=== PATIENT | female | born 1950 | race Caucasian/White ===

== ENCOUNTER → 2017-02-02 | Outpatient (CLI) | payer MEDICARE, OTHER ==
--- NOTE | 2017-02-02 18:08 | RAD ---
Right lower extremity venous doppler ultrasound History: Right lower leg swelling and pain for one month Comparison: None Findings: Multiple grayscale, color, and duplex spectral analysis sonographic images were acquired of the right lower extremity veins to evaluate for the presence of DVT. There is normal phasicity. Normal compression, color-flow, and augmentation is demonstrated from the right common femoral to the popliteal veins. There is normal color flow of the proximal greater saphenous and profunda femoris veins. There is normal color flow of segments of the calf veins. Impression: 1. There is no evidence of deep venous thrombosis from the right common femoral to popliteal veins. Electronically signed by: Polo Elena MD (02/02/2017 6:05 PM) [employer]
== END | disposition home or self-care (01) ==
LOC: US 17:02
PROVIDERS: ATTEND Physician Assistant
DX: M79.604 Pain in right leg (principal); M79.89 Other specified soft tissue disorders
CPT/HCPCS: 93971

== ENCOUNTER 2017-02-09 16:57 | Inpatient (IN) | payer MEDICARE, OTHER ==
[~2017-02-09] VITALS: Ht 160 cm; Wt 140.4 kg
[2017-02-09] MEDS ORDERED: diphenhydrAMINE 50 MG/ML VIAL IV PRN (17:30)
[2017-02-09 17:32] VITALS: BP 188/76
[2017-02-09] MEDS ORDERED: CARI350T PO ×2 (18:45→19:37)
[2017-02-09] MEDS ORDERED: FURO80TA3 PO (18:45)
[2017-02-09] MEDS ORDERED: FISH12002 PO (18:45)
[2017-02-09] MEDS ORDERED: CANA300T PO (18:45)
[2017-02-09] MEDS ORDERED: DEXL60CA2 PO (18:45)
[2017-02-09] MEDS ORDERED: METF500T4 PO (18:45)
[2017-02-09] MEDS ORDERED: LACT20PA3 PO (18:45)
[2017-02-09] MEDS ORDERED: NEBI20TA2 PO (18:45)
[2017-02-09] MEDS ORDERED: LEVO200T5 PO (18:45)
[2017-02-09] MEDS ORDERED: MULT-208 PO (18:45)
[2017-02-09] MEDS ORDERED: FLUT1DIS IH (18:45)
[2017-02-09] MEDS ORDERED: POTA20TA4 PO (18:45)
[2017-02-09] MEDS ORDERED: LEVO50TA5 PO (18:45)
[2017-02-09] MEDS ORDERED: PIOG30TA41 PO (18:45)
[2017-02-09] MEDS ORDERED: ASCO500T3 PO (18:45)
[2017-02-09] MEDS ORDERED: ATEN100T PO (18:45)
[2017-02-09] MEDS ORDERED: ASPI-630 PO (18:45)
[2017-02-09] MEDS: diphenhydrAMINE HCL 25 MG CAPSULE PO PRN (18:47)
[2017-02-09] MEDS ORDERED: RANI300C PO (19:37)
[2017-02-09] MEDS ORDERED: ZOLP10TA PO (19:37)
[2017-02-09] MEDS ORDERED: POTA10TA10 PO (19:37)
[2017-02-09] MEDS ORDERED: SIMV40TA3 PO (19:37)
[2017-02-09] MEDS ORDERED: AMLO1CAP15 PO (19:37)
[2017-02-09] MEDS ORDERED: GARL1TAB PO (19:37)
[2017-02-09] MEDS ORDERED: GABA600T2 PO (19:37)
[2017-02-09] MEDS ORDERED: PREG75CA PO (19:46)
[2017-02-09 19:48] VITALS: BP 195/80
[2017-02-09 20:32] VITALS: BP 186/82
[2017-02-09] MEDS: MORPHINE ER 60 MG TABLET.ER PO SCH ×2 (20:39→21:00)
[2017-02-09] MEDS: cloNIDine HCL 0.1 MG TABLET PO PRN (20:40)
[2017-02-09 21:24] VITALS: BP 187/79
[2017-02-09 21:49] LABS: BASO % 0 % (0-3); EOS # 0.1 x10^3/uL (0.0-0.7); EOS % 2 % (0-3); HEMATOCRIT 40.9 % (36.0-47.0); HEMOGLOBIN 13.5 g/dL (12.0-15.5); LYMPH # 1.3 x10^3/uL (1.0-4.8); LYMPH % 25 % (24-48); MEAN CORPUSCULAR HEMOGLOBIN 29 pg (25-35); MEAN CORPUSCULAR HGB CONC 33 g/dL (31-37); MEAN CORPUSCULAR VOLUME 86 fL (79-100); MONO # 0.3 x10^3/uL (0.0-1.1); MONO % 6 % (0-9); NEUT # 3.5 x10^3uL (1.8-7.7); NEUT % 67 % (31-73); PLATELET COUNT 138 x10^3/uL (140-400); RED BLOOD COUNT 4.73 x10^6/uL (3.50-5.40); RED CELL DISTRIBUTION WIDTH 16.6 % (11.5-14.5); WHITE BLOOD COUNT 5.2 x10^3/uL (4.0-11.0)
[2017-02-09 22:57] VITALS: BP 183/89
[2017-02-09] MEDS ORDERED: [UNRECOGNIZED DRUG - OTHER] PO SCH (23:00)
[2017-02-09] MEDS ORDERED: BENAZEPRIL PO SCH (23:00)
[2017-02-09] MEDS ORDERED: AMLODIPINE BESYLATE PO SCH (23:00)
[2017-02-09 23:04] LABS: BILIRUBIN,URINE NEG (NEG); CLARITY,URINE CLEAR; COLOR,URINE YELLOW; GLUCOSE,URINE >=1000 mg/dL (NEG)
[2017-02-09 23:05] LABS: BACTERIA,URINE 0 /HPF (0-FEW); NITRITE,URINE NEG (NEG); RBC,URINE 0 /HPF (0-2); UROBILINOGEN,URINE 0.2 mg/dL (0.2 mg/dL); WBC,URINE 0 /HPF (0-4)
[2017-02-09 23:11] LABS: AMPHETAMINE/METHAMPHETAMINE NEG (NEG); BARBITURATES NEG (NEG); BENZODIAZEPINES NEG (NEG); CANNABINOIDS NEG (NEG); COCAINE NEG (NEG); METHADONE NEG (NEG); OPIATES POS (NEG); PHENCYCLIDINE NEG (NEG)
[2017-02-09] MEDS ORDERED: PREGABALIN 75 MG CAPSULE PO SCH (23:30)
[2017-02-09] MEDS: CARISOPRODOL 350 MG TABLET PO SCH (23:42)
[2017-02-09] MEDS: SIMVASTATIN 40 MG TABLET. PO SCH (23:43)
[2017-02-09] MEDS: ZOLPIDEM 10 MG TABLET. PO SCH (23:43)
[2017-02-09] MEDS: amLODIPine BESYLATE 10 MG TABLET PO SCH (23:49)
[2017-02-09] MEDS: LISINOPRIL 20 MG TABLET PO SCH (23:49)
[2017-02-09] MEDS: GABAPENTIN 300 MG CAPSULE. PO SCH (23:50)
[2017-02-09 23:59] VITALS: BP 183/87
[2017-02-10] VITALS (12 sets, daily range): BP systolic 143–230; BP diastolic 68–88
[2017-02-10] MEDS: LEVOTHYROXINE 50 MCG TABLET PO SCH (06:15)
[2017-02-10 06:40] LABS: HEMATOCRIT 40.3 % (36.0-47.0); HEMOGLOBIN 13.4 g/dL (12.0-15.5); RED BLOOD COUNT 4.7 x10^6/uL (3.50-5.40); RED CELL DISTRIBUTION WIDTH 16.2 % (11.5-14.5); WHITE BLOOD COUNT 5.7 x10^3/uL (4.0-11.0)
[2017-02-10 06:43] LABS: ALBUMIN 3.2 g/dL (3.4-5.0); CALCIUM 8.5 mg/dL (8.5-10.1); CREATININE 0.9 mg/dL (0.6-1.0); GFR 62.5; MAGNESIUM 2.2 mg/dL (1.8-2.4); POTASSIUM 3.2 mmol/L (3.5-5.1); TOTAL BILIRUBIN 0.8 mg/dL (0.2-1.0); TOTAL PROTEIN 6.4 g/dL (6.4-8.2)
[2017-02-10] MEDS: PANTOPRAZOLE 40 MG TABLET. PO SCH (07:28)
[2017-02-10] MEDS: CARISOPRODOL 350 MG TABLET PO SCH ×2 (07:29→22:11)
[2017-02-10] MEDS: KETOROLAC 15 MG/ML VIAL. IV PRN ×3 (07:44→12:19)
[2017-02-10] MEDS: ASCORBIC ACID 500 MG TABLET PO SCH (07:48)
[2017-02-10] MEDS: METOPROLOL TART IMMED RELEASE 50 MG TABLET PO SCH ×2 (07:48→20:51)
[2017-02-10] MEDS: FUROSEMIDE 80 MG TABLET PO SCH ×2 (07:48→14:23)
[2017-02-10] MEDS: MULTIVITAMIN with MINERAL TABLET. PO SCH (07:48)
[2017-02-10] MEDS: PIOGLITAZONE 15 MG TABLET. PO SCH (07:49)
[2017-02-10] MEDS ORDERED: PREGABALIN 75 MG CAPSULE PO SCH (09:00)
[2017-02-10] MEDS ORDERED: CARISOPRODOL 350 MG TABLET PO SCH ×3 (09:00→23:00)
[2017-02-10] MEDS ORDERED: NON FORMULARY ITEM (Levothyroxine Sodium 1 TAB) PO SCH (09:00)
[2017-02-10] MEDS: LACTULOSE 20 GM/30 ML SOLUTION. PO SCH (09:00)
[2017-02-10] MEDS ORDERED: NON FORMULARY ITEM (Fluticasone/Salmeterol (Advair 100-50 Diskus) 1 PUFF) IH SCH (09:00)
[2017-02-10] MEDS ORDERED: cloNIDine TTS-1 1 PATCH PATCH TD SCH (09:00)
[2017-02-10] MEDS: OMEGA-3 FATTY ACIDS/FISH OIL 1,000 MG CAPSULE. PO SCH (09:02)
[2017-02-10] MEDS: ASPIRIN 81 MG TAB.CHEW PO SCH ×2 (09:03→20:46)
[2017-02-10] MEDS: metFORMIN 500 MG TABLET PO SCH (09:03)
[2017-02-10] MEDS: POTASSIUM CHLORIDE 20 MEQ TABLET.ER. PO SCH (09:03)
--- NOTE | 2017-02-10 11:20 | HP ---
ADMIT DATE: 02/09/2017 REASON FOR ADMISSION: Narcotic withdrawal. HISTORY OF PRESENT ILLNESS: This is a 66-year-old female who is well known to me from previous practice, who was admitted for treatment of narcotic withdrawal. She has a longstanding history of chronic pain including fibromyalgia and knee pain and had been on methadone and had been weaned off methadone just in the last couple of days. She has not had any methadone since last week. She had been put on Embeda, but she did not feel well on that. So she has been a couple of days off of any narcotics at all, she feels very uncomfortable in her skin, hot, cold, twitchy, and weak. PAST MEDICAL HISTORY: Fatigue, generalized weakness, medication withdrawal, low lumbar back pain, chronic pain, chronic use of narcotics, morbid obesity, fibromyalgia, and recently treated for cellulitis of the right leg, also poor dentition and has a cracked tooth in the lower left. MEDICATIONS: She came with a list. They were extensive and were correct and placed correctly. SOCIAL HISTORY: Does not smoke or drink. She is pretty much limited to her apartment. Drives occasionally. Used to go to orthodoxy, but has not been to orthodoxy in a long time. Has one brother that looks in on her and a daughter that helps with her care. She is . PAST MEDICAL HISTORY: Diabetes, breast cancer, thyroid cancer stage 1, and hypothyroidism. PAST SURGICAL HISTORY: Total thyroidectomy, tubal ligation, lumpectomy right breast, hysterectomy, knee replacement, carpal tunnel release, and cataract removal. FAMILY HISTORY: Mother of heart disease and CVA. Father of heart disease. Paternal grandmother of heart disease and CVA. HABITS: The patient quit smoking in 1994. ALLERGIES: PENICILLIN, SULFA, CEPHALEXIN, CODEINE, LEVOFLOXACIN, OMEPRAZOLE, AND VALSARTAN. REVIEW OF SYSTEMS: Consistent with HPI, withdrawal symptoms, hot, cold, twitchy, weak, chronic pain, immobility, depression. OBJECTIVE: VITAL SIGNS: She has had some high blood pressures, one was 211/99, but now 186/86, pulse 61, temperature 98.6. GENERAL: Color is pale. Tongue was moist. Dentition is in poor repair. LUNGS: Clear. CARDIOVASCULAR: Regular rhythm and rate. ABDOMEN: Large, obese, nontender. EXTREMITIES: With 1-2+ edema. She has tenderness everywhere. LABORATORY DATA: Potassium is 3.2. Glucose 122. Drug screen positive for opiates. Platelet count is slightly low at 130. Urinalysis clear except for glucosuria. ASSESSMENT: 1. Narcotic withdrawal. 2. Chronic pain. 3. Chronic use of narcotics. 4. Fibromyalgia. 5. Hypokalemia. 6. Morbid obesity. 7. Fall risk. 8. Type 2 diabetes. 9. Surgically induced hypothyroidism. PLAN: The patient seems to wax and wane about whether she wants to be put back on the morphine as according to she was supposed to be on 60 twice a day extended release but she has been refusing it. We will continue to treat her with Ativan, Toradol, and Benadryl for withdrawal symptoms and we will treat her hypokalemia. JULIET MCMANUS DO DR: RAE/noemi JOB#: [id number] / [id number]
[2017-02-10] MEDS: PREGABALIN 75 MG CAPSULE PO SCH ×2 (11:22→19:28)
[2017-02-10] MEDS: cloNIDine HCL 0.1 MG TABLET PO PRN (11:49)
[2017-02-10] MEDS: diphenhydrAMINE HCL 25 MG CAPSULE PO PRN ×2 (14:22→20:48)
[2017-02-10] MEDS: FAMOTIDINE 20 MG TABLET PO SCH (16:17)
[2017-02-10] MEDS: POTASSIUM CHLORIDE 10 MEQ TABLET.ER. PO SCH (16:17)
[2017-02-10] MEDS: KETOROLAC 30 MG/ML VIAL. IV PRN ×2 (16:17→23:15)
[2017-02-10] MEDS: LORazepam 0.5 MG TABLET PO PRN ×2 (16:17→22:11)
[2017-02-10] MEDS: hydrALAZINE 20 MG/ML VIAL. IV PRN ×2 (19:29→23:15)
[2017-02-10] MEDS: ZOLPIDEM 10 MG TABLET. PO SCH (20:46)
[2017-02-10] MEDS: GABAPENTIN 300 MG CAPSULE. PO SCH (20:46)
[2017-02-10] MEDS: SIMVASTATIN 40 MG TABLET. PO SCH (20:46)
[2017-02-10] MEDS: LISINOPRIL 20 MG TABLET PO SCH (20:49)
[2017-02-10] MEDS: amLODIPine BESYLATE 10 MG TABLET PO SCH (20:50)
[2017-02-10] MEDS ORDERED: AMLODIPINE BESYLATE PO SCH (21:00)
[2017-02-10] MEDS ORDERED: NON FORMULARY ITEM (Gabapentin 600 MG) PO SCH (21:00)
[2017-02-10] MEDS ORDERED: ZOLPIDEM 10 MG TABLET. PO SCH (21:00)
[2017-02-10] MEDS ORDERED: BENAZEPRIL PO SCH (21:00)
[2017-02-10] MEDS ORDERED: GARLIC PO SCH (21:00)
[2017-02-10] MEDS ORDERED: [UNRECOGNIZED DRUG - OTHER] PO SCH (21:00)
[2017-02-10] MEDS ORDERED: SIMVASTATIN 40 MG TABLET. PO SCH (21:00)
[2017-02-11] VITALS (14 sets, daily range): BP systolic 165–223; BP diastolic 64–86
--- NOTE | 2017-02-11 00:50 | ACF ---
Admission Criteria Forms [facility]CULOSKELETAL DISE[facility] Clinical Indications for Admission to Inpatient Care (Place 'X' for any and all applicable criteria): Hospital admission is needed for appropriate care of the patient because of 1 or more of the following: [ ]I. Fracture, dislocation, or other musculoskeletal injury requiring inpatient care(medical) as indicated by 1 or more of the following(4)(5)(6)(7) [ ]a) Vertebral fracture requiring observation for instability or neurologic compromise (8) [ ]b) Compartment syndrome (proven or cannot be ruled out during observation level of care) (9) [ ]c) Limb-threatening injury [ ]d) Major injury requiring inpatient stabilization such as traction initiation or external fixation before internal fixation or closure of complex or open fracture [ ]e) Major injury requiring inpatient treatment after emergency or observation level care (as appropriate) [ ]f) Severe pain requiring acute inpatient management [ ]g) Injury with suspicion of abuse or neglect (eg., child, dependent elderly) [ ]II. Newly diagnosed or suspected bone, joint, or orthopedic device infection (e.g., osteomyelitis, septic arthritis) needing 1 or more of the following(1)(2)(3) [ ]a) IV antibiotics that cannot be initiated in other than inpatient setting (e.g., patient too unstable or home infusion not available) [ ]b) Device removal or replacement [ ]c) Bone or soft tissue debridement [ ]d) Joint drainage (drain placement or repetitive aspirations) [ ]III. Severe rheumatologic disease (e.g., systemic lupus erythematosus, rheumatoid arthritis) with complications or comorbidities (Also use Optimal Recovery Care Criteria or General Recovery Criteria as appropriate on the basis of predominant condition), including 1 or more of the following( 10)(11)(12)(13) [ ]a) Severe infection (e.g., ELECTROTYPER infection, sepsis) (14) [ ]b) Respiratory complications, including 1 or more of the following : [ ]i) Pleural effusion with respiratory compromise [ ]ii) Pulmonary hypertension with congestive failure [ ]iii) Respiratory failure [ ]iv) Pulmonary hemorrhage (15) [ ]c) Hematologic disease, including 1 or more of the following: [ ]i) Coagulopathy with bleeding [ ]ii) Thrombosis with hypercoagulable state [ ]iii) Thrombotic thrombocytopenic purpura [ ]d) Cerebritis with seizures, psychosis, or other severe abnormalities [ ]e) Vertebral destruction with monitoring needed for cervical myelopathy& possible respiratory compromise [ ]f) Exacerbation that requires inpatient treatment (e.g., intravenous immunosuppression) (16) [ ]g) Acute renal failure [ ]h) Cerebritis with seizures, psychosis, Altered mental status, or other neurologic abnormalities [ ]i) Pericardial effusion with tamponade [ ]j) Vertebral destruction, with monitoring needed for cervical myelopathy and possible respiratory compromise [ ]IV. Severe vasculitis with complications or comorbidities (Also use Optimal Recovery Care Criteria General Recovery Criteria as appropriate on the basis of predominant condition), including 1 or more of the following(11)(12)(17)(18)(19)(20) [ ]a) Exacerbation that requires inpatient treatment (e.g., intravenous immunosuppression) (19)(21) [ ]b) Pulmonary hemorrhage (15) [ ]c) ELECTROTYPER vasculitis with seizures, psychosis, Altered mental status that is severe or persistent, or other severe abnormalities (22) [ ]d) Cerebral infarction [ ]e) Gastrointestinal ischemia [ ]f) Gangrene or threatened amputation [ ]g) Renal failure (16) [ ]h) Other significant complications of vasculitis ( eg., tissue or organ ischemia, organ dysfunction ) [ ]V. Severe myopathy as indicated by 1 or more of the following (28)(29) [ ]a) New onset of airway compromise or inability to swallow [ ]b) Respiratory deterioration with observation needed for impending respiratory failure [ ]c) Exacerbation that requires inpatient treatment (e.g., intravenous immunosuppression) [ ]. Severe crystal gout (arthropathy) indicated by 1 or more of the following (23)(24) [ ]a) Severe pain requiring acute inpatient management [ ]b) Exacerbation that requires inpatient treatment (e.g., intravenous treatment) [ ]VII.Rhabdomyolysis and 1 or more of the following (25)(26)(27) [ ]a) Acute renal failure [ ]b) Need for intravenous hydration after emergency or observation level care (as appropriate) [ ]c) Inability to maintain oral hydration [ ]d) Change in mental status [ ]e) Electrolyte abnormality that remains after emergency or observation level care (as appropriate) [ ]VIII Post amputation complication, as indicated by ANY ONE of the following [ ]a) Infection [ ]b) Dehiscence [ ]c) Myodesis failure [x]IX. Severe pain requiring acute inpatient management due to musculoskeletal condition [ ]X. Musculoskeletal Disease and ALL of the following: [ ]a) Symptom or finding for which emergency and observation care have failed or are not considered appropriate (Use General Criteria: Observation Care as appropriate) [ ]b) Presence of ANY ONE of the following [ ]i) A General Admission Criteria [ ]ii) A Pediatric General Admission Criteria The original [facility] content created by [facility] has been revised. The portions of the content which have been revised are identified through the use of italic text or in bold, and [facility] has neither reviewed nor approved the modified material. All other unmodified content is copyright [facility]. Please see references footnoted in the original [facility] edition 2016 Admission Criteria Met?: Yes JAN MOSHER Feb 11, 2017 00:50
[2017-02-11] MEDS: PREGABALIN 75 MG CAPSULE PO SCH ×3 (02:49→19:21)
[2017-02-11] MEDS: CARISOPRODOL 350 MG TABLET PO SCH ×2 (02:49→23:24)
[2017-02-11] MEDS: LORazepam 0.5 MG TABLET PO PRN ×2 (02:49→15:05)
[2017-02-11] MEDS: diphenhydrAMINE HCL 25 MG CAPSULE PO PRN (02:49)
[2017-02-11] MEDS: hydrALAZINE 20 MG/ML VIAL. IV PRN (04:12)
[2017-02-11] MEDS: cloNIDine HCL 0.1 MG TABLET PO PRN ×2 (04:39→14:53)
[2017-02-11] MEDS: LEVOTHYROXINE 50 MCG TABLET PO SCH (05:38)
[2017-02-11] MEDS: KETOROLAC 30 MG/ML VIAL. IV PRN (05:50)
[2017-02-11 06:53] LABS: BASO % 0 % (0-3); EOS % 1 % (0-3); HEMATOCRIT 41.2 % (36.0-47.0); HEMOGLOBIN 13.6 g/dL (12.0-15.5); LYMPH # 1.7 x10^3/uL (1.0-4.8); LYMPH % 32 % (24-48); MEAN CORPUSCULAR HEMOGLOBIN 28 pg (25-35); MEAN CORPUSCULAR HGB CONC 33 g/dL (31-37); MEAN CORPUSCULAR VOLUME 86 fL (79-100); MONO # 0.3 x10^3/uL (0.0-1.1); MONO % 7 % (0-9); NEUT # 3.1 x10^3uL (1.8-7.7); NEUT % 60 % (31-73); PLATELET COUNT 125 x10^3/uL (140-400); RED BLOOD COUNT 4.82 x10^6/uL (3.50-5.40); RED CELL DISTRIBUTION WIDTH 16.8 % (11.5-14.5); WHITE BLOOD COUNT 5.1 x10^3/uL (4.0-11.0)
[2017-02-11 06:56] LABS: CALCIUM 8.8 mg/dL (8.5-10.1); CREATININE 1.1 mg/dL (0.6-1.0); GFR 49.5; MAGNESIUM 2.2 mg/dL (1.8-2.4); POTASSIUM 3.5 mmol/L (3.5-5.1)
--- NOTE | 2017-02-11 06:58 | PDOC ---
PROGRESS NOTES Assessment 1. Severe intractable pain, acute on chronic: Pt is not sure if she wants to go back on opioids, but states that she is "not sure I can live like this much longer." I offered MS Angela as an option to slowly taper down the dose over several months as outpatient. She is not sure what she wants to do, and wants to d/w her daughter first. I will check back on her later. 2. Fibromyalgia: See above. Pt is already on multiple medications. Will need to d/c Toradol soon due to risk of renal toxicity. 3. Hypertension, labile, uncontrolled: Multifactorial. Pt on PRN hydralazine and clonidine along w/' her regular meds. This is likely in part due to her morbid obesity, and partly due to opioid withdrawal and pain. 4. Headache: Tension related. No focal neuro deficits. Consider CT scan if not improving. 5. Morbid obesity: Pt is going to have to get her pain in control in order to aid in weight loss. 6. Diabetes: Continue current meds. Accucheck AC/HS. Avoid hypoglycemia. 7. DVT proph: Start Lovenox daily. 8. Hypothyroidism: Continue levothyroxine. 9. Disp: Pt will require 2 midnights minimum to manage her opioid withdrawal, severe pain, and multiple comorbid conditions. Problems: Plan of Care: see other orders Subjective Pt seen on rounds and d/w nursing. Nursing had trouble controlling her BP all night. Pt c/o severe "all-over" pain. Reports she used to be on 350 mcg Duragesic every other day for fibromyalgia, then had to switch to methadone ( was on 9 thirty mg tabs per day), then weaned herself off that and was going to go on Embeda but could not get it at the pharmacy. She states that even when she was on the other meds she would have withdrawal symptoms if her meds wore off. She states she is miserable. Pain is severe, all over, non-localized. She is having a GONZALES, no chest pain or SOA. +itching, no rash. No dizziness. Pt states she would like to avoid going back on opioids but is not sure she can live like this. Objective Vital Signs Date Time Temp Pulse Resp B/P (MAP) Pulse Ox O2 Delivery O2 Flow Rate FiO2 02/11/17 05:45 98.2 71 22 185/86 (119) 95 Room Air Intake and Output 02/11/17 07:00 Intake Total 1720 ml Balance 1720 ml Intake Oral 1720 ml # Voids 9 Abdomen: Soft, No tenderness Heart: Regular rate, Normal S1, Normal S2, No murmurs Extremities: No cyanosis, Normal pulses General: Alert, Oriented X3, Cooperative, No acute distress HEENT: Atraumatic, PERRLA, EOMI, Mucous membr. moist/pink Lungs: Clear to auscultation, Normal air movement Neck: No JVD Neuro: Strength at 5/5 X4 ext, Normal tone, Sensation intact, Cranial nerves 3- 12 NL Psych/Mental Status: Mental status NL, Mood NL Skin: No rashes Review of Relevant I have reviewed the following items tashi (where applicable) has been applied. Labs Laboratory Tests Test 02/09/17 18:00 02/09/17 20:20 02/09/17 22:52 02/10/17 05:45 Nasal Screen MRSA (PCR) Negative (Negative) White Blood Count 5.2 x10^3/uL (4.0-11.0) 5.7 x10^3/uL (4.0-11.0) Red Blood Count 4.73 x10^6/uL (3.50-5.40) 4.70 x10^6/uL (3.50-5.40) Hemoglobin 13.5 g/dL (12.0-15.5) 13.4 g/dL (12.0-15.5) Hematocrit 40.9 % (36.0-47.0) 40.3 % (36.0-47.0) Mean Corpuscular Volume 86 fL (79-100) 86 fL (79-100) Mean Corpuscular Hemoglobin 29 pg (25-35) 29 pg (25-35) Mean Corpuscular Hemoglobin Concent 33 g/dL (31-37) 33 g/dL (31-37) Red Cell Distribution Width 16.6 % (11.5-14.5) 16.2 % (11.5-14.5) Platelet Count 138 x10^3/uL (140-400) 130 x10^3/uL (140-400) Neutrophils (%) (Auto) 67 % (31-73) Lymphocytes (%) (Auto) 25 % (24-48) Monocytes (%) (Auto) 6 % (0-9) Eosinophils (%) (Auto) 2 % (0-3) Basophils (%) (Auto) 0 % (0-3) Neutrophils # (Auto) 3.5 x10^3uL (1.8-7.7) Lymphocytes # (Auto) 1.3 x10^3/uL (1.0-4.8) Monocytes # (Auto) 0.3 x10^3/uL (0.0-1.1) Eosinophils # (Auto) 0.1 x10^3/uL (0.0-0.7) Basophils # (Auto) 0.0 x10^3/uL (0.0-0.2) Urine Collection Type Void Urine Color Yellow Urine Clarity Clear Urine pH 7.5 Urine Specific Decker 1.010 Urine Protein Neg (NEG-TRACE) Urine Glucose (UA) >=1000 mg/dL (NEG) Urine Ketones (Stick) Neg mg/dL (NEG) Urine Blood Neg (NEG) Urine Nitrite Neg (NEG) Urine Bilirubin Neg (NEG) Urine Urobilinogen Dipstick 0.2 mg/dL (0.2 mg/dL) Urine Leukocyte Esterase Neg (NEG) Urine RBC 0 /HPF (0-2) Urine WBC 0 /HPF (0-4) Urine Squamous Epithelial Cells None /LPF Urine Bacteria 0 /HPF (0-FEW) Urine Opiates Screen Pos (NEG) Urine Methadone Screen Neg (NEG) Urine Barbiturates Neg (NEG) Urine Phencyclidine Screen Neg (NEG) Urine Amphetamine/Methamphetamine Neg (NEG) Urine Benzodiazepines Screen Neg (NEG) Urine Cocaine Screen Neg (NEG) Urine Cannabinoids Screen Neg (NEG) Urine Ethyl Alcohol Neg (NEG) Sodium Level 140 mmol/L (136-145) Potassium Level 3.2 mmol/L (3.5-5.1) Chloride Level 105 mmol/L (98-107) Carbon Dioxide Level 31 mmol/L (21-32) Anion Gap 4 (6-14) Blood Urea Nitrogen 13 mg/dL (7-20) Creatinine 0.9 mg/dL (0.6-1.0) Estimated GFR (Cockcroft-Gault) 62.5 BUN/Creatinine Ratio 14 (6-20) Glucose Level 122 mg/dL (70-99) Calcium Level 8.5 mg/dL (8.5-10.1) Magnesium Level 2.2 mg/dL (1.8-2.4) Total Bilirubin 0.8 mg/dL (0.2-1.0) Aspartate Amino Transf (AST/SGOT) 21 U/L (15-37) Alanine Aminotransferase (ALT/SGPT) 32 U/L (14-59) Alkaline Phosphatase 84 U/L (46-116) Total Protein 6.4 g/dL (6.4-8.2) Albumin 3.2 g/dL (3.4-5.0) Albumin/Globulin Ratio 1.0 (1.0-1.7) Medications Current Medications Clonidine HCl (Catapres) 0.1 mg PRN Q4HRS PRN PO SBP > 160 OR DBP > 90 Last administered on 02/11/17 04:39; Start 02/09/17 at 17:30 Diphenhydramine HCl (Benadryl) 25 mg PRN Q6HRS PRN IV ITCHING; Start 02/09/17 at 17:30; Stop 02/09/17 at 18:40; Status DC Morphine Sulfate (Ms Contin) 60 mg BID PO Last administered on 02/09/17 20:39 ; Start 02/09/17 at 19:35; Stop 02/10/17 at 08:51; Status DC Diphenhydramine HCl (Benadryl) 25 mg PRN Q6HRS PRN PO ITCHING Last administered on 02/11/17 02:49; Start 02/09/17 at 18:45 Aspirin (Children'S Aspirin) 81 mg BID PO Last administered on 02/10/17 20:46 ; Start 02/10/17 at 09:00 Carisoprodol (Soma) 350 mg BID PO ; Start 02/10/17 at 09:00; Stop 02/10/17 at 09 :00; Status DC Carisoprodol (Soma) 350 mg QHS PO ; Start 02/10/17 at 21:00; Status Cancel Furosemide (Lasix) 80 mg BID92 PO Last administered on 02/10/17 14:23; Start 02/10/17 at 09:00 Levothyroxine Sodium (Synthroid) 50 mcg DAILY06 PO Last administered on 05:38; Start 02/10/17 at 06:00 Metformin HCl (Glucophage) 500 mg DAILYWBKFT PO Last administered on 02/10/17 09:03; Start 02/10/17 at 08:00 Potassium Chloride (Klor-Con) 40 meq DAILY PO Last administered on 02/10/17 09 :03; Start 02/10/17 at 09:00 Pregabalin (Lyrica) 75 mg TID PO ; Start 02/10/17 at 09:00; Stop 02/10/17 at 09: 00; Status DC Simvastatin (Zocor) 40 mg QHS PO ; Start 02/10/17 at 21:00; Stop 02/10/17 at 21: 00; Status DC Zolpidem Tartrate (Ambien) 10 mg QHS PO ; Start 02/10/17 at 21:00; Stop at 21:00; Status DC Non-Formulary Medication 1 cap HS PO ; Start 02/10/17 at 21:00; Stop 02/10/17 at 21:00; Status DC Pantoprazole Sodium (Protonix) 40 mg DAILYAC PO Last administered on 02/10/17 07:28; Start 02/10/17 at 07:30 Non-Formulary Medication 1 puff DAILY IH ; Start 02/10/17 at 09:00; Status UNV Non-Formulary Medication 600 mg HS PO ; Start 02/10/17 at 21:00; Stop 02/10/17 at 21:00; Status DC Lactulose 60 gm DAILY PO ; Start 02/10/17 at 09:00 Non-Formulary Medication 1 tab DAILY PO ; Start 02/10/17 at 09:00; Stop at 09:00; Status DC Metoprolol Tartrate (Lopressor) 50 mg BID PO Last administered on 02/10/17 20: 51; Start 02/10/17 at 09:00 Pioglitazone HCl (Actos) 30 mg DAILY PO Last administered on 02/10/17 07:49; Start 02/10/17 at 09:00 Potassium Chloride (Klor-Con) 20 meq DAILYBFRSUP PO Last administered on 16:17; Start 02/10/17 at 17:00 Famotidine (Pepcid) 40 mg DAILYWSUP PO Last administered on 02/10/17 16:17; Start 02/10/17 at 17:00 Ascorbic Acid (Vitamin C) 500 mg DAILY PO Last administered on 02/10/17 07:48 ; Start 02/10/17 at 09:00 Fish Oil (Fish Oil) 4,000 mg DAILY PO Last administered on 02/10/17 09:02; Start 02/10/17 at 09:00 Non-Formulary Medication 1 each HS PO ; Start 02/10/17 at 21:00; Status UNV Multivitamins/ Calcium (Thera-M Plus) 1 tab DAILY PO Last administered on 07:48; Start 02/10/17 at 09:00 Lorazepam (Ativan) 0.25 mg PRN Q4HRS PRN PO ANXIETY / AGITATION Last administered on 02/11/17 02:49; Start 02/09/17 at 23:30 Ketorolac Tromethamine (Toradol) 15 mg PRN Q6HRS PRN IV PAIN Last administered on 02/10/17 12:19; Start 02/09/17 at 23:30; Stop 02/14/17 at 23:29 Carisoprodol (Soma) 350 mg BID PO Last administered on 02/10/17 07:29; Start 02/09/17 at 23:30; Stop 02/10/17 at 08:12; Status DC Pregabalin (Lyrica) 75 mg TID PO Last administered on 02/09/17 23:42; Start at 23:30; Stop 02/10/17 at 07:54; Status DC Simvastatin (Zocor) 40 mg QHS PO Last administered on 02/10/17 20:46; Start at 23:30 Zolpidem Tartrate (Ambien) 10 mg QHS PO Last administered on 02/10/17 20:46; Start 02/09/17 at 23:30 Non-Formulary Medication 1 cap HS PO ; Start 02/09/17 at 23:00; Status UNV Gabapentin (Neurontin) 600 mg HS PO Last administered on 02/10/17 20:46; Start 02/09/17 at 23:30 Amlodipine Besylate (Norvasc) 10 mg HS PO Last administered on 02/10/17 20:50 ; Start 02/09/17 at 23:30 Lisinopril (Prinivil) 40 mg HS PO Last administered on 02/10/17 20:49; Start 02/09/17 at 23:30 Clonidine HCl (Catapres Tts-1) 1 patch WEEKLY TD Last administered on 09:05; Start 02/10/17 at 09:00 Pregabalin (Lyrica) 75 mg TID@0300,1100,1900 PO Last administered on 02/11/17 02:49; Start 02/10/17 at 11:00 Carisoprodol (Soma) 350 mg BID@0300,2300 PO ; Start 02/10/17 at 23:00; Stop 05/19 at 23:00; Status DC Carisoprodol (Soma) 350 mg DAILY@0300 PO Last administered on 02/11/17 02:49; Start 02/11/17 at 03:00 Carisoprodol (Soma) 175 mg DAILY@2300 PO Last administered on 02/10/17 22:11; Start 02/10/17 at 23:00 Ketorolac Tromethamine (Toradol) 30 mg PRN Q6HRS PRN IV PAIN Last administered on 02/11/17 05:50; Start 02/10/17 at 12:00; Stop 02/15/17 at 11:59 Hydralazine HCl (Apresoline) 10 mg PRN Q4HRS PRN IV ELEVATED BP, SEE COMMENTS Last administered on 02/11/17 04:12; Start 02/10/17 at 19:15 Active Scripts Active Reported Lyrica (Pregabalin) 75 Mg Capsule 75 Mg PO TID Garlic 1 Each Tablet 1 Each PO HS Simvastatin 40 Mg Tablet 1 Tab PO QHS Soma (Carisoprodol) 350 Mg Tablet 1 Tab PO QHS Ambien (Zolpidem Tartrate) 10 Mg Tablet 1 Tab PO QHS Gabapentin 600 Mg Tablet 600 Mg PO HS Amlodipine-Benazepril 10-40 Mg (Amlodipine Besylate/Benazepril) 1 Each Capsule 1 Cap PO HS Ranitidine Hcl 300 Mg Capsule 1 Cap PO DAILYWSUP Potassium Chloride 10 Meq Tablet.er 20 Meq PO DAILYBFRSUP Aspirin 81 Mg Tab.chew 81 Mg PO BID Multi-Day Vitamins (Multivitamin) 1 Each Tablet 1 Tab PO DAILY Ascorbic Acid 500 Mg Tablet 500 Mg PO DAILY Advair 100-50 Diskus (Fluticasone/Salmeterol) 1 Each Disk.w.dev 1 Puff IH DAILY Klor-Con M20 (Potassium Chloride) 20 Meq Tab.er.prt 2 Tab PO DAILY Kristalose (Lactulose) 20 Gm Packet 60 Gm PO DAILY Dexilant (Dexlansoprazole) 60 Mg Cap.mp 1 Cap PO DAILY Bystolic (Nebivolol Hcl) 20 Mg Tablet 1 Tab PO DAILY Furosemide 80 Mg Tablet 1 Tab PO BID Metformin Hcl 500 Mg Tablet 1 Tab PO DAILY Levothyroxine Sodium 200 Mcg Tablet 1 Tab PO DAILY Levothyroxine Sodium 50 Mcg Tablet 1 Tab PO DAILY Invokana (Canagliflozin) 300 Mg Tablet 300 Mg PO Actos (Pioglitazone Hcl) 30 Mg Tablet 1 Tab PO DAILY [place] 3-6-9 1,200 mg Softgel (Fish Oil/Borage/Flax/Om3,6,9#1) 1,200 Mg Capsule 4 Tab PO DAILY Soma (Carisoprodol) 350 Mg Tablet 1 Tab PO BID Vitals/I & O Vital Sign - Last 24 Hours 02/10/17 02/10/17 02/10/17 02/10/17 07:48 07:53 08:00 11:08 Temp 98.6 Pulse 61 71 Resp 18 B/P (MAP) 211/99 161/80 (107) O2 Delivery Room Air 02/10/17 02/10/17 02/10/17 02/10/17 11:30 11:49 16:15 16:20 Temp 98.6 98.4 Pulse 71 69 Resp 22 B/P (MAP) 183/100 143/86 (105) Pulse Ox 97 02/10/17 02/10/17 02/10/17 02/10/17 18:51 19:29 19:32 19:50 Temp 98.8 Pulse 66 67 66 Resp 24 22 B/P (MAP) 230/88 (135) 230/88 213/81 (125) Pulse Ox 98 97 O2 Delivery Room Air Room Air 02/10/17 02/10/17 02/10/17 02/10/17 20:40 20:49 20:50 20:51 Pulse 66 79 77 79 Resp 22 B/P (MAP) 169/77 (107) 169/77 169/77 169/77 Pulse Ox 96 O2 Delivery Room Air 02/10/17 02/10/17 02/10/17 02/11/17 23:15 23:31 23:51 00:51 Pulse 68 68 68 84 Resp 20 20 18 B/P (MAP) 200/80 200/80 (120) 197/82 (120) 177/70 (105) Pulse Ox 96 94 94 O2 Delivery Room Air Room Air Room Air 02/11/17 02/11/17 02/11/17 02/11/17 02:54 03:54 04:04 04:12 Pulse 70 69 82 81 Resp 18 18 20 B/P (MAP) 193/72 (112) 210/81 (124) 182/84 (116) 182/84 Pulse Ox 92 91 91 O2 Delivery Room Air Room Air Room Air 02/11/17 02/11/17 02/11/17 04:24 04:39 05:45 Temp 98.2 Pulse 80 80 71 Resp 22 B/P (MAP) 195/80 (118) 195/80 185/86 (119) Pulse Ox 95 O2 Delivery Room Air Intake and Output 02/10/17 02/10/17 02/11/17 15:00 23:00 07:00 Intake Total 200 ml 480 ml 1040 ml Balance 200 ml 480 ml 1040 ml WES HUANG MD Feb 11, 2017 06:58
[2017-02-11] MEDS ORDERED: POLYETHYLENE GLYCOL 3350 17 GM PACKET. PO PRN (07:30)
[2017-02-11] MEDS: PANTOPRAZOLE 40 MG TABLET. PO SCH (07:39)
[2017-02-11] MEDS: ENOXAPARIN 40 MG/0.4 ML DISP.SYRIN. SQ SCH (07:40)
[2017-02-11] MEDS: metFORMIN 500 MG TABLET PO SCH (07:40)
[2017-02-11] MEDS: ACETAMINOPHEN 500 MG TABLET PO PRN (07:41)
[2017-02-11] MEDS: POTASSIUM CHLORIDE 20 MEQ TABLET.ER. PO SCH (09:18)
[2017-02-11] MEDS: OMEGA-3 FATTY ACIDS/FISH OIL 1,000 MG CAPSULE. PO SCH (09:18)
[2017-02-11] MEDS: DOCUSATE SODIUM 100 MG CAPSULE PO SCH (09:18)
[2017-02-11] MEDS: FUROSEMIDE 80 MG TABLET PO SCH ×2 (09:19→13:45)
[2017-02-11] MEDS: PIOGLITAZONE 15 MG TABLET. PO SCH (09:19)
[2017-02-11] MEDS: ASCORBIC ACID 500 MG TABLET PO SCH (09:19)
[2017-02-11] MEDS: ASPIRIN 81 MG TAB.CHEW PO SCH ×2 (09:19→20:51)
[2017-02-11] MEDS: MULTIVITAMIN with MINERAL TABLET. PO SCH (09:19)
[2017-02-11] MEDS: METOPROLOL TART IMMED RELEASE 50 MG TABLET PO SCH ×2 (09:22→20:51)
[2017-02-11] MEDS: POTASSIUM CHLORIDE 10 MEQ TABLET.ER. PO SCH (17:30)
[2017-02-11] MEDS: FAMOTIDINE 20 MG TABLET PO SCH (17:30)
[2017-02-11] MEDS: LACTULOSE 20 GM/30 ML SOLUTION. PO SCH (19:21)
[2017-02-11] MEDS: GABAPENTIN 300 MG CAPSULE. PO SCH (20:50)
[2017-02-11] MEDS: ZOLPIDEM 10 MG TABLET. PO SCH (20:50)
[2017-02-11] MEDS: LISINOPRIL 20 MG TABLET PO SCH (20:50)
[2017-02-11] MEDS: amLODIPine BESYLATE 10 MG TABLET PO SCH (20:51)
[2017-02-12] VITALS (13 sets, daily range): BP systolic 128–223; BP diastolic 63–116
[2017-02-12] MEDS: PREGABALIN 75 MG CAPSULE PO SCH ×3 (03:10→19:06)
[2017-02-12] MEDS: CARISOPRODOL 350 MG TABLET PO SCH ×2 (03:10→22:22)
[2017-02-12] MEDS: ACETAMINOPHEN 500 MG TABLET PO PRN (06:13)
[2017-02-12] MEDS: LEVOTHYROXINE 50 MCG TABLET PO SCH (06:13)
[2017-02-12] MEDS: PANTOPRAZOLE 40 MG TABLET. PO SCH (06:14)
[2017-02-12] MEDS: ENOXAPARIN 40 MG/0.4 ML DISP.SYRIN. SQ SCH (06:14)
[2017-02-12] MEDS: metFORMIN 500 MG TABLET PO SCH (07:39)
[2017-02-12] MEDS: LACTULOSE 20 GM/30 ML SOLUTION. PO SCH (09:00)
[2017-02-12] MEDS: FUROSEMIDE 80 MG TABLET PO SCH ×2 (09:01→13:34)
[2017-02-12] MEDS: POTASSIUM CHLORIDE 20 MEQ TABLET.ER. PO SCH (09:01)
[2017-02-12] MEDS: MULTIVITAMIN with MINERAL TABLET. PO SCH (09:01)
[2017-02-12] MEDS: OMEGA-3 FATTY ACIDS/FISH OIL 1,000 MG CAPSULE. PO SCH (09:01)
[2017-02-12] MEDS: DOCUSATE SODIUM 100 MG CAPSULE PO SCH (09:01)
[2017-02-12] MEDS: ASPIRIN 81 MG TAB.CHEW PO SCH ×2 (09:01→20:14)
[2017-02-12] MEDS: PIOGLITAZONE 15 MG TABLET. PO SCH (09:02)
[2017-02-12] MEDS: ASCORBIC ACID 500 MG TABLET PO SCH (09:02)
[2017-02-12] MEDS: METOPROLOL TART IMMED RELEASE 50 MG TABLET PO SCH (09:03)
[2017-02-12] MEDS: cloNIDine HCL 0.1 MG TABLET PO PRN ×2 (13:34→20:13)
[2017-02-12] MEDS: SPIRONOLACTONE 25 MG TABLET PO SCH (15:28)
--- NOTE | 2017-02-12 15:39 | PDOC ---
PROGRESS NOTES Assessment 1. Severe intractable pain, acute on chronic: I had a long discussion w/ pt and her daughter about her pain control. Pt states she would like to go back on the long acting pain med, but not Embeda, as she says it made her feel "weird." She was on 60 mg BID, then 80 mg BID. We will start MS Contin 60 mg BID. This is a much smaller dose than the methadone she was on (90 mg daily). 2. Fibromyalgia: See above. Pt is already on multiple medications. 3. Hypertension, labile, uncontrolled: Consult cardiology. D/w Dr. Dunn today, recommends changing Toprol to Coreg, cutting Lasix in half, and starting Aldactone 25 mg daily. He will see her tomorrow. 4. Headache: Tension related. No focal neuro deficits. Sx's resolved. 5. Morbid obesity: Pt is going to have to get her pain in control in order to aid in weight loss. 6. Diabetes: Continue current meds. Accucheck AC/HS. Avoid hypoglycemia. 7. DVT proph: Lovenox 8. Hypothyroidism: Continue levothyroxine. 9. Disp: Pt will require 2 midnights minimum to manage her opioid withdrawal, severe pain, and multiple comorbid conditions. Problems: Plan of Care: see other orders Subjective Pt is seen w/ her daughter present. She states she is much more "with it" today and would like to discuss getting back on opioids. She used to be on as much as 300 mg Fentanyl patches every other day in the past. She denies headache, chest pain, SOA, or bleeding. Objective Vital Signs Date Time Temp Pulse Resp B/P (MAP) Pulse Ox O2 Delivery O2 Flow Rate FiO2 02/12/17 13:34 64 223/116 02/12/17 13:29 20 96 Room Air 02/12/17 10:07 98.5 Intake and Output 02/12/17 07:00 Intake Total 1260 ml Output Total 3801 ml Balance -2541 ml Intake Oral 1260 ml Output Urine Total 3800 ml Stool Total 1 ml # Voids 5 # Bowel Movements 5 Abdomen: Soft, No tenderness, No hepatospenomegaly Heart: Regular rate, Normal S1, Normal S2, No murmurs Extremities: Other (BLE edema, Karel's neg bilat) General: Alert, Oriented X3, Cooperative, No acute distress HEENT: EOMI, Mucous membr. moist/pink Lungs: Clear to auscultation, Normal air movement Neck: No JVD, No thyromegaly Neuro: Strength at 5/5 X4 ext, Normal tone Psych/Mental Status: Mood NL Skin: No rashes Review of Relevant I have reviewed the following items tashi (where applicable) has been applied. Labs Laboratory Tests Test 02/11/17 05:45 White Blood Count 5.1 x10^3/uL (4.0-11.0) Red Blood Count 4.82 x10^6/uL (3.50-5.40) Hemoglobin 13.6 g/dL (12.0-15.5) Hematocrit 41.2 % (36.0-47.0) Mean Corpuscular Volume 86 fL (79-100) Mean Corpuscular Hemoglobin 28 pg (25-35) Mean Corpuscular Hemoglobin Concent 33 g/dL (31-37) Red Cell Distribution Width 16.8 % (11.5-14.5) Platelet Count 125 x10^3/uL (140-400) Neutrophils (%) (Auto) 60 % (31-73) Lymphocytes (%) (Auto) 32 % (24-48) Monocytes (%) (Auto) 7 % (0-9) Eosinophils (%) (Auto) 1 % (0-3) Basophils (%) (Auto) 0 % (0-3) Neutrophils # (Auto) 3.1 x10^3uL (1.8-7.7) Lymphocytes # (Auto) 1.7 x10^3/uL (1.0-4.8) Monocytes # (Auto) 0.3 x10^3/uL (0.0-1.1) Eosinophils # (Auto) 0.0 x10^3/uL (0.0-0.7) Basophils # (Auto) 0.0 x10^3/uL (0.0-0.2) Sodium Level 142 mmol/L (136-145) Potassium Level 3.5 mmol/L (3.5-5.1) Chloride Level 106 mmol/L (98-107) Carbon Dioxide Level 29 mmol/L (21-32) Anion Gap 7 (6-14) Blood Urea Nitrogen 18 mg/dL (7-20) Creatinine 1.1 mg/dL (0.6-1.0) Estimated GFR (Cockcroft-Gault) 49.5 Glucose Level 114 mg/dL (70-99) Calcium Level 8.8 mg/dL (8.5-10.1) Magnesium Level 2.2 mg/dL (1.8-2.4) Medications Current Medications Clonidine HCl (Catapres) 0.1 mg PRN Q4HRS PRN PO SBP > 160 OR DBP > 90 Last administered on 02/12/17 13:34; Start 02/09/17 at 17:30 Diphenhydramine HCl (Benadryl) 25 mg PRN Q6HRS PRN IV ITCHING; Start 02/09/17 at 17:30; Stop 02/09/17 at 18:40; Status DC Morphine Sulfate (Ms Contin) 60 mg BID PO Last administered on 02/09/17 20:39 ; Start 02/09/17 at 19:35; Stop 02/10/17 at 08:51; Status DC Diphenhydramine HCl (Benadryl) 25 mg PRN Q6HRS PRN PO ITCHING Last administered on 02/11/17 02:49; Start 02/09/17 at 18:45 Aspirin (Children'S Aspirin) 81 mg BID PO Last administered on 02/12/17 09:01 ; Start 02/10/17 at 09:00 Carisoprodol (Soma) 350 mg BID PO ; Start 02/10/17 at 09:00; Stop 02/10/17 at 09 :00; Status DC Carisoprodol (Soma) 350 mg QHS PO ; Start 02/10/17 at 21:00; Status Cancel Furosemide (Lasix) 80 mg BID92 PO Last administered on 02/12/17 13:34; Start 02/10/17 at 09:00; Stop 02/12/17 at 15:00; Status DC Levothyroxine Sodium (Synthroid) 50 mcg DAILY06 PO Last administered on 06:13; Start 02/10/17 at 06:00 Metformin HCl (Glucophage) 500 mg DAILYWBKFT PO Last administered on 02/12/17 07:39; Start 02/10/17 at 08:00 Potassium Chloride (Klor-Con) 40 meq DAILY PO Last administered on 02/12/17 09 :01; Start 02/10/17 at 09:00; Stop 02/12/17 at 15:00; Status DC Pregabalin (Lyrica) 75 mg TID PO ; Start 02/10/17 at 09:00; Stop 02/10/17 at 09: 00; Status DC Simvastatin (Zocor) 40 mg QHS PO ; Start 02/10/17 at 21:00; Stop 02/10/17 at 21: 00; Status DC Zolpidem Tartrate (Ambien) 10 mg QHS PO ; Start 02/10/17 at 21:00; Stop at 21:00; Status DC Non-Formulary Medication 1 cap HS PO ; Start 02/10/17 at 21:00; Stop 02/10/17 at 21:00; Status DC Pantoprazole Sodium (Protonix) 40 mg DAILYAC PO Last administered on 02/12/17 06:14; Start 02/10/17 at 07:30 Non-Formulary Medication 1 puff DAILY IH ; Start 02/10/17 at 09:00; Status UNV Non-Formulary Medication 600 mg HS PO ; Start 02/10/17 at 21:00; Stop 02/10/17 at 21:00; Status DC Lactulose 60 gm DAILY PO Last administered on 02/11/17 19:21; Start 02/10/17 at 09:00 Non-Formulary Medication 1 tab DAILY PO ; Start 02/10/17 at 09:00; Stop at 09:00; Status DC Metoprolol Tartrate (Lopressor) 50 mg BID PO Last administered on 02/12/17 09: 03; Start 02/10/17 at 09:00; Stop 02/12/17 at 14:58; Status DC Pioglitazone HCl (Actos) 30 mg DAILY PO Last administered on 02/12/17 09:02; Start 02/10/17 at 09:00 Potassium Chloride (Klor-Con) 20 meq DAILYBFRSUP PO Last administered on 17:30; Start 02/10/17 at 17:00 Famotidine (Pepcid) 40 mg DAILYWSUP PO Last administered on 02/11/17 17:30; Start 02/10/17 at 17:00 Ascorbic Acid (Vitamin C) 500 mg DAILY PO Last administered on 02/12/17 09:02 ; Start 02/10/17 at 09:00 Fish Oil (Fish Oil) 4,000 mg DAILY PO Last administered on 02/12/17 09:01; Start 02/10/17 at 09:00 Non-Formulary Medication 1 each HS PO ; Start 02/10/17 at 21:00; Status UNV Multivitamins/ Calcium (Thera-M Plus) 1 tab DAILY PO Last administered on 09:01; Start 02/10/17 at 09:00 Lorazepam (Ativan) 0.25 mg PRN Q4HRS PRN PO ANXIETY / AGITATION Last administered on 02/11/17 15:05; Start 02/09/17 at 23:30 Ketorolac Tromethamine (Toradol) 15 mg PRN Q6HRS PRN IV PAIN Last administered on 02/10/17 12:19; Start 02/09/17 at 23:30; Stop 02/11/17 at 07:01; Status DC Carisoprodol (Soma) 350 mg BID PO Last administered on 02/10/17 07:29; Start 02/09/17 at 23:30; Stop 02/10/17 at 08:12; Status DC Pregabalin (Lyrica) 75 mg TID PO Last administered on 02/09/17 23:42; Start at 23:30; Stop 02/10/17 at 07:54; Status DC Simvastatin (Zocor) 40 mg QHS PO Last administered on 02/10/17 20:46; Start at 23:30; Status Future Hold Zolpidem Tartrate (Ambien) 10 mg QHS PO Last administered on 02/11/17 20:50; Start 02/09/17 at 23:30 Non-Formulary Medication 1 cap HS PO ; Start 02/09/17 at 23:00; Status UNV Gabapentin (Neurontin) 600 mg HS PO Last administered on 02/11/17 20:50; Start 02/09/17 at 23:30 Amlodipine Besylate (Norvasc) 10 mg HS PO Last administered on 02/11/17 20:51 ; Start 02/09/17 at 23:30 Lisinopril (Prinivil) 40 mg HS PO Last administered on 02/11/17 20:50; Start 02/09/17 at 23:30 Clonidine HCl (Catapres Tts-1) 1 patch WEEKLY TD Last administered on 09:05; Start 02/10/17 at 09:00 Pregabalin (Lyrica) 75 mg TID@0300,1100,1900 PO Last administered on 02/12/17 10:48; Start 02/10/17 at 11:00 Carisoprodol (Soma) 350 mg BID@0300,2300 PO ; Start 02/10/17 at 23:00; Stop 05/19 at 23:00; Status DC Carisoprodol (Soma) 350 mg DAILY@0300 PO Last administered on 02/12/17 03:10; Start 02/11/17 at 03:00 Carisoprodol (Soma) 175 mg DAILY@2300 PO Last administered on 02/11/17 23:24; Start 02/10/17 at 23:00 Ketorolac Tromethamine (Toradol) 30 mg PRN Q6HRS PRN IV PAIN Last administered on 02/11/17 05:50; Start 02/10/17 at 12:00; Stop 02/11/17 at 07:01; Status DC Hydralazine HCl (Apresoline) 10 mg PRN Q4HRS PRN IV ELEVATED BP, SEE COMMENTS Last administered on 02/11/17 04:12; Start 02/10/17 at 19:15 Enoxaparin Sodium (Lovenox) 40 mg Q24H SQ Last administered on 02/12/17 06:14 ; Start 02/11/17 at 07:00 Acetaminophen (Tylenol) 1,000 mg PRN Q6HRS PRN PO PAIN Last administered on 06:13; Start 02/11/17 at 07:00 Polyethylene Glycol (miraLAX) 17 gm PRN DAILY PRN PO CONSTIPATION; Start at 07:30 Docusate Sodium (Colace) 100 mg DAILY PO Last administered on 02/12/17 09:01; Start 02/11/17 at 09:00 Carvedilol (Coreg) 6.25 mg BIDWMEALS PO ; Start 02/12/17 at 17:00 Furosemide (Lasix) 40 mg BID92 PO ; Start 02/13/17 at 09:00 Potassium Chloride (Klor-Con) 10 meq DAILYWBKFT PO ; Start 02/13/17 at 08:00 Spironolactone (Aldactone) 25 mg DAILY PO Last administered on 02/12/17t 15:28 ; Start 02/12/17 at 15:10 Active Scripts Active Reported Lyrica (Pregabalin) 75 Mg Capsule 75 Mg PO TID Garlic 1 Each Tablet 1 Each PO HS Simvastatin 40 Mg Tablet 1 Tab PO QHS Soma (Carisoprodol) 350 Mg Tablet 1 Tab PO QHS Ambien (Zolpidem Tartrate) 10 Mg Tablet 1 Tab PO QHS Gabapentin 600 Mg Tablet 600 Mg PO HS Amlodipine-Benazepril 10-40 Mg (Amlodipine Besylate/Benazepril) 1 Each Capsule 1 Cap PO HS Ranitidine Hcl 300 Mg Capsule 1 Cap PO DAILYWSUP Potassium Chloride 10 Meq Tablet.er 20 Meq PO DAILYBFRSUP Aspirin 81 Mg Tab.chew 81 Mg PO BID Multi-Day Vitamins (Multivitamin) 1 Each Tablet 1 Tab PO DAILY Ascorbic Acid 500 Mg Tablet 500 Mg PO DAILY Advair 100-50 Diskus (Fluticasone/Salmeterol) 1 Each Disk.w.dev 1 Puff IH DAILY Klor-Con M20 (Potassium Chloride) 20 Meq Tab.er.prt 2 Tab PO DAILY Kristalose (Lactulose) 20 Gm Packet 60 Gm PO DAILY Dexilant (Dexlansoprazole) 60 Mg Cap.drRadhamp 1 Cap PO DAILY Bystolic (Nebivolol Hcl) 20 Mg Tablet 1 Tab PO DAILY Furosemide 80 Mg Tablet 1 Tab PO BID Metformin Hcl 500 Mg Tablet 1 Tab PO DAILY Levothyroxine Sodium 200 Mcg Tablet 1 Tab PO DAILY Levothyroxine Sodium 50 Mcg Tablet 1 Tab PO DAILY Invokana (Canagliflozin) 300 Mg Tablet 300 Mg PO Actos (Pioglitazone Hcl) 30 Mg Tablet 1 Tab PO DAILY [place] 3-6-9 1,200 mg Softgel (Fish Oil/Borage/Flax/Om3,6,9#1) 1,200 Mg Capsule 4 Tab PO DAILY Soma (Carisoprodol) 350 Mg Tablet 1 Tab PO BID Vitals/I & O Vital Sign - Last 24 Hours 02/11/17 02/11/17 02/11/17 02/11/17 19:44 19:49 20:00 20:31 Temp 98.0 Pulse 62 63 Resp 20 20 B/P (MAP) 215/85 (128) 223/86 (131) O2 Delivery Room Air 02/11/17 02/11/17 02/11/17 02/11/17 20:50 20:51 20:51 21:45 Pulse 62 62 62 65 Resp 20 B/P (MAP) 215/85 215/85 215/85 186/65 (105) 02/11/17 02/11/17 02/12/17 02/12/17 22:31 23:31 00:31 01:53 Pulse 65 65 59 65 Resp 19 19 19 20 B/P (MAP) 198/73 (114) 165/65 (98) 205/76 (119) 153/74 (100) 02/12/17 02/12/17 02/12/17 02/12/17 03:31 05:18 06:33 08:00 Temp 98.2 Pulse 64 64 69 Resp 20 25 27 B/P (MAP) 201/72 (115) 211/78 (122) 195/66 (109) O2 Delivery Room Air Room Air Room Air 02/12/17 02/12/17 02/12/17 02/12/17 09:03 09:30 10:07 11:00 Temp 98.5 Pulse 68 64 64 Resp 20 20 B/P (MAP) 174/72 179/63 (101) 218/63 (114) Pulse Ox 96 96 O2 Delivery Room Air Room Air 02/12/17 02/12/17 13:29 13:34 Pulse 67 64 Resp 20 B/P (MAP) 223/116 (151) 223/116 Pulse Ox 96 O2 Delivery Room Air Intake and Output 02/11/17 02/11/17 02/12/17 15:00 23:00 07:00 Intake Total 1020 ml 240 ml Output Total 3801 ml Balance -2781 ml 240 ml WES HUANG MD Feb 12, 2017 15:39
[2017-02-12] MEDS: FAMOTIDINE 20 MG TABLET PO SCH (17:14)
[2017-02-12] MEDS: POTASSIUM CHLORIDE 10 MEQ TABLET.ER. PO SCH (17:14)
[2017-02-12] MEDS: CARVEDILOL 6.25 MG TABLET PO SCH (17:19)
[2017-02-12] MEDS: MORPHINE ER 60 MG TABLET.ER PO SCH (20:13)
[2017-02-12] MEDS: GABAPENTIN 300 MG CAPSULE. PO SCH (20:13)
[2017-02-12] MEDS: ZOLPIDEM 10 MG TABLET. PO SCH (20:13)
[2017-02-12] MEDS: amLODIPine BESYLATE 10 MG TABLET PO SCH (20:14)
[2017-02-12] MEDS: LISINOPRIL 20 MG TABLET PO SCH (20:14)
[2017-02-13] MEDS: PREGABALIN 75 MG CAPSULE PO SCH ×3 (02:20→21:20)
[2017-02-13] MEDS: CARISOPRODOL 350 MG TABLET PO SCH ×2 (02:20→22:43)
[2017-02-13 02:27] VITALS: BP 191/84
[2017-02-13] MEDS: cloNIDine HCL 0.1 MG TABLET PO PRN (02:31)
[2017-02-13] MEDS: ENOXAPARIN 40 MG/0.4 ML DISP.SYRIN. SQ SCH ×2 (05:36→08:41)
[2017-02-13] MEDS: LEVOTHYROXINE 50 MCG TABLET PO SCH (05:36)
[2017-02-13 05:59] VITALS: BP 160/82
[2017-02-13 06:33] LABS: CALCIUM 8.8 mg/dL (8.5-10.1); CREATININE 1.2 mg/dL (0.6-1.0); GFR 44.8; POTASSIUM 3.5 mmol/L (3.5-5.1)
[2017-02-13] MEDS: FUROSEMIDE 40 MG TABLET PO SCH ×2 (08:41→14:03)
[2017-02-13] MEDS: DOCUSATE SODIUM 100 MG CAPSULE PO SCH ×2 (08:41→21:20)
[2017-02-13] MEDS: ASCORBIC ACID 500 MG TABLET PO SCH (08:41)
[2017-02-13] MEDS: ASPIRIN 81 MG TAB.CHEW PO SCH ×2 (08:41→21:20)
[2017-02-13] MEDS: LACTULOSE 20 GM/30 ML SOLUTION. PO SCH (08:41)
[2017-02-13] MEDS: PIOGLITAZONE 15 MG TABLET. PO SCH (08:41)
[2017-02-13] MEDS: MORPHINE ER 60 MG TABLET.ER PO SCH ×2 (08:42→21:19)
[2017-02-13] MEDS: POTASSIUM CHLORIDE 10 MEQ TABLET.ER. PO SCH ×2 (08:42→16:46)
[2017-02-13] MEDS: metFORMIN 500 MG TABLET PO SCH (08:42)
[2017-02-13] MEDS: MULTIVITAMIN with MINERAL TABLET. PO SCH (08:42)
[2017-02-13] MEDS: SPIRONOLACTONE 25 MG TABLET PO SCH (08:42)
[2017-02-13] MEDS: OMEGA-3 FATTY ACIDS/FISH OIL 1,000 MG CAPSULE. PO SCH (08:42)
[2017-02-13] MEDS: PANTOPRAZOLE 40 MG TABLET. PO SCH (08:42)
[2017-02-13] MEDS: CARVEDILOL 6.25 MG TABLET PO SCH ×2 (08:42→16:46)
[2017-02-13] MEDS ORDERED: cloNIDine TTS-2 1 PATCH PATCH TD SCH (09:00)
[2017-02-13] MEDS: hydrALAZINE 25 MG TABLET PO SCH ×2 (09:36→21:20)
[2017-02-13 10:34] VITALS: BP 171/72
--- NOTE | 2017-02-13 10:43 | PDOC2 ---
JEANETTE BOTELLO DIRECTOR OF LAND ACQUISITION 02/13/17 1043: CONSULT Date of Admission DATE: 02/13/17 TIME: 10:18 Reason for Consult: accelerated hypertension History of Present Illness Ms Gonzalez is a 66-year-old female who was admitted for treatment of narcotic withdrawal. She has a longstanding history of chronic pain including fibromyalgia and knee pain and had been on methadone. She has not had any methadone since last week. She reports that she wanted to be off narcotics all together but withdrawal symptoms were too much so she sought care. Her blood pressure has been very elevated since admission so consult was called. She reports normally her blood pressure is controlled but she is on multiple medications. She denies any chest pain, congestive symptoms or dyspnea but she reports a very reduced activity level due to her chronic pain. She denies palpitations, lightheadedness or syncope. Past Medical History Fatigue, generalized weakness, medication withdrawal, low lumbar back pain, scoliosis, osteoarthritis, chronic pain, chronic use of narcotics, morbid obesity, fibromyalgia, cellulitis of the right leg, also poor dentition and has a cracked tooth in the lower left. Diabetes, breast cancer, thyroid cancer stage 1, and hypothyroidism. Past Surgical History Total thyroidectomy, tubal ligation, lumpectomy right breast, hysterectomy, knee replacement, carpal tunnel release, and cataract removal. Family History Mother of heart disease and CVA. Father of heart disease. Paternal grandmother of heart disease and CVA. Social History Non smoker, no significant ETOH, no illicit drugs. She is pretty much limited to her apartment. Drives occasionally. Used to go to [employer], but has not been to [employer] in a long time. Has one brother that looks in on her and a daughter that helps with her care. She is . Current Medications Current Medications Clonidine HCl (Catapres) 0.1 mg PRN Q4HRS PRN PO SBP > 160 OR DBP > 90 Last administered on 02/13/17t 02:31; Start 02/09/17 at 17:30; Stop 02/13/17 at 09:01 ; Status DC Diphenhydramine HCl (Benadryl) 25 mg PRN Q6HRS PRN IV ITCHING; Start 02/09/17 at 17:30; Stop 02/09/17 at 18:40; Status DC Morphine Sulfate (Ms Contin) 60 mg BID PO Last administered on 02/09/17 20:39 ; Start 02/09/17 at 19:35; Stop 02/10/17 at 08:51; Status DC Diphenhydramine HCl (Benadryl) 25 mg PRN Q6HRS PRN PO ITCHING Last administered on 02/11/17 02:49; Start 02/09/17 at 18:45 Aspirin (Children'S Aspirin) 81 mg BID PO Last administered on 02/13/17 08:41 ; Start 02/10/17 at 09:00 Carisoprodol (Soma) 350 mg BID PO ; Start 02/10/17 at 09:00; Stop 02/10/17 at 09 :00; Status DC Carisoprodol (Soma) 350 mg QHS PO ; Start 02/10/17 at 21:00; Status Cancel Furosemide (Lasix) 80 mg BID92 PO Last administered on 02/12/17 13:34; Start 02/10/17 at 09:00; Stop 02/12/17 at 15:00; Status DC Levothyroxine Sodium (Synthroid) 50 mcg DAILY06 PO Last administered on 05:36; Start 02/10/17 at 06:00 Metformin HCl (Glucophage) 500 mg DAILYWBKFT PO Last administered on 02/13/17 08:42; Start 02/10/17 at 08:00 Potassium Chloride (Klor-Con) 40 meq DAILY PO Last administered on 02/12/17 09 :01; Start 02/10/17 at 09:00; Stop 02/12/17 at 15:00; Status DC Pregabalin (Lyrica) 75 mg TID PO ; Start 02/10/17 at 09:00; Stop 02/10/17 at 09: 00; Status DC Simvastatin (Zocor) 40 mg QHS PO ; Start 02/10/17 at 21:00; Stop 02/10/17 at 21: 00; Status DC Zolpidem Tartrate (Ambien) 10 mg QHS PO ; Start 02/10/17 at 21:00; Stop at 21:00; Status DC Non-Formulary Medication 1 cap HS PO ; Start 02/10/17 at 21:00; Stop 02/10/17 at 21:00; Status DC Pantoprazole Sodium (Protonix) 40 mg DAILYAC PO Last administered on 02/13/17 08:42; Start 02/10/17 at 07:30 Non-Formulary Medication 1 puff DAILY IH ; Start 02/10/17 at 09:00; Status UNV Non-Formulary Medication 600 mg HS PO ; Start 02/10/17 at 21:00; Stop 02/10/17 at 21:00; Status DC Lactulose 60 gm DAILY PO Last administered on 02/13/17 08:41; Start 02/10/17 at 09:00 Non-Formulary Medication 1 tab DAILY PO ; Start 02/10/17 at 09:00; Stop at 09:00; Status DC Metoprolol Tartrate (Lopressor) 50 mg BID PO Last administered on 02/12/17 09: 03; Start 02/10/17 at 09:00; Stop 02/12/17 at 14:58; Status DC Pioglitazone HCl (Actos) 30 mg DAILY PO Last administered on 02/13/17 08:41; Start 02/10/17 at 09:00 Potassium Chloride (Klor-Con) 20 meq DAILYBFRSUP PO Last administered on 17:14; Start 02/10/17 at 17:00 Famotidine (Pepcid) 40 mg DAILYWSUP PO Last administered on 02/12/17 17:14; Start 02/10/17 at 17:00 Ascorbic Acid (Vitamin C) 500 mg DAILY PO Last administered on 02/13/17 08:41 ; Start 02/10/17 at 09:00 Fish Oil (Fish Oil) 4,000 mg DAILY PO Last administered on 02/13/17 08:42; Start 02/10/17 at 09:00 Non-Formulary Medication 1 each HS PO ; Start 02/10/17 at 21:00; Status UNV Multivitamins/ Calcium (Thera-M Plus) 1 tab DAILY PO Last administered on 08:42; Start 02/10/17 at 09:00 Lorazepam (Ativan) 0.25 mg PRN Q4HRS PRN PO ANXIETY / AGITATION Last administered on 02/11/17 15:05; Start 02/09/17 at 23:30 Ketorolac Tromethamine (Toradol) 15 mg PRN Q6HRS PRN IV PAIN Last administered on 02/10/17 12:19; Start 02/09/17 at 23:30; Stop 02/11/17 at 07:01; Status DC Carisoprodol (Soma) 350 mg BID PO Last administered on 02/10/17 07:29; Start 02/09/17 at 23:30; Stop 02/10/17 at 08:12; Status DC Pregabalin (Lyrica) 75 mg TID PO Last administered on 02/09/17 23:42; Start at 23:30; Stop 02/10/17 at 07:54; Status DC Simvastatin (Zocor) 40 mg QHS PO Last administered on 02/10/17 20:46; Start at 23:30; Status Future Hold Zolpidem Tartrate (Ambien) 10 mg QHS PO Last administered on 02/12/17 20:13; Start 02/09/17 at 23:30 Non-Formulary Medication 1 cap HS PO ; Start 02/09/17 at 23:00; Status UNV Gabapentin (Neurontin) 600 mg HS PO Last administered on 02/12/17 20:13; Start 02/09/17 at 23:30 Amlodipine Besylate (Norvasc) 10 mg HS PO Last administered on 02/12/17 20:14 ; Start 02/09/17 at 23:30 Lisinopril (Prinivil) 40 mg HS PO Last administered on 02/12/17 20:14; Start 02/09/17 at 23:30 Clonidine HCl (Catapres Tts-1) 1 patch WEEKLY TD Last administered on 09:05; Start 02/10/17 at 09:00 Pregabalin (Lyrica) 75 mg TID@0300,1100,1900 PO Last administered on 02/13/17 02:20; Start 02/10/17 at 11:00 Carisoprodol (Soma) 350 mg BID@0300,2300 PO ; Start 02/10/17 at 23:00; Stop 05/19 at 23:00; Status DC Carisoprodol (Soma) 350 mg DAILY@0300 PO Last administered on 02/13/17 02:20; Start 02/11/17 at 03:00 Carisoprodol (Soma) 175 mg DAILY@2300 PO Last administered on 02/12/17 22:22; Start 02/10/17 at 23:00 Ketorolac Tromethamine (Toradol) 30 mg PRN Q6HRS PRN IV PAIN Last administered on 02/11/17 05:50; Start 02/10/17 at 12:00; Stop 02/11/17 at 07:01; Status DC Hydralazine HCl (Apresoline) 10 mg PRN Q4HRS PRN IV ELEVATED BP, SEE COMMENTS Last administered on 02/11/17 04:12; Start 02/10/17 at 19:15 Enoxaparin Sodium (Lovenox) 40 mg Q24H SQ Last administered on 02/13/17 08:41 ; Start 02/11/17 at 07:00 Acetaminophen (Tylenol) 1,000 mg PRN Q6HRS PRN PO PAIN Last administered on 06:13; Start 02/11/17 at 07:00 Polyethylene Glycol (miraLAX) 17 gm PRN DAILY PRN PO CONSTIPATION; Start at 07:30 Docusate Sodium (Colace) 100 mg DAILY PO Last administered on 02/13/17 08:41; Start 02/11/17 at 09:00 Carvedilol (Coreg) 6.25 mg BIDWMEALS PO Last administered on 02/13/17 08:42; Start 02/12/17 at 17:00 Furosemide (Lasix) 40 mg BID92 PO Last administered on 02/13/17 08:41; Start 02/13/17 at 09:00 Potassium Chloride (Klor-Con) 10 meq DAILYWBKFT PO Last administered on 08:42; Start 02/13/17 at 08:00 Spironolactone (Aldactone) 25 mg DAILY PO Last administered on 02/13/17 08:42 ; Start 02/12/17 at 15:10 Morphine Sulfate (Ms Contin) 60 mg BID PO Last administered on 02/13/17 08:42 ; Start 02/12/17 at 21:00 Clonidine HCl (Catapres Tts-2) 1 patch WEEKLY TD Last administered on 09:37; Start 02/13/17 at 09:00 Hydralazine HCl (Apresoline) 25 mg BID PO Last administered on 02/13/17 09:36 ; Start 02/13/17 at 09:00 Active Scripts Active Reported Lyrica (Pregabalin) 75 Mg Capsule 75 Mg PO TID Garlic 1 Each Tablet 1 Each PO HS Simvastatin 40 Mg Tablet 1 Tab PO QHS Soma (Carisoprodol) 350 Mg Tablet 1 Tab PO QHS Ambien (Zolpidem Tartrate) 10 Mg Tablet 1 Tab PO QHS Gabapentin 600 Mg Tablet 600 Mg PO HS Amlodipine-Benazepril 10-40 Mg (Amlodipine Besylate/Benazepril) 1 Each Capsule 1 Cap PO HS Ranitidine Hcl 300 Mg Capsule 1 Cap PO DAILYWSUP Potassium Chloride 10 Meq Tablet.er 20 Meq PO DAILYBFRSUP Aspirin 81 Mg Tab.chew 81 Mg PO BID Multi-Day Vitamins (Multivitamin) 1 Each Tablet 1 Tab PO DAILY Ascorbic Acid 500 Mg Tablet 500 Mg PO DAILY Advair 100-50 Diskus (Fluticasone/Salmeterol) 1 Each Disk.w.dev 1 Puff IH DAILY Klor-Con M20 (Potassium Chloride) 20 Meq Tab.er.prt 2 Tab PO DAILY Kristalose (Lactulose) 20 Gm Packet 60 Gm PO DAILY Dexilant (Dexlansoprazole) 60 Mg Cap.dr.mp 1 Cap PO DAILY Bystolic (Nebivolol Hcl) 20 Mg Tablet 1 Tab PO DAILY Furosemide 80 Mg Tablet 1 Tab PO BID Metformin Hcl 500 Mg Tablet 1 Tab PO DAILY Levothyroxine Sodium 200 Mcg Tablet 1 Tab PO DAILY Levothyroxine Sodium 50 Mcg Tablet 1 Tab PO DAILY Invokana (Canagliflozin) 300 Mg Tablet 300 Mg PO Actos (Pioglitazone Hcl) 30 Mg Tablet 1 Tab PO DAILY Acworth 3-6-9 1,200 mg Softgel (Fish Oil/Borage/Flax/Om3,6,9#1) 1,200 Mg Capsule 4 Tab PO DAILY Soma (Carisoprodol) 350 Mg Tablet 1 Tab PO BID Allergies: Coded Allergies: Penicillins (Verified Allergy, Severe, 02/09/17) Sulfa (Sulfonamide Antibiotics) (Verified Allergy, Severe, 02/09/17) cephalexin (Verified Allergy, Severe, 02/09/17) codeine (Verified Allergy, Severe, 02/09/17) levofloxacin (Verified Allergy, Severe, 02/09/17) omeprazole (Verified Allergy, Severe, 02/09/17) valsartan (Verified Allergy, Severe, 02/09/17) Review of System as per HPI General: YES: Fatigue, Malaise PSYCHOLOGICAL ROS: YES: Depression Eyes: Yes: Blurry vision HEENT: YES: Heacaches Cardiovascular: yes: Edema Musculoskeletal: YES: Joint Pain, Joint Stiffness, Muscle Pain Skin: YES: Other (cellulitis) General: Alert, Oriented X3, Cooperative, No acute distress HEENT: Atraumatic, EOMI, Mucous membr. moist/pink Lungs: Clear to auscultation, Normal air movement Heart: Regular rate, Normal S1, Normal S2 Abdomen: Normal bowel sounds, Soft, No tenderness, Other (obese) Extremities: No cyanosis, Normal pulses, Other (trace edema, bilateral venous stasis changes) Neuro: Normal speech, Strength at 5/5 X4 ext Psych/Mental Status: Mental status NL, Mood NL VITALS Vital Signs Date Time Temp Pulse Resp B/P (MAP) Pulse Ox O2 Delivery O2 Flow Rate FiO2 02/13/17 09:36 74 160/82 02/13/17 08:00 Room Air 02/13/17 05:59 97.9 22 94 Labs Laboratory Tests Test 02/11/17 21:25 02/13/17 06:01 Glucose (Fingerstick) 114 mg/dL (70-99) Sodium Level 143 mmol/L (136-145) Potassium Level 3.5 mmol/L (3.5-5.1) Chloride Level 104 mmol/L (98-107) Carbon Dioxide Level 31 mmol/L (21-32) Anion Gap 8 (6-14) Blood Urea Nitrogen 17 mg/dL (7-20) Creatinine 1.2 mg/dL (0.6-1.0) Estimated GFR (Cockcroft-Gault) 44.8 Glucose Level 99 mg/dL (70-99) Calcium Level 8.8 mg/dL (8.5-10.1) Assessment/Plan 1. accelerated hypertension on multiple medications 2. chronic pain syndrome with acute narcotic withdrawal 3. diabetes mellitus 4. hypokalemia 5. hypothyroidism 6. venous insufficiency Accelerated hypertension likely exacerbated by narcotic withdrawal. On multiple antihypertensives. Blood pressure a little improved today after resuming MS contin last pm. Suggest echocardiogram, change Catapres to TTS II and add scheduled hydralazine. Avoid PRN clonidine due to rebound effect if possible. Also suggest pain management consult if possible otherwise outpatient referral. Hypokalemia improved with decrease lasix and addition of aldactone. Renal arterial duplex as she is uncontrolled on more than 3 medications. Mgmt of diabetes mellitus per PCP. Could consider outpatient eval for venous reflux. Problems: KELY LEON MD 02/14/17 1315: CONSULT Allergies: Coded Allergies: Penicillins (Verified Allergy, Severe, 02/09/17) Sulfa (Sulfonamide Antibiotics) (Verified Allergy, Severe, 02/09/17) cephalexin (Verified Allergy, Severe, 02/09/17) codeine (Verified Allergy, Severe, 02/09/17) levofloxacin (Verified Allergy, Severe, 02/09/17) omeprazole (Verified Allergy, Severe, 02/09/17) valsartan (Verified Allergy, Severe, 02/09/17) Assessment/Plan Late entry for 02/13/2017. Pt. seen and examined. Agree with above [facility] note. Echo and renal artery duplex wnl. Supportive care. Thanks for consult. Ok with SBP < 180 until acute issues resolve. Problems: JEANETTE BOTELLO APRN Feb 13, 2017 10:43 KELY LEON MD Feb 14, 2017 13:15
--- NOTE | 2017-02-13 15:40 | CARD ---
APPROVED REPORT EXAM: Two-dimensional and M-mode echocardiogram with Doppler and color Doppler. Other Information Quality : Technically Limited Rhythm : NSRTechnically limited study due to body habitus. INDICATION Hypertension/HCVD 2D DIMENSIONS Left Atrium(2D)3.6 (1.6-4.0cm)IVSd1.2 (0.7-1.1cm) Aortic Root(2D)2.5 (2.0-3.7cm)LVDd4.8 (3.9-5.9cm) LVOT Diameter2.0 (1.8-2.4cm)PWd1.2 (0.7-1.1cm) LVDs3.0 (2.5-4.0cm)FS (%) 28.4 % SV73.9 mlLVEF(%)58.6 (>50%) M-Mode DIMENSIONS Left Atrium(MM)3.96 (2.5-4.0cm)Aortic Root2.77 (2.2-3.7cm) Aortic Valve AoV Peak Martínez.178.4cm/sAoV VTI42.9cm AO Peak GR.12.7mmHgLVOT Peak Martínez.121.1cm/s LVOT VTI 21.32cmAO Mean GR.8mmHg KWESI (VMAX)2.05cm2 Mitral Valve MV E Uorputij73.5cm/sMV E Peak Gr.3mmHg MV DECEL [id number] A Swtnrauy84.4cm/s MV E Mean Gr.1mmHgMV [id number] E/A Ratio1.1MV A [id number] MVA (PHT)2.47cm2 Tricuspid Valve TR P. Sqsbeppt145qh/sRAP [id number] TR Peak Gr.24ntIcIJVN51dtQa LEFT VENTRICLE The left ventricle is normal size. There is borderline concentric left ventricular hypertrophy. Left ventricle systolic function is normal. The Ejection Fraction is 55-60%. There is normal LV segmental wall motion. The left ventricular diastolic function and filling is normal for age. There is no ventr icular septal defect visualized. RIGHT VENTRICLE The right ventricle is normal size. The right ventricular systolic function is normal. ATRIA The left atrium size is normal. The right atrium size is normal. The interatrial septum is intact wit h no evidence for an atrial septal defect or patent foramen ovale as noted on 2-D or Doppler imaging. AORTIC VALVE The aortic valve is not well visualized. Doppler and Color Flow revealed no significant aortic regurg itation. There is no significant aortic valvular stenosis. MITRAL VALVE Mitral annular calcification is mild. The mitral valve leaflets are calcified. There is no mitral sonja ve stenosis. Doppler and Color Flow revealed no mitral valve regurgitation noted. TRICUSPID VALVE The tricuspid valve is normal in structure and function. Doppler and Color Flow revealed mild tricusp id regurgitation. The PA pressure was estimated at 39 mmHg. There is no tricuspid valve stenosis. PULMONIC VALVE The pulmonic valve is not well visualized. Doppler and Color Flow revealed no pulmonic valvular regur gitation. There is no pulmonic valvular stenosis. GREAT VESSELS The aortic root is normal in size. Pulmonary veins not recorded. The IVC is normal in size and collap ses >50% with inspiration. PERICARDIAL EFFUSION There is no evidence of significant pericardial effusion. Critical Notification Critical Value: No <Conclusion> Left ventricle systolic function is normal. The Ejection Fraction is 55-60%. There is normal LV segmental wall motion. Doppler and Color Flow revealed mild tricuspid regurgitation. The PA pressure was estimated at 39 mmHg. There is no evidence of significant pericardial effusion.
[2017-02-13 15:45] VITALS: BP 151/78
[2017-02-13] MEDS: FAMOTIDINE 20 MG TABLET PO SCH (16:46)
[2017-02-13 19:30] VITALS: BP 139/86
[2017-02-13] MEDS: ENOXAPARIN ** NOTE DOSE ** SYRINGE SQ SCH (21:17)
[2017-02-13] MEDS: GABAPENTIN 300 MG CAPSULE. PO SCH (21:17)
[2017-02-13] MEDS: LISINOPRIL 20 MG TABLET PO SCH (21:18)
[2017-02-13] MEDS: amLODIPine BESYLATE 10 MG TABLET PO SCH (21:19)
[2017-02-13] MEDS: ZOLPIDEM 10 MG TABLET. PO SCH (21:20)
[2017-02-13 22:25] VITALS: BP 135/79
[2017-02-14] MEDS: PREGABALIN 75 MG CAPSULE PO SCH ×2 (02:59→11:49)
[2017-02-14] MEDS: CARISOPRODOL 350 MG TABLET PO SCH (02:59)
--- NOTE | 2017-02-14 04:38 | PN ---
DATE: SUBJECTIVE: The patient is a 66-year-old female patient, who was admitted on 02/09/2017 with a complaint of severe intractable pain, acute on chronic, as the patient basically would like to go off. She was on methadone that could not be authorized by the insurance, so her primary care physician started her on Embeda at 60 mg twice a day and was increased to 80 mg b.i.d., and this obviously could not be authorized, so she was started yesterday on MS Contin 60 mg twice a day and her pain seems to be much better controlled; however, the withdrawal caused severe accelerated hypertension and has been on multiple antihypertensive medications. She was seen in consultation by the Cardiology team and she is now on multiple antihypertensive medications, although her blood pressure is still suboptimally controlled. She is also known to have fibromyalgia, headache, morbid obesity and obstructive sleep apnea. She also has diabetes and hypothyroidism. When I saw her this afternoon, she was resting slightly propped up in bed, in no apparent distress. Continues somewhat lethargic, but arousable. She does answer questions appropriately. She does not seem to be in respiratory distress. She was slightly pale, but no jaundice, cyanosis, or thyromegaly. No jugular venous distention. No limb edema. PHYSICAL EXAMINATION: VITAL SIGNS: Her heart rate was 64, blood pressure 171/72, temperature was 98.3, respiratory rate 20, and oxygen saturation was 93% on room air. HEAD, EYES, EARS, NOSE AND THROAT: Showed normocephalic, atraumatic. NECK: Supple. HEART: Showed normal first and second sounds. No gallop, rub or murmur. CHEST: Clear to auscultation. No crepitation or rhonchi. ABDOMEN: Distended, soft, nontender. No guarding or rigidity. No organomegaly. Hernial orifices intact. Bowel sounds normal. NEUROLOGIC: She was awake, alert, though somewhat lethargic. All her cranial nerves are intact. She moves extremities without difficulty, although she is mostly bed bound. Her intake over the last 24 hours was 1260, output was 3800. LABORATORY DATA: Her lab work showed that her most recent CBC showed a white cell count 5100, hemoglobin 13.6, hematocrit 41, MCV 86 and platelet count of 125,000. Her serum sodium was 143, potassium 3.5, chloride 104, bicarbonate 31, anion gap of 8, BUN 17, creatinine 1.2, estimated GFR was 44 mL per minute. Her glucose was 99. Calcium was 8.8, magnesium 2.2. ASSESSMENT: 1. Severe intractable pain, acute on chronic, which she is now on MS Contin 60 mg p.o. b.i.d., seems to be much better controlled. 2. Fibromyalgia for which she is on pregabalin 75 mg 3 times a day. 3. Hypertension, accelerated. She is currently on hydralazine 25 mg p.o. b.i.d., clonidine patch TTS-2 once weekly. She is on furosemide 40 mg twice a day, carvedilol 6.25 mg twice a day, spironolactone 25 mg daily. 4. Headache, probably tension related 5. Morbid obesity and obstructive sleep apnea for which she is on BiPAP machine. 6. Type 2 diabetes mellitus, seems to be reasonably controlled. She is on metformin 500 mg with breakfast. 7. Hypothyroidism for which she is on levothyroxine, for which I will check also her thyroid function tests. 8. Hypokalemia, resolving. Her potassium went up from 3.2 to 3.5. PLAN: My plan is to repeat all her lab works including TSH and check her hemoglobin A1c. Continue with current medications. She would be seen by the automobile painter tomorrow. VIPUL SHERIDAN MD DR: YUDI/noemi JOB#: [id number] / [id number]
[2017-02-14 06:00] VITALS: BP 170/78
[2017-02-14] MEDS: LEVOTHYROXINE 50 MCG TABLET PO SCH (06:00)
[2017-02-14 06:36] LABS: BASO % 0 % (0-3); EOS # 0.2 x10^3/uL (0.0-0.7); EOS % 3 % (0-3); HEMATOCRIT 43.4 % (36.0-47.0); HEMOGLOBIN 14.3 g/dL (12.0-15.5); LYMPH % 51 % (24-48); MEAN CORPUSCULAR HEMOGLOBIN 28 pg (25-35); MEAN CORPUSCULAR HGB CONC 33 g/dL (31-37); MEAN CORPUSCULAR VOLUME 86 fL (79-100); MONO # 0.4 x10^3/uL (0.0-1.1); MONO % 7 % (0-9); NEUT # 2.3 x10^3uL (1.8-7.7); NEUT % 39 % (31-73); PLATELET COUNT 119 x10^3/uL (140-400); RED BLOOD COUNT 5.05 x10^6/uL (3.50-5.40); RED CELL DISTRIBUTION WIDTH 16.5 % (11.5-14.5); WHITE BLOOD COUNT 5.9 x10^3/uL (4.0-11.0)
[2017-02-14 06:53] LABS: ALBUMIN 3.4 g/dL (3.4-5.0); ALBUMIN/GLOBULIN RATIO 1.1 (1.0-1.7); C REACTIVE PROTEIN 1.2 mg/L (0-3.3); CALCIUM 8.3 mg/dL (8.5-10.1); CREATININE 1.5 mg/dL (0.6-1.0); GFR 34.6; POTASSIUM 3.8 mmol/L (3.5-5.1); TOTAL BILIRUBIN 0.9 mg/dL (0.2-1.0); TOTAL PROTEIN 6.6 g/dL (6.4-8.2)
[2017-02-14 07:47] LABS: SEDIMENTATION RATE 15 (0-25)
[2017-02-14] MEDS: PANTOPRAZOLE 40 MG TABLET. PO SCH (08:14)
[2017-02-14] MEDS: FUROSEMIDE 40 MG TABLET PO SCH ×2 (08:14→11:49)
[2017-02-14] MEDS: metFORMIN 500 MG TABLET PO SCH (08:14)
[2017-02-14] MEDS: DOCUSATE SODIUM 100 MG CAPSULE PO SCH (08:14)
[2017-02-14] MEDS: OMEGA-3 FATTY ACIDS/FISH OIL 1,000 MG CAPSULE. PO SCH (08:14)
[2017-02-14] MEDS: MORPHINE ER 60 MG TABLET.ER PO SCH (08:14)
[2017-02-14] MEDS: MULTIVITAMIN with MINERAL TABLET. PO SCH (08:14)
[2017-02-14] MEDS: PIOGLITAZONE 15 MG TABLET. PO SCH (08:14)
[2017-02-14] MEDS: hydrALAZINE 25 MG TABLET PO SCH (08:15)
[2017-02-14] MEDS: SPIRONOLACTONE 25 MG TABLET PO SCH (08:15)
[2017-02-14] MEDS: POTASSIUM CHLORIDE 10 MEQ TABLET.ER. PO SCH (08:15)
[2017-02-14] MEDS: CARVEDILOL 6.25 MG TABLET PO SCH (08:15)
[2017-02-14] MEDS: LACTULOSE 20 GM/30 ML SOLUTION. PO SCH (08:15)
[2017-02-14] MEDS: ASPIRIN 81 MG TAB.CHEW PO SCH (08:15)
[2017-02-14] MEDS: ASCORBIC ACID 500 MG TABLET PO SCH (08:15)
[2017-02-14] MEDS: ENOXAPARIN ** NOTE DOSE ** SYRINGE SQ SCH (08:16)
--- NOTE | 2017-02-14 09:38 | RAD ---
APPROVED REPORT Patient Location: IN-PATIENT Indications Uncontrolled HTN Fraga scale images of the right and left kidneys were significantly limited. Overall, spectral wavefor ms and color Doppler imaging was also significantly limited due to the patient's body habitus. Nonetheless, the above noted velocity measurements were made on limited imaging and this does not rev eal any evidence of significant renal artery stenosis. Renal Artery Doppler Right Renal Artery Left Renal Arter y Proximal 44.0/ cm/secProximal 69.0/ cm/sec Mid 30.0/ cm/secMid 57.0/ cm/sec Distal 25.0/ cm/secDistal 62.0/ cm/sec Renal/Aorta Ratio 0.00Renal/Aorta Ratio 0.00 Prox. Resistive Index .73Prox. Resistive Index .64 Mid Resistive Index .64Mid Resistive Index .64 Distal Resistive Index .64Distal Resistive Index .64 Aortic Duplex A/PTransverseLongitudinal Proximal Aorta 3.3cm Critical Notification Critical Value: No <Conclusion> No evidence of renal artery stenosis.
[2017-02-14 10:59] VITALS: BP 139/91
[2017-02-14 14:47] VITALS: BP 156/78
[2017-02-14] MEDS ORDERED: CARV6.252 PO (15:19)
[2017-02-14] MEDS ORDERED: DOCU100C28 PO (15:20)
[2017-02-14] MEDS ORDERED: LORA0.5T PO (15:27)
[2017-02-14] MEDS ORDERED: MORP60TA PO (15:28)
[2017-02-14] MEDS ORDERED: SPIR25TA3 PO (15:35)
[2017-02-14] MEDS ORDERED: CLON1PAT2 TD (15:37)
[2017-02-14] MEDS ORDERED: DIPH25CA58 PO (15:38)
[2017-02-14] MEDS ORDERED: HYDR-2868 PO (15:39)
--- NOTE | 2017-02-15 01:53 | DS ---
DATE OF DISCHARGE: 02/14/2017 HISTORY OF PRESENT ILLNESS: The patient is a 66-year-old female patient who was basically admitted with severe intractable pain acute on chronic, for which she is now on MS Contin 60 mg twice a day and seems to be much better controlled. She was admitted. She was unable to have refills on her pain medication and that resulted in severe narcotic withdrawal and accelerated hypertension and she was seen in consultation by the Cardiology team who made some adjustment to her blood pressure medication. She agreed also to go back on MS Contin. She was unable to have refill on her Embeda and as her pain is much better controlled as well as her blood pressure is much better controlled, the decision was made to discharge her home with home health. To continue physical and occupational therapy, she will follow with her primary care physician and also we made arrangements for her to follow up with pain management clinic. PHYSICAL EXAMINATION: GENERAL: When I saw her this afternoon, she looked well and was clearly in no apparent respiratory distress, pale. No jaundice, cyanosis or thyromegaly. No jugular venous distention. No lower limb edema. VITAL SIGNS: Her heart rate was 77, blood pressure 139/91, temperature was 98.4, respiratory rate 20, and oxygen saturation was 94% on room air. HEAD, EYES, EARS, NOSE, AND THROAT: Normocephalic, atraumatic. NECK: Supple. HEART: Showed normal first and second sounds. No gallop, rub, or murmur. CHEST: Clear to auscultation. No crepitation or rhonchi. ABDOMEN: Distended, soft, nontender. NEUROLOGIC: She is awake, alert, responding appropriately. Cranial nerves intact. EXTREMITIES: She moves extremities without difficulty. LABORATORY DATA: Showed white cell count of 5900, hemoglobin 14, hematocrit 44, MCV 86 and platelet count of 119,000. Chemistry showed a serum sodium of 141, potassium 3.8, chloride 102, bicarbonate 29, anion gap of 10, BUN 28, creatinine 1.5, estimated GFR was 34.6 mL per minute. Her glucose was 76. Calcium was 8.2, magnesium 2.2. Total bilirubin, AST, ALT, alkaline phosphatase were normal. C-reactive protein was only 1.2 mg/dL. estimated erythrocyte sedimentation rate was only 15 mm per hour. Her total protein was 6.6, albumin 3.4. DISCHARGE MEDICATIONS: The patient will be discharged home to continue on hydralazine 25 mg p.o. b.i.d., clonidine TTS-2 one patch once a week, furosemide 40 mg twice a day, potassium chloride 10 mEq once a day, morphine sulfate for MS Contin 60 mg twice a day, carvedilol 6.25 mg twice a day with meals, spironolactone 25 mg p.o. daily, Colace 100 mg p.o. daily, polyethylene glycol 17 grams daily, acetaminophen 1000 mg every 6 hours as needed, Soma 350 mg at 3 a.m. and Soma 175 mg at 11 p.m., hydralazine. She is on famotidine. In fact, she is on ranitidine 300 mg once a day, pregabalin 75 mg 3 times a day, multivitamin with calcium 1 tablet once a day, fish oil 4000 mg once a day, ascorbic acid 500 mg once a day, pioglitazone for Actos 30 mg once a day, lactulose 60 mg once a day, levothyroxine 50 mcg once a day. She is on a combination of benazepril and amlodipine 40/10 one tablet once a day, gabapentin 600 mg at bedtime, Ambien 10 mg at bedtime, lorazepam 0.5 mg every 6 hours. She is also on Simvastatin 40 mg at bedtime. FINAL DISCHARGE DIAGNOSES: Severe intractable pain, acute on chronic, responding well now to MS Contin 60 mg twice a day; fibromyalgia, on pregabalin 75 mg twice a day and Neurontin 600 mg at bedtime, accelerated hypertension for which now is on Coreg, spironolactone, and hydralazine as well as clonidine patch. Headache, resolved. Morbid obesity. Type 2 diabetes for which she is on metformin and pioglitazone, hypothyroidism for which she is on levothyroxine. The patient was advised to follow with her primary care physician as well as the pain management. Her kidney function has steadily risen probably because her blood pressure was high and now it is being well controlled. I advised her to follow with her primary care physician to make sure that her kidney function remains stable . VIPUL SHERIDAN MD DR: YUDI/noemi JOB#: [id number] / [id number]
[2017-02-15 05:09] LABS: HEMOGLOBIN A1C 5.9 % (4.8-5.6)
== END 2017-02-14 16:51 | disposition home health service (06) | DRG 897 ==
LOC: ICU 16:58 → 1 SOUTH 02-12 16:41
PROVIDERS: ADMIT Family Medicine; ATTEND Family Medicine
DX: F11.23 Opioid dependence with withdrawal (principal); Z68.43 Body mass index [BMI] 50.0-59.9, adult; I10 Essential (primary) hypertension; E66.01 Morbid (severe) obesity due to excess calories; E11.9 Type 2 diabetes mellitus without complications; E87.6 Hypokalemia; E89.0 Postprocedural hypothyroidism; G44.209 Tension-type headache, unspecified, not intractable; G47.33 Obstructive sleep apnea (adult) (pediatric); G89.4 Chronic pain syndrome; Z96.659 Presence of unspecified artificial knee joint; I87.2 Venous insufficiency (chronic) (peripheral); M41.9 Scoliosis, unspecified; M79.7 Fibromyalgia; Z79.84 Long term (current) use of oral hypoglycemic drugs; Z79.899 Other long term (current) drug therapy; Z82.3 Family history of stroke; Z82.49 Family history of ischemic heart disease and other diseases of the circulatory system; Z85.3 Personal history of malignant neoplasm of breast; Z85.850 Personal history of malignant neoplasm of thyroid; Z87.891 Personal history of nicotine dependence; Z91.81 History of falling; Z98.51 Tubal ligation status; Z88.1 Allergy status to other antibiotic agents; Z88.5 Allergy status to narcotic agent; Z88.0 Allergy status to penicillin; Z88.2 Allergy status to sulfonamides; Z88.8 Allergy status to other drugs, medicaments and biological substances; Z71.89 Other specified counseling
CPT/HCPCS: 36415; 76770; 80048; 80053; 80307; 81001; 82947; 83036; 83735; 84443; 85025; 85027; 85651; 86140; 87641; 93306; J0360; J1650; J1885; Q0163; G0479

== ENCOUNTER → 2017-06-01 | Outpatient (CLI) | payer MEDICARE, OTHER ==
[~2017-06-01] MED LIST: AMLO1CAP15 PO; ASCO500T3 PO; ASPI-630 PO; ATEN100T PO; CANA300T PO; CARI350T PO; CARV6.252 PO; CLON1PAT2 TD; DEXL60CA2 PO; DIPH25CA58 PO; DOCU100C28 PO; FISH12002 PO; FLUT1DIS IH; FURO80TA3 PO; GABA600T2 PO; GARL1TAB2 PO; HYDR-2868 PO; LACT20PA3 PO; LEVO200T5 PO; LEVO50TA5 PO; LORA0.5T PO; METF500T4 PO; MORP60TA PO; MULT-208 PO; NEBI20TA2 PO; PIOG30TA41 PO; POTA10TA10 PO; POTA20TA4 PO; PREG75CA PO; RANI300C PO; SIMV40TA3 PO; SPIR25TA3 PO; ZOLP10TA PO
--- NOTE | 2017-06-01 15:43 | RAD ---
CT MAXILLOFACIAL WITHOUT CONTRAST History: SINUSITIS Technique: Axial helical images of the face were obtained without contrast. Axial and coronal reconstruction was performed. Findings: Dental amalgam metallic streak artifact. Trace ethmoid sinus mucosal thickening. The paranasal sinuses are otherwise clear. The orbits are normal. The globes are intact. The nasal septum is mostly midline. The ostiomeatal complexes are narrow but patent. No acute osseous abnormality. Anterior positioning of the bilateral mandibular condyles in relation to the TMJ groove. IMPRESSION: 1. Trace ethmoid sinus mucosal thickening. The paranasal sinuses are otherwise clear. 2. Anterior positioning of the bilateral mandibular condyles in relation to the TMJ groove. Recommend correlation for TMJ symptoms. PQRS Compliance Statement: One or more of the following individualized dose reduction techniques were utilized for this examination: 1. Automated exposure control 2. Adjustment of the mA and/or kV according to patient size 3. Use of iterative reconstruction technique
== END | disposition home or self-care (01) ==
LOC: CT 14:28
PROVIDERS: ATTEND Physician Assistant
DX: J32.9 Chronic sinusitis, unspecified (principal); M26.69 Other specified disorders of temporomandibular joint
CPT/HCPCS: 70486

== ENCOUNTER → 2017-11-24 | Outpatient (CLI) | payer MEDICARE, OTHER ==
[~2017-11-24] MED LIST changes: -METF500T4 PO; +METF500T5 PO
--- NOTE | 2017-11-24 16:46 | RAD ---
PA and lateral chest radiograph. History: Shortness air for 3 days. Comparison: June 15, 2016. Findings: Cardiac silhouette is borderline enlarged. No pneumothorax identified. There are thought to be small bilateral pleural effusions, identified on lateral view. Right axillary clips are seen. Thoracic spine demonstrates multiple bridging disc osteophytes. No focal consolidation is appreciated. Impression: 1. Small bilateral pleural effusions. 2. No acute infiltrate is identified Electronically signed by: Jesus Manuel Stevens MD (11/24/2017 4:43 PM) [facility]
== END | disposition home or self-care (01) ==
LOC: RAD 16:23
PROVIDERS: ATTEND Physician Assistant
DX: J90 Pleural effusion, not elsewhere classified (principal); R06.00 Dyspnea, unspecified
CPT/HCPCS: 71046

== ENCOUNTER 2017-12-08 16:51 | Inpatient (IN) | payer MEDICARE, OTHER ==
[~2017-12-08] VITALS: Ht 160 cm; Wt 156.9 kg
[~2017-12-08 16:51] MED LIST changes: -AZIT250T PO; -BENZ100C PO; -IOHEXOL 300 MG/ML 75 ML VIAL. IV ONE
[2017-12-08 17:04] VITALS: BP 185/80
[2017-12-08] MEDS ORDERED: CONTRAST GIVEN MC PRN (17:15)
--- NOTE | 2017-12-08 17:28 | NUR ---
The patient, LIZZIE TRONCOSO, 67 y/o, F admitted by VIPUL SHERIDAN MD, was given written information regarding hospital policies, unit procedures and contact persons. Patient admitted to ICU 3 from radiology and arrived at approx. 1700 via EMS. Valuables were checked and left in room with patient. Vital signs assessed, MRSA swab performed, and patient oriented to the room.
[2017-12-08] MEDS ORDERED: ONDANSETRON PF 4 MG/2 ML VIAL. IV PRN (17:30)
[2017-12-08 17:43] LABS: BASO % 0 % (0-3); EOS # 0.2 x10^3/uL (0.0-0.7); EOS % 5 % (0-3); HEMATOCRIT 39.1 % (36.0-47.0); HEMOGLOBIN 12.8 g/dL (12.0-15.5); LYMPH % 47 % (24-48); MEAN CORPUSCULAR HEMOGLOBIN 29 pg (25-35); MEAN CORPUSCULAR HGB CONC 33 g/dL (31-37); MEAN CORPUSCULAR VOLUME 89 fL (79-100); MONO # 0.4 x10^3/uL (0.0-1.1); MONO % 9 % (0-9); NEUT # 1.7 x10^3uL (1.8-7.7); NEUT % 39 % (31-73); PLATELET COUNT 136 x10^3/uL (140-400); RED CELL DISTRIBUTION WIDTH 16.4 % (11.5-14.5); WHITE BLOOD COUNT 4.3 x10^3/uL (4.0-11.0)
[2017-12-08 17:47] LABS: ALBUMIN 3.2 g/dL (3.4-5.0); CALCIUM 8.6 mg/dL (8.5-10.1); CREATININE 1.4 mg/dL (0.6-1.0); GFR 37.4; MAGNESIUM 2.1 mg/dL (1.8-2.4); POTASSIUM 4.7 mmol/L (3.5-5.1); TOTAL BILIRUBIN 0.6 mg/dL (0.2-1.0); TOTAL PROTEIN 6.4 g/dL (6.4-8.2)
[2017-12-08] MEDS ORDERED: diphenhydrAMINE HCL 25 MG CAPSULE PO PRN (18:15)
[2017-12-08] MEDS ORDERED: ALBUTEROL SULFATE 2.5 MG/3 ML NEBU. NEB PRN (18:30)
--- NOTE | 2017-12-08 19:13 | HP ---
ADMIT DATE: 12/08/2017 HISTORY OF PRESENT ILLNESS: The patient is a 67-year-old female patient who was admitted directly from her primary care physician on account of increasing shortness of breath, cough with greenish sputum, chest pain, orthopnea and paroxysmal nocturnal dyspnea that has been going on for almost a month now. She was treated with a 10-day course of steroids as well as doxycycline without much improvement and her primary care physician was planning to do a CT angio of the chest to rule out pulmonary embolism; however, her creatinine was found to be high and therefore, she was admitted directly with a plan to do a VQ scan. PAST MEDICAL HISTORY: Significant for hypertension, hyperlipidemia, type 2 diabetes, congestive heart failure likely due to left ventricular diastolic dysfunction, morbid obesity with obstructive sleep apnea on CPAP, chronic kidney disease, hypothyroidism, fibromyalgia. PAST SURGICAL HISTORY: Significant for breast cancer status post lumpectomy x 2, left total knee arthroplasty, bilateral carpal tunnel release and bilateral cataract extraction, total abdominal hysterectomy and bilateral salpingo-oophorectomy, total thyroidectomy for thyroid cancer. She underwent esophagogastroduodenoscopy and colonoscopy. ALLERGIES: SHE IS ALLERGIC TO PENICILLIN AND SULFA DRUGS, CEPHALEXIN, CODEINE, LEVOFLOXACIN, OMEPRAZOLE, AND VALSARTAN. MEDICATIONS: She is currently on diphenhydramine 25 mg every 6 hours as needed, Soma 350 mg daily and Soma [id number] at bedtime, simvastatin 40 mg at bedtime, clonidine TTS 2 patch transdermal once a week, hydralazine 25 mg twice a day, carvedilol 6.25 mg twice a day, amlodipine/benazepril 1 capsule p.o. at bedtime, spironolactone 25 mg once a day, aspirin 81 mg twice a day, morphine sulfate extended release 60 mg twice a day, gabapentin 600 mg at bedtime, pregabalin 75 mg 3 times a day, lorazepam 0.5 mg every 4 hours, Ambien 10 mg at bedtime. She is on lactulose 60 grams p.o. daily, potassium chloride 20 mEq once a day, furosemide 40 mg twice a day, Advair Diskus 100/50 one puff twice a day, Colace 100 mg daily, ranitidine 300 mg daily, Dexilant 60 mg daily, Invokana 300 mg p.o. daily, pioglitazone for Actos 30 mg once a day, levothyroxine sodium 50 mcg once a day, vitamin C for ascorbic acid 500 mg daily, multivitamin 1 tablet once a day, fish oil 4 tablets daily, garlic one tablet at bedtime. FAMILY HISTORY: Significant for one brother who is alive, has multiple back and neck surgeries. Her father in his early 70s because of congestive heart failure and mother in her early 70s because of congestive heart failure. SOCIAL HISTORY: She is , has 3 sons and 2 daughters. She is an ex-smoker, quit 20 years ago. She used to smoke up to 1 pack a day. She also used to be a heavy drinker, but quit about 20 years ago. 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 REVIEW OF SYSTEMS: The patient denied any blurring of vision, cataracts. She has bilateral cataract extraction but denied any glaucoma or macular degeneration. Denied any earache, tinnitus or sensorineural deafness. Denied any nosebleeds, stuffy nose or postnasal drip. Denied any sore throat, sore tongue, toothache, hoarseness of voice or difficulty swallowing. Denied any nausea, vomiting, diarrhea or constipation. Denied any hematemesis, melena or hematochezia. Denied any dysuria, frequency or hematuria. He did complain of chest pain, shortness of breath, cough with a greenish sputum. Denied any dizziness, lightheadedness, or vertigo. PHYSICAL EXAMINATION: GENERAL: On examining her, she was sitting on the edge of the bed, slightly tachypneic, but there is no pallor, jaundice, cyanosis, or thyromegaly. No jugular distention, but mild bilateral lower limb edema. VITAL SIGNS: Her heart rate was 76, blood pressure was 185/80, temperature was 98.4, and oxygen saturation was 96% on room air. HEENT: Showed normocephalic, atraumatic. NECK: Supple. HEART: Showed normal first and second heart sounds. No gallop, rub or murmur. CHEST: Clear to auscultation. No crepitation or rhonchi. ABDOMEN: Distended, soft, nontender. No guarding or rigidity. No organomegaly. All hernial orifices intact. Bowel sounds normal. NEUROLOGIC: She was awake, alert, responding appropriately. Cranial nerves intact. EXTREMITIES: She moves her extremities without difficulty. She ambulates without assistance or assistive devices. LABORATORY DATA: Her lab work this morning showed a white cell count of 4300, hemoglobin 12.8, hematocrit 39, MCV 89, platelet count of 136,000. Her chemistry showed a serum sodium 143, potassium 4.7, chloride 105, bicarbonate 31, anion gap of 7, BUN 24, creatinine 1.4, estimated GFR was 37.4, glucose was 80, calcium was 8.6, magnesium 2.1. Total bilirubin, AST, ALT, alkaline phosphatase were normal. Total protein was 6.4, albumin was 3.2. She did have a chest x-ray done, which showed that the heart is enlarged. The pulmonary vascularity is within normal limits. Left hemidiaphragm is partially obscured by the patient's overlying abdominal pannus, and a portable technique, no pulmonary infiltrate or pleural effusion fluid is seen. Surgical clips projected over the right axillary region. ASSESSMENT AND PLAN: In summary, this is a 67-year-old female patient who was admitted as she failed outpatient treatment for presumed upper respiratory tract infection. She has been complaining of cough, shortness of breath with greenish sputum and chest pain together with orthopnea, paroxysmal nocturnal dyspnea. She was treated with a course of steroids and also doxycycline without much improvement. Her chest x-ray was unremarkable, apart from cardiomegaly. She is scheduled for a V/Q scan ____ legs are asymmetrically swollen. My impression is that her cough is probably induced by her TOMASA inhibitor; however, we will treat her with IV antibiotics, to rule out least an atypical infection and as she is ALLERGIC TO PENICILLIN, I will probably start her on meropenem as well as Zithromax and start her also on steroids and inhalers. I will definitely stop her benazepril, continue to monitor her blood sugar as they would probably going to be higher with the steroids. We will do a Doppler ultrasound of both lower extremities and await the result of the V/Q scan. VIPUL SHERIDAN MD DR: YUDI/noemi JOB#: [id number] / [id number]
--- NOTE | 2017-12-08 20:01 | RAD ---
EXAM: VENTILATION/PERFUSION SCINTIGRAPHY. HISTORY: Shortness of breath. Assess for pulmonary embolism. TECHNIQUE: 21.0 mCi Xe-133 was inhaled and ventilation images were obtained. 5.5 mCi Tc-99m MAA was injected intravenously and perfusion images were obtained in multiple projections. COMPARISON: Chest radiograph December 08, 2017. FINDINGS: Ventilation images demonstrate a physiologic distribution of radiotracer. There are limitations from artifact along the left inferior aspects of the images. Perfusion is mildly decreased in the left apex in a nonanatomic distribution suggesting attenuation from the arm on the lateral projection. There are no clear segmental defects. IMPRESSION: 1. Low probability for pulmonary embolism. Electronically signed by: Deepak Burks MD (12/08/2017 7:58 PM) [facility]
[2017-12-08] MEDS: IPRATRPIUM/ALBUTEROL 0.5/2.5MG 3 ML NEBU. NEB SCH (20:31)
[2017-12-08] MEDS ORDERED: ZOLPIDEM TARTRATE 10 MG PO PRN (21:00)
[2017-12-08] MEDS: POTASSIUM CHLORIDE 20 MEQ PO SCH (21:35)
[2017-12-08] MEDS: MEROPENEM 500 MG in IV NORMAL SALINE 50ML 50 ML IV SCH (21:35)
[2017-12-08] MEDS: CARISOPRODOL 350 MG PO SCH (21:35)
[2017-12-08] MEDS: HYDRALAZINE HCL 25 MG PO SCH (21:36)
[2017-12-08] MEDS: FUROSEMIDE 80 MG PO SCH (21:36)
[2017-12-08] MEDS: ASPIRIN 81 MG PO SCH (21:36)
[2017-12-08] MEDS: CARVEDILOL 6.25 MG PO SCH (21:36)
[2017-12-08] MEDS: SIMVASTATIN 40MG TAB PO SCH (21:36)
[2017-12-08] MEDS: Gabapentin 600 MG TAB PO SCH (21:36)
[2017-12-08] MEDS: MORPHINE SULFATE 60 MG PO SCH (21:37)
--- NOTE | 2017-12-08 21:40 | RAD ---
EXAM: Bilateral lower extremity venous Doppler. HISTORY: Bilateral lower extremity pain/swelling. Shortness of breath. COMPARISON: None. FINDINGS: Grayscale and Doppler analysis of the both lower extremity deep venous systems was performed with graded compression and augmentation. The common femoral, greater saphenous, superficial femoral, popliteal and calf veins were assessed. There is no evidence of deep venous thrombosis. IMPRESSION: 1. No evidence of deep venous thrombosis. Electronically signed by: Deepak Burks MD (12/08/2017 9:36 PM) [facility]
[2017-12-08] MEDS: methylPREDNISolone SOD SUCC PF 40 MG/ML VIAL. IV SCH (21:54)
[2017-12-08] MEDS: MONTELUKAST 10 MG TABLET. PO SCH (21:55)
[2017-12-08] MEDS: PREGABALIN 75 MG CAPSULE PO SCH (21:55)
[2017-12-08] MEDS: HEPARIN PF for SUB-Q USE 5,000 UNIT/0.5 ML VIAL. SQ SCH (21:55)
[2017-12-08 23:00] VITALS: BP 162/81
[2017-12-09 03:00] VITALS: BP 171/81
[2017-12-09] MEDS: MEROPENEM 500 MG in IV NORMAL SALINE 50ML 50 ML IV SCH ×3 (03:16→20:47)
[2017-12-09] MEDS: IPRATRPIUM/ALBUTEROL 0.5/2.5MG 3 ML NEBU. NEB SCH ×4 (05:09→20:51)
[2017-12-09] MEDS: methylPREDNISolone SOD SUCC PF 40 MG/ML VIAL. IV SCH ×3 (06:05→20:47)
[2017-12-09] MEDS: HEPARIN PF for SUB-Q USE 5,000 UNIT/0.5 ML VIAL. SQ SCH ×3 (06:05→21:02)
[2017-12-09 07:00] VITALS: BP 149/66
[2017-12-09] MEDS: AMLODIPINE BESYLATE 10 MG PO SCH (09:00)
[2017-12-09] MEDS: BENAZEPRIL PO SCH (09:00)
[2017-12-09] MEDS: DOCUSATE SODIUM 100 MG CAPSULE PO SCH (09:00)
[2017-12-09] MEDS: CARISOPRODOL 350 MG PO SCH ×2 (09:00→14:32)
[2017-12-09] MEDS: OMEGA-3 FATTY ACIDS/FISH OIL 1,000 MG CAPSULE. PO SCH (09:00)
[2017-12-09] MEDS: LACTOBACILLUS RHAMNOSUS GG 1 CAPSULE. PO SCH ×2 (09:31→20:47)
[2017-12-09] MEDS: PREGABALIN 75 MG CAPSULE PO SCH ×2 (09:32→14:26)
[2017-12-09] MEDS: LACTULOSE 20 GM/30 ML SOLUTION. PO SCH (09:32)
[2017-12-09] MEDS: PIOGLITAZONE HCL 30 MG PO SCH (09:35)
[2017-12-09] MEDS: LEVOTHYROXINE SODIUM 200 MCG PO SCH (09:35)
[2017-12-09] MEDS: HYDRALAZINE HCL 25 MG PO SCH ×2 (09:36→20:51)
[2017-12-09] MEDS: POTASSIUM CHLORIDE 20 MEQ PO SCH ×2 (09:37→20:49)
[2017-12-09] MEDS: SPIRONOLACTONE 25 MG PO SCH (09:38)
[2017-12-09] MEDS: METFORMIN HCL 500 MG PO SCH ×2 (09:38→17:00)
[2017-12-09] MEDS: FUROSEMIDE 80 MG PO SCH ×2 (09:38→20:51)
[2017-12-09] MEDS: CARVEDILOL 6.25 MG PO SCH ×2 (09:39→20:50)
[2017-12-09] MEDS: ASPIRIN 81 MG PO SCH ×2 (09:40→20:49)
[2017-12-09] MEDS: MORPHINE SULFATE 60 MG PO SCH ×2 (09:40→20:52)
[2017-12-09] MEDS: AZITHROMYCIN 250 MG TABLET. PO SCH (09:40)
[2017-12-09] MEDS: FLUTICASONE IH SCH (09:41)
[2017-12-09] MEDS: SALMETEROL IH SCH (09:41)
[2017-12-09 11:00] VITALS: BP 146/63
[2017-12-09 15:00] VITALS: BP 169/59
[2017-12-09] MEDS ORDERED: RANITIDINE HCL 300 MG PO SCH (17:00)
[2017-12-09] MEDS: ACETAMINOPHEN 325 MG TABLET PO PRN (17:08)
[2017-12-09 19:20] VITALS: BP 157/65
[2017-12-09] MEDS: MONTELUKAST 10 MG TABLET. PO SCH (20:47)
[2017-12-09] MEDS: NON FORMULARY ITEM (Ranitidine Hcl 1 CAP) PO SCH (20:53)
[2017-12-10] MEDS: Gabapentin 600 MG TAB PO SCH (00:29)
[2017-12-10] MEDS: SIMVASTATIN 40MG TAB PO SCH (00:29)
[2017-12-10] MEDS: PREGABALIN 75 MG CAPSULE PO SCH ×3 (00:29→13:51)
[2017-12-10] MEDS: CARISOPRODOL 350 MG PO SCH ×3 (00:31→21:00)
[2017-12-10] MEDS: NON FORMULARY ITEM (Metformin Hcl 1 TAB) PO SCH ×3 (00:31→21:00)
[2017-12-10] MEDS: HEPARIN PF for SUB-Q USE 5,000 UNIT/0.5 ML VIAL. SQ SCH (03:19)
--- NOTE | 2017-12-10 04:01 | PN ---
DATE: 12/09/2017 SUBJECTIVE: The patient is resting, slightly propped up in bed, continued to have recurrent bouts of cough, which is mostly dry. Denied any chest pain. Continued to have some shortness of breath. She is maintaining her oxygen saturations 93% on room air. She was extensively investigated and her chest x-ray was unremarkable. The report said that the heart is enlarged. The pulmonary vascularity is within normal limits. The left hemidiaphragm is partially obscured by the patient's overlying abdominal pannus and ____. No pulmonary infiltrate or pleural effusion is seen. Surgical clips are projected over the right axillary region. She has bilateral venous Doppler ultrasound, which showed no evidence of deep vein thrombosis on both lower extremities. As her kidney function was abnormal, she underwent pulmonary ventilation perfusion scan, which was interpreted as low probability for pulmonary embolism. ASSESSMENT AND PLAN: This is a 67-year-old female patient, who came in with cough that has been going on for more than a month now. She has failed outpatient antibiotic and steroid treatment and her chest x-ray and ventilation perfusion scan as well as Doppler ultrasound showed no evidence of deep vein thrombosis or pulmonary embolism. My Differential diagnoses include: 1. Acute bronchitis with infection with some form of atypical ____ organism, for which we started her on Zithromax. 2. Side effect of her TOMASA inhibitor and I did actually discontinued her TOMASA inhibitor. She is on hydralazine 25 mg twice a day, Coreg 6.25 mg twice a day, and amlodipine 10 mg once a day. Plan is to continue with the IV antibiotic, IV steroids, inhalers. VIPUL SHERIDAN MD DR: YUDI/noemi JOB#: [id number] / [id number]
[2017-12-10] MEDS: methylPREDNISolone SOD SUCC PF 40 MG/ML VIAL. IV SCH ×2 (04:29→04:30)
[2017-12-10] MEDS: MEROPENEM 500 MG in IV NORMAL SALINE 50ML 50 ML IV SCH ×3 (04:29→21:39)
--- NOTE | 2017-12-10 04:32 | NUR ---
Pt refuses solu medrol.
[2017-12-10 06:07] VITALS: BP 183/80
[2017-12-10] MEDS: IPRATRPIUM/ALBUTEROL 0.5/2.5MG 3 ML NEBU. NEB SCH ×3 (06:11→21:59)
[2017-12-10] MEDS: BENAZEPRIL PO SCH (09:00)
[2017-12-10] MEDS: OMEGA-3 FATTY ACIDS/FISH OIL 1,000 MG CAPSULE. PO SCH (09:00)
[2017-12-10] MEDS: AMLODIPINE BESYLATE 10 MG PO SCH (09:00)
[2017-12-10] MEDS: LACTULOSE 20 GM/30 ML SOLUTION. PO SCH (09:00)
[2017-12-10] MEDS: HYDRALAZINE HCL 25 MG PO SCH ×2 (09:26→20:40)
[2017-12-10] MEDS: CARVEDILOL 6.25 MG PO SCH ×2 (09:26→20:40)
[2017-12-10] MEDS: MORPHINE SULFATE 60 MG PO SCH ×2 (09:26→20:42)
[2017-12-10] MEDS: ASPIRIN 81 MG PO SCH ×2 (09:26→20:43)
[2017-12-10] MEDS: LEVOTHYROXINE SODIUM 200 MCG PO SCH (09:27)
[2017-12-10] MEDS: FUROSEMIDE 80 MG PO SCH ×2 (09:27→20:39)
[2017-12-10] MEDS: SPIRONOLACTONE 25 MG PO SCH (09:29)
[2017-12-10] MEDS: FLUTICASONE IH SCH (09:29)
[2017-12-10] MEDS: SALMETEROL IH SCH (09:29)
[2017-12-10] MEDS: PIOGLITAZONE HCL 30 MG PO SCH (09:29)
[2017-12-10] MEDS: LACTOBACILLUS RHAMNOSUS GG 1 CAPSULE. PO SCH (09:30)
[2017-12-10] MEDS: AZITHROMYCIN 250 MG TABLET. PO SCH (09:30)
[2017-12-10] MEDS: POTASSIUM CHLORIDE 20 MEQ PO SCH ×2 (09:30→20:38)
[2017-12-10] MEDS: DOCUSATE SODIUM 100 MG CAPSULE PO SCH (09:31)
--- NOTE | 2017-12-10 10:46 | NUR ---
Benazepril and Norvasc note given this morning; Dr. Wisdom thinks this may be contributing to pt's cough. Pt also refused fish oil, stating she would resume taking this when she is discharged home.
[2017-12-10 11:26] LABS: BASO % 0 % (0-3); EOS % 0 % (0-3); HEMATOCRIT 38.3 % (36.0-47.0); HEMOGLOBIN 12.6 g/dL (12.0-15.5); LYMPH # 1.1 x10^3/uL (1.0-4.8); LYMPH % 15 % (24-48); MEAN CORPUSCULAR HEMOGLOBIN 29 pg (25-35); MEAN CORPUSCULAR HGB CONC 33 g/dL (31-37); MEAN CORPUSCULAR VOLUME 87 fL (79-100); MONO # 0.5 x10^3/uL (0.0-1.1); MONO % 6 % (0-9); NEUT # 5.9 x10^3uL (1.8-7.7); NEUT % 79 % (31-73); PLATELET COUNT 146 x10^3/uL (140-400); RED CELL DISTRIBUTION WIDTH 16.1 % (11.5-14.5); WHITE BLOOD COUNT 7.5 x10^3/uL (4.0-11.0)
[2017-12-10 11:41] VITALS: BP 163/61
[2017-12-10 11:47] LABS: ALBUMIN 3.1 g/dL (3.4-5.0); CALCIUM 8.7 mg/dL (8.5-10.1); CREATININE 1.4 mg/dL (0.6-1.0); GFR 37.4; POTASSIUM 4.4 mmol/L (3.5-5.1); TOTAL BILIRUBIN 0.6 mg/dL (0.2-1.0); TOTAL PROTEIN 6.2 g/dL (6.4-8.2)
[2017-12-10 11:59] LABS: % BANDS 1 % (0-9); % LYMPHS 15 % (24-48); % MONOS 9 % (0-10); % SEGS 75 % (35-66); PLT ESTIMATE ADEQUATE (ADEQUATE); POLYCHROMASIA SLIGHT
[2017-12-10 12:00] LABS: ANISOCYTOSIS SLIGHT
--- NOTE | 2017-12-10 20:20 | NUR ---
Pt stated she is a night owl and never sleeps at night. Pt has an idiosyncratic dosing schedule for her own devising, taking some of her 2100 meds at 2100 and some at 0030. Pt also brought in her own pill bottles and is insisting on taking her own medications from her own bottles. Pt bottles stored in med room, pharmacy created additional scan-able labels for our tracking purposes. Pt has been doing this since her admission to ICU per pt and nursing report I received this shift. Pt ran out of her Ambien this evening, one time dose ordered, possible further changes tomorrow morning.
[2017-12-10] MEDS ORDERED: POTASSIUM CL 40MEQ D5-0.45NACL 1,000 ML IV ONE (20:56)
[2017-12-10] MEDS: NON FORMULARY ITEM (Ranitidine Hcl 1 CAP) PO SCH (21:00)
[2017-12-10 23:51] VITALS: BP 128/65
[2017-12-11] MEDS: Gabapentin 600 MG TAB PO SCH (00:28)
[2017-12-11] MEDS: SIMVASTATIN 40MG TAB PO SCH (00:29)
[2017-12-11] MEDS: MONTELUKAST 10 MG TABLET. PO SCH (00:38)
[2017-12-11] MEDS: PREGABALIN 75 MG CAPSULE PO SCH ×3 (00:38→16:55)
[2017-12-11] MEDS: LACTOBACILLUS RHAMNOSUS GG 1 CAPSULE. PO SCH ×3 (00:38→20:52)
[2017-12-11] MEDS ORDERED: ZOLPIDEM 5 MG TABLET. PO PRN (01:00)
[2017-12-11] MEDS ORDERED: ZOLPIDEM 5 MG TABLET. PO ONE (01:00)
[2017-12-11] MEDS: MEROPENEM 500 MG in IV NORMAL SALINE 50ML 50 ML IV SCH ×3 (03:44→20:50)
--- NOTE | 2017-12-11 06:01 | PN ---
DATE: 12/10/2017 SUBJECTIVE: The patient is sitting on the edge of the bed comfortably in no apparent distress. Questioning her, she said she is feeling much improved, although she continued to have cough, much less than before, shortness of breath, although she is improving. She is now maintaining her oxygen saturations 98%. PHYSICAL EXAMINATION: GENERAL: When I examined her, she looked well and was clearly in no apparent respiratory distress, slightly pale, but no jaundice, cyanosis, or thyromegaly. No jugular venous distension. No lower limb edema. VITAL SIGNS: Her heart rate was 56, blood pressure was 180/80, temperature was 98, respiratory rate was 20, and oxygen saturation was 98% on room air. HEAD, EYES, EARS, NOSE AND THROAT: Showed normocephalic, atraumatic. NECK: Supple. HEART: Showed normal first and second sounds. No gallop, rub or murmur. CHEST: Clear to auscultation. No crepitation or rhonchi. ABDOMEN: Distended, soft, nontender. NEUROLOGIC: She is awake, alert, responding appropriately. Her cranial nerves intact. She moves extremities without difficulty. Her intake was 500. No output was recorded. LABORATORY DATA: Her lab work this morning showed a white cell count 7500, hemoglobin 12.6, hematocrit 38, MCV 87, and platelet count of 146,000. Her chemistry is still pending at the time of this dictation. ASSESSMENT: 1. Acute bronchitis, probably some form of atypical organisms, for which started on Zithromax. 2. Questionable side effect of TOMASA inhibitor, did actually discontinue her benazepril. 3. Hypertension for which she is now on hydralazine 25 mg twice a day, Coreg 6.25 mg twice a day, amlodipine 10 mg once a day. PLAN: My plan is to discontinue the Solu-Medrol as the patient is refusing to take it. Continue with all other medication, and hopefully, she can be discharged home tomorrow. VIPUL SHERIDAN MD DR: YUDI/noemi JOB#: [id number] / [id number]
[2017-12-11 06:06] VITALS: BP 124/85
[2017-12-11] MEDS: IPRATRPIUM/ALBUTEROL 0.5/2.5MG 3 ML NEBU. NEB SCH ×4 (06:58→20:56)
[2017-12-11] MEDS: AZITHROMYCIN 250 MG TABLET. PO SCH (09:22)
[2017-12-11] MEDS: LACTULOSE 20 GM/30 ML SOLUTION. PO SCH (09:22)
[2017-12-11] MEDS: NON FORMULARY ITEM (Metformin Hcl 1 TAB) PO SCH (09:24)
[2017-12-11] MEDS: FLUTICASONE IH SCH (09:24)
[2017-12-11] MEDS: CARISOPRODOL 350 MG PO SCH (09:24)
[2017-12-11] MEDS: SPIRONOLACTONE 25 MG PO SCH (09:24)
[2017-12-11] MEDS: PIOGLITAZONE HCL 30 MG PO SCH (09:24)
[2017-12-11] MEDS: LEVOTHYROXINE SODIUM 200 MCG PO SCH (09:24)
[2017-12-11] MEDS: POTASSIUM CHLORIDE 20 MEQ PO SCH ×2 (09:24→20:52)
[2017-12-11] MEDS: SALMETEROL IH SCH (09:24)
[2017-12-11] MEDS: ASPIRIN 81 MG PO SCH ×2 (09:25→20:52)
[2017-12-11] MEDS: HYDRALAZINE HCL 25 MG PO SCH ×2 (09:25→20:53)
[2017-12-11] MEDS: MORPHINE SULFATE 60 MG PO SCH ×2 (09:25→20:54)
[2017-12-11] MEDS: FUROSEMIDE 80 MG PO SCH ×2 (09:25→20:55)
[2017-12-11] MEDS: CARVEDILOL 6.25 MG PO SCH ×2 (09:25→20:54)
[2017-12-11] MEDS: OMEGA-3 FATTY ACIDS/FISH OIL 1,000 MG CAPSULE. PO SCH (09:26)
[2017-12-11] MEDS: BENAZEPRIL PO SCH (09:26)
[2017-12-11] MEDS: DOCUSATE SODIUM 100 MG CAPSULE PO SCH (09:26)
[2017-12-11] MEDS: AMLODIPINE BESYLATE 10 MG PO SCH (09:26)
[2017-12-11 11:00] VITALS: BP 150/74
[2017-12-11] MEDS: BENZONATATE 100 MG CAPSULE. PO SCH ×2 (13:45→14:00)
[2017-12-11 15:00] VITALS: BP 154/75
[2017-12-11 20:20] VITALS: BP 155/77
[2017-12-11] MEDS: ACETAMINOPHEN 325 MG TABLET PO PRN (20:51)
[2017-12-11] MEDS: NON FORMULARY ITEM (Ranitidine Hcl 1 CAP) PO SCH (20:51)
[2017-12-11 23:54] VITALS: BP 124/69
--- NOTE | 2017-12-12 00:08 | DS ---
DATE OF DISCHARGE: 12/11/2017 HOSPITAL COURSE: The patient is a 67-year-old female patient, who was admitted with recurrent episodes of cough with scanty whitish sputum. She was seen, treated for the same problem as an outpatient for 10 days with doxycycline and steroids and was admitted directly from her primary care physician and arrangement has been made for her to have a ventilation perfusion scan, which was read as low probability for pulmonary embolism. We did also bilateral venous Doppler ultrasound, which was negative for DVT. Her chest x-ray showed that her heart is enlarged. The pulmonary vascularity is within normal limits. The left hemidiaphragm is partially obscured by the patient's overlying abdominal pannus and portable technique but there is no pulmonary infiltrates or fluid is seen. Surgical clips are projected over the right axillary region. The patient was treated with multiple medications to cover all the possible causes of her chronic cough including atypical organisms like mycoplasma pneumonia, for which we started her on Zithromax. I discontinued her benazepril as the cough might be caused by TOMASA inhibitor. She is already on ranitidine to cover the gastroesophageal reflux disease and she is on diuretics in case the congestive heart failure is the culprit. She did generally well, although the cough has not completely subsided and a decision was made to discharge her home with home health, to continue with all her bronchodilator and tapering course of steroids and antibiotics. OBJECTIVE: GENERAL: When I saw her this afternoon, she looked well. She was sitting at the edge of the bed comfortably, in no apparent respiratory distress. She has no pallor, jaundice or cyanosis. No lymphadenopathy, no thyromegaly. No jugular venous distention. Mild bilateral limb edema. VITAL SIGNS: Her heart rate was 67, blood pressure was 150/74, temperature was 98.4, respiratory rate was 20, and oxygen saturation was 90% on room air. HEAD, EYES, EARS, NOSE AND THROAT: Showed normocephalic, atraumatic. NECK: Supple. HEART: Showed normal first and second sounds. No gallop, rub or murmur. CHEST: Clear to auscultation. No crepitation or rhonchi. ABDOMEN: Distended, soft, nontender. No guarding or rigidity. No organomegaly. Hernial orifices intact. Bowel sounds normal. NEUROLOGIC: She was awake, alert, and responding appropriately. Cranial nerves intact. She moves extremities without difficulty. She ambulates without assistance or assistive devices. Her intake over the last 24 hours was 1550 and no output was recorded. LABORATORY DATA: Her lab work this morning showed a white cell count 7500, hemoglobin 12, hematocrit 38, MCV 87, and platelet count of 146,000. Her chemistry showed a serum sodium of 139, potassium 4.4, chloride of 102, bicarbonate 29, anion gap of 8, BUN 25, creatinine 1.4, and estimated GFR was ____ mL per minute. Her glucose was ____, calcium was 8.7. Total bilirubin, AST, ALT, alkaline phosphatase were normal. Total protein was 6.2 and albumin 3.1. DISCHARGE MEDICATIONS: She was discharged on following medications: Aspirin 81 mg once a day, Soma 350 mg once a day and Soma half a tablet at bedtime, carvedilol 6.25 mg twice a day, diphenhydramine 25 mg every 6 hours, Colace 100 mg twice a day, fish oil 1 capsule once a day, Advair Diskus 100/50 one puff twice a day, furosemide 80 mg half a tablet twice a day, gabapentin 600 mg at bedtime, hydralazine 25 mg twice a day, lactulose 60 grams p.o. daily, levothyroxine sodium 50 mcg once a day, metformin 500 mg daily, morphine sulfate extended release 60 mg twice a day, Actos 30 mg once a day, potassium chloride for Klor-Con 20 mEq twice a day, Lyrica 75 mg 3 times a day, ranitidine 300 mg daily, simvastatin 40 mg at bedtime, spironolactone 25 mg daily, zolpidem tartrate or Ambien 10 mg at bedtime. She was discharged also on Tessalon Perles as well as Zithromax. FINAL DISCHARGE DIAGNOSES: Chronic cough, probably multifactorial, resolving. Other medical problems include hypertension, hyperlipidemia, type 2 diabetes, congestive heart failure, likely the left ventricular diastolic function, morbid obesity, obstructive sleep apnea, on CPAP; chronic kidney disease, hypothyroidism, and fibromyalgia. VIPUL SHERIDAN MD DR: YUDI/noemi JOB#: [id number] / [id number]
[2017-12-12] MEDS: PREGABALIN 75 MG CAPSULE PO SCH ×2 (00:31→10:03)
[2017-12-12] MEDS: BENZONATATE 100 MG CAPSULE. PO SCH ×2 (00:31→10:03)
[2017-12-12] MEDS: MONTELUKAST 10 MG TABLET. PO SCH (00:31)
[2017-12-12] MEDS: Gabapentin 600 MG TAB PO SCH (00:33)
[2017-12-12] MEDS: SIMVASTATIN 40MG TAB PO SCH (00:33)
[2017-12-12] MEDS: CARISOPRODOL 350 MG PO SCH ×2 (00:33→10:01)
[2017-12-12] MEDS: NON FORMULARY ITEM (Metformin Hcl 1 TAB) PO SCH ×2 (00:33→10:01)
[2017-12-12] MEDS ORDERED: ZOLPIDEM 5 MG TABLET. PO ONE (01:00)
[2017-12-12] MEDS: MEROPENEM 500 MG in IV NORMAL SALINE 50ML 50 ML IV SCH ×3 (04:00→12:00)
[2017-12-12] MEDS ORDERED: IPRATRPIUM/ALBUTEROL 0.5/2.5MG 3 ML NEBU. NEB ONE (05:00)
[2017-12-12 05:57] VITALS: BP 130/68
[2017-12-12] MEDS: SALMETEROL IH SCH (10:00)
[2017-12-12] MEDS: LEVOTHYROXINE SODIUM 200 MCG PO SCH (10:00)
[2017-12-12] MEDS: SPIRONOLACTONE 25 MG PO SCH (10:00)
[2017-12-12] MEDS: FLUTICASONE IH SCH (10:00)
[2017-12-12] MEDS: PIOGLITAZONE HCL 30 MG PO SCH (10:01)
[2017-12-12] MEDS: HYDRALAZINE HCL 25 MG PO SCH (10:02)
[2017-12-12] MEDS: POTASSIUM CHLORIDE 20 MEQ PO SCH (10:02)
[2017-12-12] MEDS: MORPHINE SULFATE 60 MG PO SCH (10:02)
[2017-12-12] MEDS: FUROSEMIDE 80 MG PO SCH (10:02)
[2017-12-12] MEDS: ASPIRIN 81 MG PO SCH (10:02)
[2017-12-12] MEDS: CARVEDILOL 6.25 MG PO SCH (10:02)
[2017-12-12] MEDS: AZITHROMYCIN 250 MG TABLET. PO SCH (10:03)
[2017-12-12] MEDS: LACTOBACILLUS RHAMNOSUS GG 1 CAPSULE. PO SCH (10:03)
[2017-12-12] MEDS: LACTULOSE 20 GM/30 ML SOLUTION. PO SCH (10:03)
[2017-12-12] MEDS: IPRATRPIUM/ALBUTEROL 0.5/2.5MG 3 ML NEBU. NEB SCH (10:58)
[2017-12-12 11:33] VITALS: BP 110/58
[2017-12-12] MEDS ORDERED: AZIT250T PO (12:11)
[2017-12-12] MEDS ORDERED: BENZ100C PO (12:11)
--- NOTE | 2017-12-12 12:53 | DS ---
DATE OF DISCHARGE: 12/12/2017 ADDENDUM The patient was initially was supposed to be discharged on 12/11/2017, however, she continued to have coughing spells and marked shortness of breath and decision was made to add Tessalon Perles and continue with her nebulized treatment. When I saw her today, she had no more cough, feeling generally much improved and decision was made to discharge her to continue with all the medication. We added prescription for Zithromax as well as Tessalon Perles. VIPUL SHERIDAN MD DR: YUDI/noemi JOB#: [id number] / [id number]
--- NOTE | 2017-12-12 14:00 | NUR ---
Discharge Note: LIZZIE TRONCOSO Discharge instructions and discharge home medications reviewed with Patient and a copy given. All questions have been answered and understanding verbalized. The following instructions and handouts were given: education regarding zithromax and tesselon perle; discharge instructions; scripts for zithromax, duoneb, and tesselon perle. Discontinued lines and drains: Peripheral IV intact. Patient discharged to Home or Self Care withFamily Membervia Wheelchair
== END 2017-12-12 16:17 | disposition home or self-care (01) | DRG 202 ==
LOC: ICU 17:10 → 1 SOUTH 12-10 19:02
PROVIDERS: ADMIT Internal Medicine; ATTEND Internal Medicine
PROC: 5A09357 Assistance with Respiratory Ventilation, Less than 24 Consecutive Hours, Continuous Positive Airway Pressure (ICD-10-PCS; principal; 2017-12-11)
DX: J20.0 Acute bronchitis due to Mycoplasma pneumoniae (principal); I13.0 Hypertensive heart and chronic kidney disease with heart failure and stage 1 through stage 4 chronic kidney disease, or unspecified chronic kidney disease; I50.32 Chronic diastolic (congestive) heart failure; Z68.44 Body mass index [BMI] 60.0-69.9, adult; Z98.42 Cataract extraction status, left eye; E11.22 Type 2 diabetes mellitus with diabetic chronic kidney disease; E66.01 Morbid (severe) obesity due to excess calories; E78.5 Hyperlipidemia, unspecified; E89.0 Postprocedural hypothyroidism; F17.210 Nicotine dependence, cigarettes, uncomplicated; G47.33 Obstructive sleep apnea (adult) (pediatric); M79.7 Fibromyalgia; N18.9 Chronic kidney disease, unspecified; Z96.652 Presence of left artificial knee joint; K21.9 Gastro-esophageal reflux disease without esophagitis; Z82.49 Family history of ischemic heart disease and other diseases of the circulatory system; Z85.3 Personal history of malignant neoplasm of breast; Z85.850 Personal history of malignant neoplasm of thyroid; Z90.710 Acquired absence of both cervix and uterus; Z98.41 Cataract extraction status, right eye; Z90.722 Acquired absence of ovaries, bilateral; Z88.6 Allergy status to analgesic agent; Z88.1 Allergy status to other antibiotic agents; Z88.0 Allergy status to penicillin; Z88.2 Allergy status to sulfonamides
CPT/HCPCS: 36415; 71045; 78582; 80053; 82565; 82947; 83735; 85007; 85025; 85379; 87641; 93970; 94640; 96374; A9540; A9558; J0456; J2185; J2920; J7620

== ENCOUNTER → 2017-12-08 | Outpatient (CLI) | payer MEDICARE, OTHER ==
[~2017-12-08] MED LIST changes: +AZIT250T PO; +BENZ100C PO; +IOHEXOL 300 MG/ML 75 ML VIAL. IV ONE
[2017-12-08 15:50] LABS: CREATININE 1.4 mg/dL (0.6-1.0); GFR 37.4
--- NOTE | 2017-12-08 17:02 | RAD ---
AP chest, 12/08/2017: HISTORY: Shortness of breath Comparison is made to a study from 11/24/2017. The heart is enlarged. The pulmonary vascularity is within normal limits. The left hemidiaphragm is partially secured by the patient's overlying abdominal pannus and the portable technique. No pulmonary infiltrate or pleural fluid is seen. Surgical clips are projected over the right axillary region. IMPRESSION: 1. Mild cardiomegaly. 2. No acute infiltrates. Electronically signed by: Ji Simmons MD (12/08/2017 4:58 PM) [facility]
== END | disposition home or self-care (01) ==
LOC: PMG 14:49
PROVIDERS: ATTEND Physician Assistant
DX: I51.7 Cardiomegaly (principal); E65 Localized adiposity
CPT/HCPCS: 36415; 71045; 82565; 85379

== ENCOUNTER → 2018-05-11 | Outpatient (CLI) | payer MEDICARE, OTHER ==
[~2018-05-11] MED LIST changes: +AZIT250T PO; +BENZ100C PO; +METF500T16 PO; -METF500T5 PO; -SPIR25TA3 PO; +SPIR25TA5 PO
[2018-05-11] MEDS: IOHEXOL 300 MG/ML 75 ML VIAL. IV ONE (15:04)
--- NOTE | 2018-05-11 15:53 | RAD ---
Examination: CT angiography chest HISTORY: History of elevated d-dimer, shortness of breath COMPARISON: None available TECHNIQUE: Axial CT angiographic images of chest were performed with IV contrast.: Sagittal 3-D MIP reformats are performed Exposure: One or more of the following individualized dose reduction techniques were utilized for this examination: 1. Automated exposure control 2. Adjustment of the mA and/or kV according to patient size 3. Use of iterative reconstruction technique FINDINGS: The caliber of the aorta grossly appears unremarkable. Moderate aortic atherosclerosis. Coronary artery calcifications identified. Moderate cardiomegaly. There is no evidence of filling defect identified in the main pulmonary arterial trunk and right and left main pulmonary arteries. The evaluation of the distal lobar, segmental branches of the pulmonary arteries is limited due to patient body habitus. Small focus of groundglass airspace opacity identified in the left upper lobe of the lung measuring 8 mm. Mild bibasilar lung airspace opacity likely atelectasis. No evidence of pleural effusion or pneumothorax. There is a diffuse decreased attenuation noted in the liver likely hepatic steatosis. Moderate to severe degenerative changes thoracic spine. IMPRESSION: 1. No evidence of central pulmonary embolism. The evaluation of the distal lobar, segmental branches of the pulmonary arteries is limited due to patient body habitus. 2. Coronary artery calcifications. 3. 8 mm groundglass opacity identified in the left upper lobe of the lung could be a nodule or atelectasis. Follow-up examination is recommended in 3-6 months. 4. Hepatic steatosis. Electronically signed by: Colin Kimbrough MD (05/11/2018 3:49 PM) [facility]
== END | disposition home or self-care (01) ==
LOC: CT 14:29
PROVIDERS: ATTEND Physician Assistant
DX: I70.0 Atherosclerosis of aorta (principal); I25.10 Atherosclerotic heart disease of native coronary artery without angina pectoris; I51.7 Cardiomegaly; K76.0 Fatty (change of) liver, not elsewhere classified; M47.894 Other spondylosis, thoracic region; Z87.891 Personal history of nicotine dependence
CPT/HCPCS: 71275; Q9967

== ENCOUNTER → 2018-07-04 | Outpatient (CLI) | payer MEDICARE, OTHER ==
[~2018-07-04] MED LIST changes: -CARV6.252 PO; +CARV6.2541 PO
--- NOTE | 2018-07-09 09:45 | RAD ---
DATE: 07/04/2018 2:00 AM EXAM: DIGITAL SCREEN BILAT W/CAD HISTORY: routine screening evaluation. COMPARISON: Prior mammographic imaging dating back to 03/09/2011 Bilateral full field craniocaudal and mediolateral oblique images were obtained using digital technique. This study was interpreted with the benefit of Computerized Aided Detection (CAD ). Breast Density: The breast parenchyma shows scattered fibroglandular densities. Breast parenchyma level B. FINDINGS: Benign calcifications are present. The parenchymal pattern appears stable. Surgical clips are seen within the right breast. No suspicious masses, microcalcifications or architectural distortion is present to suggest malignancy in either breast. The visualized axillae are unremarkable. IMPRESSION: No mammographic evidence of malignancy. BI-RADS CATEGORY: 2 BENIGN FINDING(S) RECOMMENDED FOLLOW-UP: 12M 12 MONTH FOLLOW-UP Annual screening mammography is recommended, unless clinically indicated sooner based on symptoms or change in physical exam. PQRS compliance statement: Patient information was entered into a reminder system with a target due date 07/04/2019 for the next mammogram. Mammography is a sensitive method for finding small breast cancers, but it does not detect them all and is not a substitute for careful clinical examination. A negative mammogram does not negate a clinically suspicious finding and should not result in delay in biopsying a clinically suspicious abnormality. "Our facility is accredited by the [employer] Mammography Program." CHRISTIANOD
== END | disposition home or self-care (01) ==
LOC: MAMMO 14:35
PROVIDERS: ATTEND Physician Assistant
DX: Z12.31 Encounter for screening mammogram for malignant neoplasm of breast (principal)
CPT/HCPCS: 77067

== ENCOUNTER 2018-10-12 18:57 | Inpatient (IN) | payer OTHER ==
[~2018-10-12] VITALS: Ht 160 cm; Wt 143.0 kg
[~2018-10-12 18:57] MED LIST changes: -GABA600T2 PO; +GABA600T7 PO
--- NOTE | 2018-10-12 19:01 | ED.ADGEN ---
Past History Past Medical History: Anemia, Arthritis, Bronchitis, CAD, CHF, COPD, Depression , Diabetes, Hyperthyroid, Other Past Surgical History: Other Smoking: Cigarettes Adult General Chief Complaint Chief Complaint ".. I just slipped and fell... and could not get back up... been on floor most of day..."..." I did nt want to come in.. but the paramedics said my sugar was too high.. and I had to come..." HPI HPI Patient is a 67 year old female who presents with above hx and complaints of fall. Pt. follows with Dr. Stoner. Brother at bedside said she has been running a fever for approximately 1 week and seemed to be getting weaker. Did not hear from her today. Found her on the floor. Patient has history of diabetes poor control, anemia, morbid obesity, chronic renal insufficiency, CHF , COPD, and deconditioning. Patient denies any dysrhythmia before fall. States she just slipped. Patient on the floor excess of [address] Stoner in the past. Review of Systems Review of Systems Patient somewhat poor historian Constitutional: Denies fever or chills [] Eyes: Denies change in visual acuity, redness, or eye pain [] HENT: Denies nasal congestion or sore throat [] Respiratory: Denies cough or shortness of breath [] Cardiovascular: No additional information not addressed in HPI [] GI: Denies abdominal pain, nausea, vomiting, bloody stools or diarrhea [] : Denies dysuria or hematuria [] Musculoskeletal: Denies back pain or joint pain []complains of generalized weakness Integument: Denies rash or skin lesions [] Neurologic: Denies headache, focal weakness or sensory changes [] Endocrine: Denies polyuria or polydipsia [] All other systems were reviewed and found to be within normal limits, except as documented in this note. Family History Family History Noncontributory Current Medications Current Medications See nursing for home meds Allergies Allergies Allergies Coded Allergies Type Severity Reaction Last Updated Verified Penicillins Allergy Severe 02/09/17 Yes Sulfa (Sulfonamide Antibiotics) Allergy Severe 02/09/17 Yes cephalexin Allergy Severe 02/09/17 Yes codeine Allergy Severe 02/09/17 Yes levofloxacin Allergy Severe 02/09/17 Yes omeprazole Allergy Severe 02/09/17 Yes valsartan Allergy Severe 02/09/17 Yes Physical Exam Physical Exam Constitutional: Moderately acute distress, ill in appearance. [] HENT: Normocephalic, atraumatic, bilateral external ears normal, oropharynx moist, no oral exudates, nose normal. [] Eyes: PERRLA, EOMI, conjunctiva normal, no discharge. Proptosis Neck: Normal range of motion, no tenderness, supple, no stridor. [] More than 17 inches circumference Cardiovascular:Heart rate regular rhythm, no murmur []PMI to the left Lungs & Thorax: Bilateral breath sounds scattered wheezes and rhonchi with basilar crackles throughout on auscultation [] Abdomen: Bowel sounds normal, soft, no tenderness, no masses, no pulsatile masses. [] Morbidly obese. Skin: Warm, dry, no erythema, no rash. [] Back: No tenderness, no CVA tenderness. [] Extremities: No tenderness, no cyanosis, no clubbing, ROM intact, bilateral ankle edema. [] Neurologic: Alert and oriented X 3, generalized motor weakness decrease plantar sensory function, no gross focal deficits noted per son and pt. other than marked lower limb weakness. Pt. unable to stand because of weakness. Dose move all ext. on request. Psychologic: Affect anxious, judgement normal, mood normal. [] Current Patient Data Vital Signs Vital Signs Date Time Temp Pulse Resp B/P (MAP) Pulse Ox O2 Delivery O2 Flow Rate FiO2 10/12/18 19:00 97.8 80 22 88 Room Air EKG EKG My interpretation EKG shows a sinus rhythm at 66 bpm. Left axis. Some nonspecific anterior inferior changes. Prolonged QT. QT interval 490 ms QTc interval 516.[] Radiology/Procedures Radiology/Procedures My interpretation of CT head Cervical shows some motion artifact. No large bleed, significant shift, edema or fx. Severe DJD of cervical spine. See formal report when available My interpretation of chest x-ray shows cardiomegaly, atelectasis, scattered infiltrate. My interpretation lumbar CT shows severe degenerative joint changes but no obvious fracture or dislocation. Does have foraminal and central stenosis[]. No obvious fracture pelvis. See formal reports are available Course & Med Decision Making Course & Med Decision Making Pertinent Labs and Imaging studies reviewed. (See chart for details) Critical Care 90+ min. Pt. admitted to Dr. Buck for further eval. and tx. [] Final Impression Final Impression 1. Fall 2. Hyperglycemia 3. Morbid Obesity 4. Hx. of Fevers- past week[] 5. Diabetes-hyperglycemia gluc. 472-DKA 7.2 ph 6. Anemia 11.1 7. Respiratory Failure- Hypercarbia and Hypoxia 8. Elev. ESR = 93 9. Hypernatremia 127 10. Acute on Chronic Renal Failure BUN 55/3.2 Creat 11. CHF- BNP 12,220 12. Elevated AST 116, ALT 78, Alk. Phos. 163 13. Malnutrition Alb. 2.4 14. Deconditioned 15. Leg Weakness 16. Severe DJD of Lumbar spine 17. Elevated D-dimer 3.76 18. UTI 19. Elevated CK 597 and Trop 0.475 20. Sepsis vs SIRS 21. Combined Metabolic and Respiratory Acidosis 22. Leukocytosis 19.4- elevation of segmented neutrophils 95 23 Elevated lactic acid 2.7 Ultrasound and VQ scan pending at time of admission Dragon Disclaimer Dragon Disclaimer This electronic medical record was generated, in whole or in part, using a voice recognition dictation system. Discharge Summary Visit Information Final Diagnosis Problems Medical Problems: (1) Dyspnea Status: Acute Brief Hospital Course Allergies Allergies Coded Allergies Type Severity Reaction Last Updated Verified Penicillins Allergy Severe 02/09/17 Yes Sulfa (Sulfonamide Antibiotics) Allergy Severe 02/09/17 Yes cephalexin Allergy Severe 02/09/17 Yes codeine Allergy Severe 02/09/17 Yes levofloxacin Allergy Severe 02/09/17 Yes omeprazole Allergy Severe 02/09/17 Yes valsartan Allergy Severe 02/09/17 Yes Vital Signs Vital Signs Date Time Temp Pulse Resp B/P (MAP) Pulse Ox O2 Delivery O2 Flow Rate FiO2 10/12/18 19:00 97.8 80 22 88 Room Air Brief Hospital Course Ms. Gonzalez is a 67 old female who presented with hx fall at home. Unable to get up more than 8 hrs. Admitted [facility] Discharge Information Condition at Discharge: Improved Dischare Medications Active Scripts Active Zithromax (Azithromycin) 250 Mg Tablet 250 Mg PO DAILY 5 Days Tessalon Perle (Benzonatate) 100 Mg Capsule 1 Cap PO TID Reported Hydralazine Hcl 25 Mg Tablet 1 Tab PO BID last dose this morning next dose tonight Benadryl (Diphenhydramine Hcl) 25 Mg Capsule 25 Mg PO PRN Q6HRS PRN may use as needed for itching/withdrawal symptoms Spironolactone 25 Mg Tablet 1 Tab PO DAILY last dose this morning next dose tomorrow Morphine Sulfate Er (Morphine Sulfate) 60 Mg Tablet.er 1 Tab PO BID last dose this morning next dose due tonight Docusate Sodium 100 Mg Capsule 1 Cap PO DAILY not taken today may take tomorrow stool softener to prevent constipation with MS Contin Carvedilol 6.25 Mg Tablet 1 Tab PO BID last dose this morning next dose tonight replaces Bystolic Lyrica (Pregabalin) 75 Mg Capsule 75 Mg PO TID last dose at 11am next dose 7:30pm Simvastatin 40 Mg Tablet 1 Tab PO QHS last dose last night next dose tonight Soma (Carisoprodol) 350 Mg Tablet 0.5 Tab PO QHS at 11pm nightly 175mg (half a tablet) last dose last night next dose tonight Ambien (Zolpidem Tartrate) 10 Mg Tablet 1 Tab PO QHS last dose last night next dose tonight Gabapentin 600 Mg Tablet 600 Mg PO HS last dose last night next dose tonight Ranitidine Hcl 300 Mg Capsule 1 Cap PO DAILYWSUP last dose with supper last night next dose tonight with supper Aspirin 81 Mg Tab.chew 81 Mg PO BID last dose this morning next dose tonight Advair 100-50 Diskus (Fluticasone/Salmeterol) 1 Each Disk.w.dev 1 Puff IH DAILY not given in hospital may resume use at home Klor-Con M20 (Potassium Chloride) 20 Meq Tab.er.prt 1 Tab PO BID 10mEq daily last dose this morning next dose tomorrow Kristalose (Lactulose) 20 Gm Packet 60 Gm PO DAILY not taken today may resume as needed for constipation Furosemide 80 Mg Tablet 0.5 Tab PO BID 40mg twice a day last dose this afternoon next dose tomorrow morning Metformin Hcl 500 Mg Tablet 1 Tab PO DAILY last dose this morning next dose tomorrow Levothyroxine Sodium 50 Mcg Tablet 1 Tab PO DAILY last dose this morning next dose tomorrow morning Actos (Pioglitazone Hcl) 30 Mg Tablet 1 Tab PO DAILY last dose this morning next dose tomorrow [place] 3-6-9 1,200 mg Softgel (Fish Oil/Borage/Flax/Om3,6,9#1) 1,200 Mg Capsule 4 Tab PO DAILY last dose this morning next dose tomorrow morning Soma (Carisoprodol) 350 Mg Tablet 1 Tab PO DAILY daily at 3am 350mg tablet last dose this morning next dose tomorrow morning Ariela Disclaimer This chart was dictated in whole or in part using Voice Recognition software in a busy, high-work load, and often noisy Emergency Department environment. It may contain unintended and wholly unrecognized errors or omissions. RACHEAL MARIN MD Oct 12, 2018 19:01
[2018-10-12] MEDS ORDERED: IV RINGERS SOLUTION,LACTATED 1,000 ML IV SCH (19:04)
[2018-10-12] MEDS ORDERED: ASPIRIN 81 MG TAB.CHEW PO ONE ×2 (19:15→21:00)
[2018-10-12] MEDS ORDERED: IPRATRPIUM/ALBUTEROL 0.5/2.5MG 3 ML NEBU. NEB ONE (19:15)
[2018-10-12] MEDS ORDERED: IV NORMAL SALINE 1,000ML 1,000 ML IV ONE ×2 (19:15→21:15)
[2018-10-12] MEDS ORDERED: INSULIN REGULAR VIAL 150 UNIT in 0.9 % SODIUM CHLORIDE 150ML 150 ML IV ONE ×2 (19:15→21:30)
[2018-10-12 20:17] LABS: BASO % 0 % (0-3); EOS % 0 % (0-3); HEMATOCRIT 33.9 % (36.0-47.0); HEMOGLOBIN 11.1 g/dL (12.0-15.5); LYMPH # 0.5 x10^3/uL (1.0-4.8); LYMPH % 3 % (24-48); MEAN CORPUSCULAR HEMOGLOBIN 29 pg (25-35); MEAN CORPUSCULAR HGB CONC 33 g/dL (31-37); MEAN CORPUSCULAR VOLUME 89 fL (79-100); MONO # 0.5 x10^3/uL (0.0-1.1); MONO % 3 % (0-9); NEUT # 18.4 x10^3uL (1.8-7.7); NEUT % 95 % (31-73); PLATELET COUNT 159 x10^3/uL (140-400); RED CELL DISTRIBUTION WIDTH 16.7 % (11.5-14.5); WHITE BLOOD COUNT 19.4 x10^3/uL (4.0-11.0)
[2018-10-12 20:24] LABS: BARBITURATES NEG (NEG); BENZODIAZEPINES NEG (NEG); CANNABINOIDS NEG (NEG); COCAINE NEG (NEG); METHADONE NEG (NEG); OPIATES POS (NEG); PHENCYCLIDINE NEG (NEG)
[2018-10-12 20:25] LABS: AMPHETAMINE/METHAMPHETAMINE NEG (NEG)
[2018-10-12 20:29] LABS: BACTERIA,URINE FEW /HPF (0-FEW); BILIRUBIN,URINE NEG (NEG); CLARITY,URINE CLOUDY; COLOR,URINE YELLOW; GLUCOSE,URINE >=1000 mg/dL (NEG); NITRITE,URINE NEG (NEG); SQUAMOUS EPITHELIAL CELL,UR OCC /LPF; UROBILINOGEN,URINE 0.2 mg/dL (0.2 mg/dL)
[2018-10-12 20:49] LABS: BGAS PH 7.3 (7.35-7.45)
[2018-10-12] MEDS ORDERED: MVI, ADULT NO.4 WITH VIT K 10 ML, FOLIC ACID SYRINGE for ER 1 MG, THIAMINE INJ 100 MG i... IV ONE ×4 (21:00)
[2018-10-12] MEDS ORDERED: ONDANSETRON PF 4 MG/2 ML VIAL. IV PRN (21:00)
[2018-10-12] MEDS ORDERED: VANCOMYCIN 1 GM in IV NORMAL SALINE 250ML 250 ML IV ONE (21:00)
[2018-10-12 21:01] LABS: INFLUENZA A PATIENT NEGATIVE (NEGATIVE); INFLUENZA B PATIENT NEGATIVE (NEGATIVE)
[2018-10-12 21:06] LABS: % ATYL 1 % (0-0); % LYMPHS 4 % (24-48); % MONOS 2 % (0-10); % SEGS 93 % (35-66); PLT ESTIMATE ADEQUATE (ADEQUATE)
[2018-10-12 21:08] LABS: ANISOCYTOSIS SLIGHT; POLYCHROMASIA SLIGHT; TOXIC GRANULATION SLIGHT
[2018-10-12 21:10] LABS: SEDIMENTATION RATE 93 (0-25)
[2018-10-12] MEDS ORDERED: CLINDAMYCIN 900 MG/6 ML VIAL. IM ONE (21:15)
[2018-10-12 21:18] LABS: ALBUMIN 2.4 g/dL (3.4-5.0); CALCIUM 8.4 mg/dL (8.5-10.1); CREATININE 3.2 mg/dL (0.6-1.0); DIRECT BILIRUBIN 0.6 mg/dL (0.0-0.2); GFR 14.4; MAGNESIUM 1.9 mg/dL (1.8-2.4); POTASSIUM 4.4 mmol/L (3.5-5.1); TOTAL BILIRUBIN 1.1 mg/dL (0.2-1.0); TOTAL PROTEIN 6.2 g/dL (6.4-8.2)
[2018-10-12] MEDS ORDERED: VANCOMYCIN 2 GM in IV NORMAL SALINE 500ML 500 ML IV ONE (21:30)
[2018-10-12] MEDS ORDERED: FUROSEMIDE 40 MG/4 ML VIAL IVP ONE (21:45)
[2018-10-12] MEDS ORDERED: SODIUM BICARB ADULT 8.4% 50 MEQ/50 ML DISP.SYRIN. IV ONE (21:45)
--- NOTE | 2018-10-12 23:00 | RAD ---
INDICATION: Fall COMPARISON: None. TECHNIQUE: Axial CT images obtained through the lumbar spine. One or more of the following individualized dose reduction techniques were utilized for this examination: 1. Automated exposure control; 2. Adjustment of the mA and/or kV according to patient size; 3. Use of iterative reconstruction technique. FINDINGS: Severe degenerative changes of the lumbar spine with osteophyte formation at the vertebral body endplates as well as uncovertebral and facet hypertrophy with multilevel central canal and neural foraminal stenosis. Retrolisthesis of L3 on 4 and L2 on 3 as well as L1 on 2. Vacuum disc phenomenon at multiple levels. Scoliotic curvature of the spine. Calcific atherosclerosis. Partially visualized spleen appears enlarged. Liver appears low density. Nonspecific but can be seen with fatty infiltration. Calcification at right kidney. IMPRESSION: 1. Severe degenerative changes of the lumbar spine without a definite acute fracture line seen. Multilevel central canal and neural foraminal stenosis throughout. Electronically signed by: Juan Ramon Boland MD (10/12/2018 10:57 PM) [facility]
--- NOTE | 2018-10-12 23:04 | EKG ---
[address] [address] Test Date: 2018-10-12 Test Time: 20:03:20 Pat Name: LIZZIE TRONCOSO Department: Room: Gender: F [employer]: DIVINE : 1950 Requested By: RACHEAL MARIN Order Number: [id number] Reading MD: Scott Coffey Measurements Intervals [place] Rate: 66 P: 90 GA: 190 QRS: -8 QRSD: 98 T: -16 QT: 490 QTc: 516 Interpretive Statements SINUS RHYTHM LEFTWARD AXIS T ABNORMALITY IN ANTERIOR LEADS INFERIOR LEADS PROLONGED QT ABNORMAL ECG Electronically Signed On 10-22-2018 12:35:32 CDT by Scott Coffey
--- NOTE | 2018-10-12 23:56 | RAD ---
RS Compliance Statement: One or more of the following individualized dose reduction techniques were utilized for this examination: 1. Automated exposure control 2. Adjustment of the mA and/or kV according to patient size 3. Use of iterative reconstruction technique CT PELVIS WO CONTRAST Clinical Indication: Fall Comparison: AP pelvis, earlier same day. TECHNIQUE: Helical CT imaging of the pelvis is performed without IV contrast. Findings: Please refer to separately dictated CT lumbar spine 4 Lumbar Spine findings. Sacrum and coccyx alignment is maintained on the lateral view. An acute fracture is not identified. The sacroiliac joints are symmetric. No diastasis of symphysis pubis, mild degenerative changes. There is [id number] degenerative arthropathy of the hips for patient age. No acute fracture or dislocation of the hips. No acute pelvic fracture is identified. Evaluation of soft tissues is limited due to increased noise to signal ratio. There is probably a tiny nonobstructing right renal calculus. Keyes catheter in decompressed urinary bladder. No dilated bowel. Hysterectomy. No pelvic free fluid. No intramuscular hematoma. IMPRESSION: No acute fracture. Electronically signed by: Karan Khan MD (10/12/2018 11:53 PM) [facility]
[2018-10-13] VITALS (15 sets, daily range): BP systolic 90–154; BP diastolic 46–82
--- NOTE | 2018-10-13 00:14 | RAD ---
INDICATION: Fall COMPARISON: None. TECHNIQUE: Axial CT images obtained through the head and cervical spine. One or more of the following individualized dose reduction techniques were utilized for this examination: 1. Automated exposure control; 2. Adjustment of the mA and/or kV according to patient size; 3. Use of iterative reconstruction technique. FINDINGS: Head: Motion limits this exam. No midline shift. Scattered foci low density within the white matter. Limited evaluation for hemorrhage given the large amount of patient motion. A definite large hemorrhage is not seen. There is some apparent proptosis. Cervical spine: Anterolisthesis of C4 on 5. Degenerative changes throughout the cervical spine with multilevel central canal and neural foraminal stenosis with osteophyte formation at the vertebral body endplates with uncovertebral and facet hypertrophy. The lower cervical spine and upper thoracic spine is poorly evaluated secondary to artifact through the region. Mild loss of height of C7 and T1 vertebral bodies suspected. Groundglass opacities at lung apices. Enlarged lymph node in the right paratracheal region measuring up to approximately 13 mm short axis. IMPRESSION: 1. Large amount of patient motion limits evaluation of the brain. No midline shift is seen. If there is high clinical concern for intracranial injury it may be helpful to obtain a repeat exam when the patient can better tolerate. 2. Severe degenerative changes of the cervical spine with multilevel central canal neural foraminal stenosis with scoliotic curvature. The lower cervical spine and upper thoracic spine have a large amount of artifact through the region therefore not well evaluated. There is some suspected loss of height of the C7 and T1 vertebral bodies which could be from mild compression deformity of unknown age. Would correlate with symptoms in the region. 3. Enlarged lymph node right paratracheal region at superior mediastinum. Electronically signed by: Juan Ramon Boland MD (10/13/2018 12:11 AM) [facility]
[2018-10-13] MEDS ORDERED: HEPARIN 25,000UTS/500ML PREMIX 500 ML IV PRN (00:30)
[2018-10-13] MEDS ORDERED: ANTI-COAG MONITOR BY PHARMACY. MC PRN (00:30)
[2018-10-13] MEDS: CLINDAMYCIN 600MG PREMIX 50 ML IV SCH ×3 (00:43→15:06)
[2018-10-13] MEDS ORDERED: HEPARIN for IV BOLUS 10,000 UNIT/10 ML VIAL. IV ONE (01:00)
[2018-10-13 04:19] LABS: BASO # 0.1 x10^3/uL (0.0-0.2); BASO % 0 % (0-3); EOS # 0.2 x10^3/uL (0.0-0.7); EOS % 1 % (0-3); HEMATOCRIT 30.8 % (36.0-47.0); HEMOGLOBIN 10.1 g/dL (12.0-15.5); LYMPH % 6 % (24-48); MEAN CORPUSCULAR HEMOGLOBIN 29 pg (25-35); MEAN CORPUSCULAR HGB CONC 33 g/dL (31-37); MEAN CORPUSCULAR VOLUME 89 fL (79-100); MONO # 0.5 x10^3/uL (0.0-1.1); MONO % 3 % (0-9); NEUT # 16.1 x10^3uL (1.8-7.7); NEUT % 90 % (31-73); PLATELET COUNT 142 x10^3/uL (140-400); RED BLOOD COUNT 3.47 x10^6/uL (3.50-5.40); RED CELL DISTRIBUTION WIDTH 16.5 % (11.5-14.5); WHITE BLOOD COUNT 17.8 x10^3/uL (4.0-11.0)
[2018-10-13 04:24] LABS: ALBUMIN 2.2 g/dL (3.4-5.0); ALBUMIN/GLOBULIN RATIO 0.6 (1.0-1.7); CALCIUM 8.1 mg/dL (8.5-10.1); CREATININE 2.9 mg/dL (0.6-1.0); GFR 16.1; POTASSIUM 4.3 mmol/L (3.5-5.1); TOTAL BILIRUBIN 0.8 mg/dL (0.2-1.0); TOTAL PROTEIN 6.1 g/dL (6.4-8.2)
[2018-10-13] MEDS ORDERED: SODIUM BICARB ADULT 8.4% 50 MEQ/50 ML DISP.SYRIN. ONE (05:29)
[2018-10-13] MEDS ORDERED: HEPARIN for IV BOLUS 10,000 UNIT/10 ML VIAL. IV PRN (05:45)
--- NOTE | 2018-10-13 05:49 | RAD ---
EXAM: AP pelvis DATE: 10/12/2018 7:14 PM INDICATION: Fall COMPARISON: No Prior FINDINGS/ IMPRESSION: Moderate to large volume colonic stool content limits evaluation of the iliac wings and sacrum. Within these constraints no evidence for acute fracture or dislocation. No pubic symphysis or SI joint diastases. Electronically signed by: Leon Guthrie MD (10/13/2018 5:46 AM) [facility]
--- NOTE | 2018-10-13 05:50 | RAD ---
EXAM: AP View of the chest DATE: 10/12/2018 7:11 PM INDICATION: fall COMPARISON: 12/08/2017, 11/24/2017 FINDINGS: Moderate cardiomegaly. Atherosclerotic calcifications of the tortuous aorta are seen. Vague perihilar and lung base parenchymal airspace opacities are seen. No pleural effusion or pneumothorax. IMPRESSION: Bilateral parenchymal airspace opacities are favored to represent atelectasis. Moderate cardiomegaly. Electronically signed by: Leon Guthrie MD (10/13/2018 5:48 AM) [facility]
[2018-10-13] MEDS: HEPARIN 25,000UTS/500ML PREMIX 500 ML IV PRN ×2 (06:05→19:49)
--- NOTE | 2018-10-13 07:14 | NUR ---
The patient, LIZZIE TRONCOSO, 67 y/o, F admitted by CASSY JOHNS MD, was given written information regarding hospital policies, unit procedures and contact persons. Valuables were checked and admission assessment performed. pt is currently asleep, but awakes to voice. vss. pt is on 4LNC. currently titrating the insulin drip as blood glucose was 184. heparin drip infusing at this moment with the next PT scheduled at 1200. will ctm.
[2018-10-13] MEDS ORDERED: DEXTROSE 50% 25 GM / 50ML DISP.SYRIN. IV PRN (07:15)
--- NOTE | 2018-10-13 07:16 | NUR ---
At 0325 It was reported from Lab ([facility]) that the second set of troponin was 0.223. I reported to Toña Rivas RN, the patient's troponin level and she stated the patient was trending down and would continue with plan of care.
[2018-10-13] MEDS: VANCOMYCIN PER PHARMACY MC PRN (07:45)
--- NOTE | 2018-10-13 07:55 | NUR ---
Pharmacy Vancomycin Dosing Note S:Consulted to monitor and dose vancomycin started 10/12/18. O:LIZZIE TRONCOSO is a 67 year old F with UTI, . Height: 5 feet, 3 inches Weight: 146.574405 kg [employer] Body Weight: 52.40 Adjusted Body Weight: 90.04 Dosing Weight: Actual Other Antibiotics: CLINDAMYCIN 600MG IV Q8HR LABS: Last BUN: 34 Last Creatinine: 2.9 Creatinine Clearance: 26.39 Last WBC: 17.8 Vancomycin Dosing: Loading Dose: 2000 mg x1 Dosing Weight: Actual Target Trough: 10-20 A: Based on: Actual weight, renal function and indication P: 1. Begin Vancomycin 2000 mg IV q24h 2. Follow up Trough level on 10/14/18 at 2030 3. Pharmacy will continue to monitor, follow and adjust therapy as needed. AMANDA MOORE, 10/13/18 [id number]
[2018-10-13] MEDS: INSULIN LISPRO 300 UNITS/3 ML INSULN.PEN. SQ SCH ×4 (08:00→21:39)
[2018-10-13] MEDS: IPRATRPIUM/ALBUTEROL 0.5/2.5MG 3 ML NEBU. NEB SCH ×4 (08:00→20:21)
[2018-10-13] MEDS ORDERED: diphenhydrAMINE HCL 25 MG CAPSULE PO PRN (08:30)
[2018-10-13] MEDS: CARISOPRODOL 350 MG TABLET PO SCH ×2 (09:00→21:37)
[2018-10-13] MEDS: CARVEDILOL 6.25 MG TABLET PO SCH ×2 (09:00→16:27)
[2018-10-13] MEDS: LACTOBACILLUS RHAMNOSUS GG 1 CAPSULE. PO SCH ×2 (09:00→21:38)
[2018-10-13] MEDS: POTASSIUM CHLORIDE 20 MEQ TABLET.ER. PO SCH ×2 (09:00→21:38)
[2018-10-13] MEDS: PREGABALIN 75 MG CAPSULE PO SCH ×3 (09:00→21:36)
[2018-10-13] MEDS ORDERED: AZITHROMYCIN 250 MG PO SCH (09:00)
[2018-10-13] MEDS ORDERED: NON FORMULARY ITEM (Fluticasone/Salmeterol (Advair 100-50 Diskus) 1 PUFF) IH SCH (09:00)
[2018-10-13] MEDS ORDERED: IPRATRPIUM/ALBUTEROL 0.5/2.5MG 3 ML NEBU. NEB SCH (09:00)
[2018-10-13] MEDS: PIOGLITAZONE 15 MG TABLET. PO SCH (09:15)
[2018-10-13] MEDS: LACTULOSE 20 GM/30 ML SOLUTION. PO SCH (09:15)
[2018-10-13] MEDS: ASPIRIN 81 MG TAB.CHEW PO SCH ×2 (09:15→21:38)
[2018-10-13] MEDS: DOCUSATE SODIUM 100 MG CAPSULE PO SCH (09:15)
[2018-10-13] MEDS: BENZONATATE 100 MG CAPSULE. PO SCH ×3 (09:15→21:38)
[2018-10-13] MEDS: metFORMIN 500 MG TABLET PO SCH (09:15)
[2018-10-13] MEDS: SPIRONOLACTONE 25 MG TABLET PO SCH (09:15)
[2018-10-13] MEDS: FUROSEMIDE 40 MG TABLET PO SCH ×2 (09:15→16:24)
[2018-10-13] MEDS: hydrALAZINE 25 MG TABLET PO SCH ×2 (09:15→21:00)
[2018-10-13] MEDS ORDERED: ZOLPIDEM 5 MG TABLET. PO PRN (09:30)
[2018-10-13 10:28] LABS: THYROID STIM HORMONE (TSH) 9.77 uIU/mL (0.358-3.740)
[2018-10-13] MEDS: MORPHINE ER 30 MG TABLET.ER PO SCH ×2 (10:50→21:37)
--- NOTE | 2018-10-13 10:55 | RAD ---
Bilateral lower extremity venous ultrasound, : History: Bilateral leg pain Sonographic evaluation including grayscale, color flow and spectral Doppler analysis of the deep veins of the lower extremities was performed. The femoral and popliteal veins demonstrate normal compressibility and normal responses to distal augmentation maneuvers. Color imaging of those vessels shows no evidence of intraluminal clot. The visualized deep veins in both calves are patent. There was some limitations due to patient's body habitus. IMPRESSION: There is no sonographic evidence of deep vein thrombosis in either lower extremity. Electronically signed by: Hang Cain MD (10/13/2018 10:52 AM) [facility]
--- NOTE | 2018-10-13 10:59 | RAD ---
Duplex ultrasound the arteries of both lower extremities. HISTORY: Bilateral leg pain Real-time imaging, color flow imaging and Doppler were utilized to evaluate the arteries of the lower extremities. On the right side there is a normal triphasic flow at the common femoral with velocity 100 cm/s. Triphasic pattern continues throughout the right superficial femoral and popliteal arteries. There is a peak velocity of 62 cm/s in the right popliteal artery. There are triphasic flow patterns noted in the posterior tibial artery with a velocity of 58 cm/s distally. There is a triphasic pattern in the dorsalis pedis with a velocity of 83 cm/s. In the left lower extremity there is a normal triphasic pattern at the left common femoral artery with velocity of 76 cm/s. Triphasic pattern continues throughout the left superficial femoral artery to the popliteal artery. Peak velocity in the popliteal artery is a mildly decreased velocity at 39 cm/s but there is still a triphasic pattern. There is a triphasic pattern in the left posterior tibial artery with a velocity of 50 cm/s. There is a triphasic pattern in the left anterior tibial with velocity of 40 cm/s. There is some limitations due to patient's body habitus. IMPRESSION: 1. No evidence of severe arterial stenotic disease in the lower extremities. Electronically signed by: Hang Cain MD (10/13/2018 10:56 AM) [facility]
--- NOTE | 2018-10-13 13:26 | NUR ---
Allergies and reactions y INR BUN Cr Platelets y Blood culture done blood culture results y Order Verified y Consent signed y Previous PICC placement y Past Medical/Surgical history and current diagnosis reviewed Patient Medical /Surgical History Related to PICC line placement None Arrhythmias Septicemia/Bacteremia Special considerations for PICC line placement Anticoagulation therapy- heparin gtt Name of PICC Nurse Maia Fraga RN - PT requesting Left arm because that is where they put it before
--- NOTE | 2018-10-13 13:29 | NUR ---
Procedure: Following complete explanation of the PICC procedure including the indications, risks, and potential complications, informed consent was obtained. The possibility for infection was discussed along with signs, symptoms, and prevention. All the questions were answered. IV Device Protocol was used. Written and verbal patient education was provided. Hand hygiene performed. Standardized central line checklist was utilized. The patient was placed in the supine position, the arm was prepped with chlorhexidine and patient draped with maximum sterile barrier. 3 mL 1% lidocaine was infiltrated into the skin to provide local anesthesia. A thorough assessment of Left upper extremity completed. Using real-time ultrasound guidance and standardized micro puncture set, the bacilic vein was punctured and a peel away sheath was placed using the modified Seldinger technique. A tip location device was used to ensure adequate catheter placement. The catheter was secured using a securement device and an antimicrobial patch was applied directly on the insertion site followed by a transparent dressing.All ports withdraw blood and flush without resistance. Patient tolerated the procedure without apparent complication(s). Double Lumen Power PICC placement successful and uncomplicated. Placement verified by EKG tip confirmation system. Complications: Attempted cephalic vein due to depth of bacilic. Could not advance picc past shoulder. Had some bleeding when trochar removed. Bacilic was greater then 3 depth and hard to access. Successful and advanced easily. Pressure held times 2 minutes due to heparin gtt. 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
[2018-10-13] MEDS: HEPARIN for IV BOLUS 10,000 UNIT/10 ML VIAL. IV PRN (14:24)
[2018-10-13] MEDS: FAMOTIDINE 20 MG TABLET PO SCH (16:27)
[2018-10-13] MEDS ORDERED: INSULIN LISPRO 300 UNITS/3 ML INSULN.PEN. SQ ONE ×2 (17:15→21:30)
[2018-10-13] MEDS ORDERED: AMLO10TA8 PO (17:51)
[2018-10-13] MEDS ORDERED: MULT1TAB52 PO (17:51)
[2018-10-13] MEDS: MULTIVITAMIN with MINERAL TABLET. PO SCH (18:30)
--- NOTE | 2018-10-13 19:46 | HP ---
ADMIT DATE: 10/12/2018 HISTORY OF PRESENT ILLNESS: A 67-year-old female, long history of coronary artery disease, CHF, COPD, and alike; came in through the Emergency Room, apparently had been fell at home and also been running a fever for the last week or so, seems to be getting worse. The patient's family found her on the floor. The patient was brought in through the Emergency Room and has had multiple medical issues including elevated white count of over 19,000. Sed rate of 93, sugars in the 300s, lactic acids were elevated at 2.7, elevated troponins, elevated BNP of 12,000. TSH elevated at 99.7. D-dimer elevated. The patient was admitted for multiple medical issues, basically being septic along with having problems of congestive heart failure and alike. She had multiple scans done in the Emergency Room, which did not show anything broken. The patient was admitted for IV antibiotic therapy, Cardiology consultation, diuresis, and complication of multiple facts. PAST MEDICAL AND SURGICAL HISTORY : History of thyroid disease, congestive heart failure, hypercholesterolemia, sleep apnea, morbid obesity, lumpectomy, tubal ligation, hysterectomy, fibromyalgia, back pains, endocrine disorders, hypothyroidism, thyroid cancer, thyroidectomy, depression, influenza and pneumococcal up-to-date. FAMILY HISTORY: Both father and mother had heart disease and history of stroke. ALLERGIES: PENICILLIN, SULFUR, CEPHALEXIN, CODEINE, LEVOTHYROXINE, PRILOSEC, and VALSARTAN. Reconcile of meds were done in the chart. Please see those that were updated in the chart. REVIEW OF SYSTEMS: Increased shortness of breath. General achiness from falling. The patient otherwise unremarkable there. PHYSICAL EXAMINATION: GENERAL: This is an overweight white female looking in moderate amount of distress. VITAL SIGNS: Blood pressure 88/42, respiratory rate 18, pulse 65, afebrile, oxygen saturation 95% on 3 liters. HEENT: The patient's head was atraumatic, normocephalic. Eyes: PERRLA without jaundice. The patient has some bruising on her arms and legs. LUNGS: Diminished with rales in the bases. CARDIOVASCULAR: Regular sinus rhythm. PMI laterally displaced. RESPIRATORY: The lungs show expiratory wheezes and rhonchi and crackles. Diminished breath sounds. ABDOMEN: Markedly protuberant. Soft, diffuse tenderness. No rebounding or guarding. Positive bowel sounds, markedly obese. EXTREMITIES: No clubbing, cyanosis, +2 pitting edema. Pulses noted distally. NEUROLOGIC: The patient is actually alert and oriented. Speech fluent and spontaneous, appropriate. Cranial nerves 2-12 grossly intact. The patient otherwise somewhat anxious, but other than that seemed to be fairly intact. 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 The patient will be admitted, placed on IV antibiotic therapy, placed in the ICU for close monitoring and make further evaluation. Consult with Cardiology for their expertise in this area as well. CASSY JOHNS MD DR: NORMA/noemi JOB#: [id number] / [id number]
--- NOTE | 2018-10-13 19:57 | NUR ---
Young from lab called this nurse to let me know that their machine is not working correctly and cannot get a read for the PTT and it has to be sent out at this time to [facility].
[2018-10-13] MEDS: BUDESONIDE 0.5 MG/2 ML NEBU NEB SCH (20:21)
[2018-10-13] MEDS: VANCOMYCIN 2 GM in IV NORMAL SALINE 500ML 500 ML IV SCH (21:36)
[2018-10-13] MEDS: ATORVASTATIN CALCIUM 20 MG TABLET PO SCH (21:37)
[2018-10-13] MEDS: GABAPENTIN 300 MG CAPSULE. PO SCH (21:37)
[2018-10-13] MEDS: ZOLPIDEM 5 MG TABLET. PO SCH (21:38)
--- NOTE | 2018-10-13 22:05 | NUR ---
[facility] from lab talked to [facility] and they are having the same issue with reading the ptt.
[2018-10-14] VITALS (10 sets, daily range): BP systolic 99–177; BP diastolic 56–98
[2018-10-14] MEDS: CLINDAMYCIN 600MG PREMIX 50 ML IV SCH ×4 (00:11→23:59)
[2018-10-14] MEDS: IPRATRPIUM/ALBUTEROL 0.5/2.5MG 3 ML NEBU. NEB SCH ×2 (05:07→09:40)
[2018-10-14] MEDS: LEVOTHYROXINE 50 MCG TABLET PO SCH (06:08)
[2018-10-14 07:03] LABS: BASO # 0.1 x10^3/uL (0.0-0.2); BASO % 1 % (0-3); EOS # 0.1 x10^3/uL (0.0-0.7); EOS % 1 % (0-3); HEMATOCRIT 31.3 % (36.0-47.0); HEMOGLOBIN 10.1 g/dL (12.0-15.5); LYMPH # 0.9 x10^3/uL (1.0-4.8); LYMPH % 8 % (24-48); MEAN CORPUSCULAR HEMOGLOBIN 29 pg (25-35); MEAN CORPUSCULAR HGB CONC 32 g/dL (31-37); MEAN CORPUSCULAR VOLUME 90 fL (79-100); MONO # 0.5 x10^3/uL (0.0-1.1); MONO % 4 % (0-9); NEUT # 10.4 x10^3uL (1.8-7.7); NEUT % 87 % (31-73); PLATELET COUNT 127 x10^3/uL (140-400); RED BLOOD COUNT 3.49 x10^6/uL (3.50-5.40); RED CELL DISTRIBUTION WIDTH 17.4 % (11.5-14.5)
[2018-10-14 07:11] LABS: CALCIUM 7.7 mg/dL (8.5-10.1); CREATININE 2.2 mg/dL (0.6-1.0); GFR 22.2; POTASSIUM 4.5 mmol/L (3.5-5.1)
[2018-10-14] MEDS: HEPARIN for IV BOLUS 10,000 UNIT/10 ML VIAL. IV PRN (07:23)
[2018-10-14] MEDS: OMEGA-3 FATTY ACIDS/FISH OIL 1,000 MG CAPSULE. PO SCH (08:51)
[2018-10-14] MEDS: metFORMIN 500 MG TABLET PO SCH (08:51)
[2018-10-14] MEDS: hydrALAZINE 25 MG TABLET PO SCH ×2 (08:51→21:33)
[2018-10-14] MEDS: SPIRONOLACTONE 25 MG TABLET PO SCH (08:51)
[2018-10-14] MEDS: DOCUSATE SODIUM 100 MG CAPSULE PO SCH (08:51)
[2018-10-14] MEDS: PREGABALIN 75 MG CAPSULE PO SCH ×3 (08:51→21:33)
[2018-10-14] MEDS: LACTOBACILLUS RHAMNOSUS GG 1 CAPSULE. PO SCH ×2 (08:52→21:35)
[2018-10-14] MEDS: FUROSEMIDE 40 MG TABLET PO SCH ×2 (08:52→16:11)
[2018-10-14] MEDS: POTASSIUM CHLORIDE 20 MEQ TABLET.ER. PO SCH ×2 (08:52→21:34)
[2018-10-14] MEDS: MULTIVITAMIN with MINERAL TABLET. PO SCH (08:52)
[2018-10-14] MEDS: ASPIRIN 81 MG TAB.CHEW PO SCH ×2 (08:52→21:34)
[2018-10-14] MEDS: CARVEDILOL 6.25 MG TABLET PO SCH ×2 (08:52→17:38)
[2018-10-14] MEDS: BENZONATATE 100 MG CAPSULE. PO SCH ×3 (08:52→21:33)
[2018-10-14] MEDS: LACTULOSE 20 GM/30 ML SOLUTION. PO SCH (08:53)
[2018-10-14] MEDS: PIOGLITAZONE 15 MG TABLET. PO SCH (08:53)
[2018-10-14] MEDS: CARISOPRODOL 350 MG TABLET PO SCH ×2 (08:53→21:34)
[2018-10-14] MEDS: amLODIPine BESYLATE 10 MG TABLET PO SCH ×2 (09:00→21:40)
[2018-10-14] MEDS: MORPHINE ER 30 MG TABLET.ER PO SCH ×2 (09:00→21:34)
--- NOTE | 2018-10-14 09:23 | PDOC ---
PROVIDER NOTE PROVIDER NOTE PROVIDER NOTE Full note dictated: #[id number] Patient with elevated trops due to fall/rhabdo. Chronic diastolic HF. After renal function stable, will start aggressive diuresis in a.m with IV diuretics. Needs rehab. Supportive care. Thanks KELY LEON MD Oct 14, 2018 09:23
[2018-10-14] MEDS: BUDESONIDE 0.5 MG/2 ML NEBU NEB SCH ×2 (09:39→20:22)
--- NOTE | 2018-10-14 11:15 | CONS ---
DATE OF CONSULTATION: 10/14/2018 REASON FOR CONSULTATION: Elevated troponin. HISTORY OF PRESENT ILLNESS: The patient is a 67-year-old woman with past medical history as noted below, who comes into the hospital in the setting of being found down for several hours. She apparently was in her usual state of health until few days ago when she began to have some fevers and overall was doing poorly and ultimately was on the floor for several hours and she lives alone and therefore it took some time for somebody to find her and apparently when brought to the ER she was noted to have multisystem organ failure and admitted for further evaluation and treatment. In speaking with the patient, at baseline, she is limited, mostly because of her morbid obesity and chronic diastolic heart failure and nonetheless is able to perform ADLs with mild to moderate difficulty. She denies any prior history of coronary artery disease, but does have known diastolic heart failure. She denies any recent syncope, palpitations, orthopnea, or PND. She does not recall any recent cardiac interventions. In the ER, various imaging modalities including lower extremity arterial studies and venous studies were unremarkable and head CT was also unremarkable for any acute pathology. Due to mildly elevated troponin she was started on heparin drip. PAST MEDICAL HISTORY: 1. Morbid obesity. 2. Diastolic heart failure. 3. Chronic kidney disease stage 3. 4. Obstructive sleep apnea. 5. Hypertension. 6. Dyslipidemia. 7. Chronic narcotic abuse. 8. Chronic bilateral venous insufficiency with venous stasis changes. SOCIAL HISTORY: The patient lives by herself. Denies any alcohol, tobacco or illicit drug use. ALLERGIES: PENICILLINS, SULFA, MULTIPLE OTHER ANTIBIOTICS, OMEPRAZOLE and VALSARTAN. CURRENT CARDIOVASCULAR MEDICATIONS: 1. Amlodipine 10 mg daily. 2. Fish oil 4000 mg daily. 3. Atorvastatin 20 mg daily. 4. Spironolactone 25 mg daily. 5. Hydralazine 25 mg p.o. b.i.d. 6. Lasix 40 mg p.o. b.i.d. 7. Aspirin 81 mg daily. 8. Carvedilol 6.25 mg b.i.d. 9. Heparin drip. REVIEW OF SYSTEMS: As noted above in HPI. PHYSICAL EXAMINATION: VITAL SIGNS: Afebrile, 85, 22, 126/58, 96% on room air. GENERAL: She appears overall frustrated and disheveled. HEAD AND NECK: Notable for thick large neck. Neck veins were difficult to visualize. CARDIAC: Regular rate and rhythm without any obvious murmurs, rubs or gallops. Heart sounds are distant. LUNGS: Notable for right lower basilar rales. ABDOMEN: Obese, protuberant, nontender. EXTREMITIES: Lower extremities are notable for chronic bilateral 2+ venous insufficiency and edema. NEUROLOGIC: No focal deficits. DIAGNOSTIC STUDIES: Creatinine initially elevated 3.2 and now down trending at 2.2. Hemoglobin at 10.1, mildly decreased from the past. Platelet count of 127. INITIAL BNP was greater than 12,000. Initial troponin at 0.47, now down trending to 0.136. Glucose initially at 499 with mild lactic acidosis at 2.7. The patient also had mild to moderate transaminitis. Lipid panel reveals an LDL of 15 and an HDL of 7 with total cholesterol of 61 and triglyceride level of 195. TSH is elevated at 9.7. Blood gas initially revealed a pH of 7.3, pCO2 of 54, pO2 of 68 with bicarbonate of 26. Echocardiogram in 2017 reveals normal ejection fraction with mild pulmonary hypertension. EKG upon arrival revealed sinus rhythm with diffuse T-wave inversions. IMPRESSION: 1. Acute metabolic derangements, likely secondary to significant comorbidities. a. Her fall and inability to get up likely resulted from possible infectious pathology and she ultimately presented with what appears to be rhabdomyolysis. b. Acute on chronic diastolic heart failure with an elevated BNP. 2. Known history of hypertension, currently well controlled. 3. Dyslipidemia. 4. Morbid obesity with obstructive sleep apnea. RECOMMENDATIONS: 1. Elevated troponin, likely secondary to type 2 non-STEMI due to decompensated diastolic heart failure in the setting of multiorgan system failure. Would stop heparin drip for now. Check EKG. 2. We will obtain an echocardiogram. 3. It is difficult to diurese her in light of her recent renal failure. Continue optimization of her renal function and then she will need wound care consultation and lymphedema consultation and ultimately continue oral diuretics with hope to achieve euvolemia in the near future. Thank you for this consultation. KELY LEON MD DR: REFUGIO/noemi JOB#: [id number] / [id number]
[2018-10-14] MEDS ORDERED: BISACODYL 10 MG SUPP.RECT PR PRN (11:30)
[2018-10-14] MEDS: INSULIN LISPRO 300 UNITS/3 ML INSULN.PEN. SQ SCH ×3 (12:26→21:42)
--- NOTE | 2018-10-14 12:50 | RAD ---
CT of the chest without contrast. HISTORY: Seizure, short of air Axial CT images were obtained to the chest. Sagittal and coronal reconstructed images were reviewed. There is a PICC line on the left extending to the superior vena cava. There is no mediastinal adenopathy. There is a trace of pleural effusion on each side. There is mild atelectasis in the lung bases. There is a 4 mm nodule on image #33 of series 2 in the right lung. Right lung nodule was not evident on the CT from May 2018. Close interval follow-up in 3 months would be recommended. There is a 3 mm nodule in the medial left upper lobe on image #22 along the mediastinum which was not evident on the old study. There are no other acute infiltrates. Metastatic disease could have this pattern or granulomatous disease. A bony destructive process is not identified. IMPRESSION: 1. Small pleural effusions with mild basilar atelectasis. 2. Small pulmonary nodules Electronically signed by: Hang Cain MD (10/14/2018 12:47 PM) [facility]
[2018-10-14] MEDS: HEPARIN for SUB-Q USE 5,000 UNIT/ML VIAL. SQ SCH ×2 (14:14→21:42)
[2018-10-14] MEDS: FAMOTIDINE 20 MG TABLET PO SCH (17:38)
[2018-10-14] MEDS ORDERED: VANCOMYCIN 2 GM in IV NORMAL SALINE 500ML 500 ML IV SCH (21:30)
[2018-10-14] MEDS: ATORVASTATIN CALCIUM 20 MG TABLET PO SCH (21:33)
[2018-10-14] MEDS: GABAPENTIN 300 MG CAPSULE. PO SCH (21:34)
[2018-10-14] MEDS: ZOLPIDEM 5 MG TABLET. PO SCH (21:35)
[2018-10-14] MEDS: VANCOMYCIN 2 GM in IV NORMAL SALINE 500ML 500 ML IV SCH (21:36)
[2018-10-14] MEDS: INSULIN GLARGINE 300 UNITS/3 ML INSULN.PEN. SQ SCH (21:41)
[2018-10-14 21:46] LABS: VANC TR 19.8 mcg/mL (10.0-20.0)
[2018-10-15] VITALS (10 sets, daily range): BP systolic 118–185; BP diastolic 65–86
[2018-10-15] MEDS: HEPARIN for SUB-Q USE 5,000 UNIT/ML VIAL. SQ SCH ×3 (06:21→21:15)
[2018-10-15] MEDS: CLINDAMYCIN 600MG PREMIX 50 ML IV SCH (06:22)
[2018-10-15] MEDS: LEVOTHYROXINE 50 MCG TABLET PO SCH (06:22)
[2018-10-15 06:59] LABS: BASO % 0 % (0-3); EOS # 0.1 x10^3/uL (0.0-0.7); EOS % 1 % (0-3); HEMATOCRIT 31.9 % (36.0-47.0); HEMOGLOBIN 10.4 g/dL (12.0-15.5); LYMPH # 0.8 x10^3/uL (1.0-4.8); LYMPH % 9 % (24-48); MEAN CORPUSCULAR HEMOGLOBIN 29 pg (25-35); MEAN CORPUSCULAR HGB CONC 33 g/dL (31-37); MEAN CORPUSCULAR VOLUME 89 fL (79-100); MONO # 0.5 x10^3/uL (0.0-1.1); MONO % 6 % (0-9); NEUT % 85 % (31-73); PLATELET COUNT 117 x10^3/uL (140-400); RED BLOOD COUNT 3.57 x10^6/uL (3.50-5.40); RED CELL DISTRIBUTION WIDTH 16.8 % (11.5-14.5); WHITE BLOOD COUNT 9.4 x10^3/uL (4.0-11.0)
[2018-10-15 07:12] LABS: CALCIUM 8.3 mg/dL (8.5-10.1); CREATININE 1.6 mg/dL (0.6-1.0); GFR 32.1; POTASSIUM 4.7 mmol/L (3.5-5.1)
[2018-10-15] MEDS: LACTULOSE 20 GM/30 ML SOLUTION. PO SCH (08:10)
[2018-10-15] MEDS: ASPIRIN 81 MG TAB.CHEW PO SCH ×2 (08:10→21:00)
[2018-10-15] MEDS: PIOGLITAZONE 15 MG TABLET. PO SCH (08:10)
[2018-10-15] MEDS: FUROSEMIDE 40 MG TABLET PO SCH ×2 (08:11→16:12)
[2018-10-15] MEDS: CARISOPRODOL 350 MG TABLET PO SCH ×2 (08:11→21:24)
[2018-10-15] MEDS: CARVEDILOL 6.25 MG TABLET PO SCH ×2 (08:11→17:00)
[2018-10-15] MEDS: BENZONATATE 100 MG CAPSULE. PO SCH (08:11)
[2018-10-15] MEDS: OMEGA-3 FATTY ACIDS/FISH OIL 1,000 MG CAPSULE. PO SCH (08:11)
[2018-10-15] MEDS: PREGABALIN 75 MG CAPSULE PO SCH ×3 (08:11→21:25)
[2018-10-15] MEDS: LACTOBACILLUS RHAMNOSUS GG 1 CAPSULE. PO SCH ×2 (08:12→21:22)
[2018-10-15] MEDS: SPIRONOLACTONE 25 MG TABLET PO SCH (08:12)
[2018-10-15] MEDS: MULTIVITAMIN with MINERAL TABLET. PO SCH (08:12)
[2018-10-15] MEDS: hydrALAZINE 25 MG TABLET PO SCH ×3 (08:12→21:26)
[2018-10-15] MEDS: POTASSIUM CHLORIDE 20 MEQ TABLET.ER. PO SCH ×3 (08:12→21:24)
[2018-10-15] MEDS: MORPHINE ER 30 MG TABLET.ER PO SCH ×2 (08:12→21:24)
[2018-10-15] MEDS: DOCUSATE SODIUM 100 MG CAPSULE PO SCH (08:12)
[2018-10-15 08:24] LABS: % BANDS 5 % (0-9); % LYMPHS 7 % (24-48); % MONOS 4 % (0-10); % MYELOS 1 % (0-0); % SEGS 83 % (35-66); ANISOCYTOSIS SLIGHT; PLT ESTIMATE DECREASED (ADEQUATE); POLYCHROMASIA SLIGHT
[2018-10-15 08:26] LABS: OVALOCYTES OCC; TOXIC GRANULATION PRESENT
[2018-10-15] MEDS: INSULIN LISPRO 300 UNITS/3 ML INSULN.PEN. SQ SCH ×4 (08:31→21:16)
[2018-10-15] MEDS: VANCOMYCIN PER PHARMACY MC PRN (08:35)
--- NOTE | 2018-10-15 08:36 | NUR ---
Pharmacy Vancomycin Dosing Note S:Consulted to monitor and dose vancomycin started 10/12/18. O:LIZZIE TRONCOSO is a 67 year old F with Sepsis UTI Height: 5 feet, 3 inches Weight: 149.664622 kg [place] Body Weight: 52.40 Adjusted Body Weight: 91.24 Dosing Weight: Actual Other Antibiotics: CLINDAMYCIN 600MG IV Q8HR LABS: Last BUN: 28 Last Creatinine: 1.6 Creatinine Clearance: 48.5 Last WBC: 9.4 Last Procalcitonin: Tmax (past 24 hours): Microbiology: GRAM NEGATIVE RODS IN BLOOD Drug Levels: Last Trough level: 19.8 on 10/14/18 at 2030 Last dose given 10/14/18 at 2100 Vancomycin Dosing: Loading Dose: 2000 mg x1 Dosing Weight: Actual Target Trough: 15-20 A: Based on the vanco trough of 19.8 and improving renal function, we will continue the same dose and frequency and recheck the trough in 48hrs. P: 1. Continue Vancomycin 2000 mg IV q24h 2. Follow up Trough level on 10/16/18 at 2030 3. Pharmacy will continue to monitor, follow and adjust therapy as needed. HUEY DUNAWAY [facility] 10/15/18 [id number]
[2018-10-15] MEDS ORDERED: BENZONATATE 100 MG CAPSULE. PO PRN (09:00)
--- NOTE | 2018-10-15 09:01 | NUR ---
PT moaning in pain today. PT saying that her back is hurting 10/10.PT can not get comfortable in bed. Tried to reposition numerous times with no relief. PT given waqas Morphine, soma, lyrica. Pt is able to verbalize understanding of poc. Luis A IVAN
--- NOTE | 2018-10-15 09:13 | NUR ---
When pt got pt up, pt has large, firm red area R upper back. Picture taken and placed in chart Aurelia IVAN
--- NOTE | 2018-10-15 09:27 | PDOC ---
PROGRESS NOTES Diagnosis Problem Problems Medical Problems: (1) Dyspnea Status: Acute Assessment Problems Medical Problems: (1) Dyspnea Status: Acute 1. NSTEMI - type 2. Await echo. 2. acute on chronic hypoxic, hypercapnic respiratory insufficiency, multifactorial acute on chronic heart failure, diastolic - continue oral lasix. PHTN - await echo 3. Sepsis with lactic acidosis - on antibiotics, per pcp 4. rhabdomyolysis - repeat CK 5. hypertension - fair control on current medications 6. ARF on CKD stage 3 - Cr normalizing 7. chronic pain syndrome with long history of narcotic dependancy - ? experiencing some withdrawal symptoms currently 8. diabetes mellitus - per PCP 9. protein malnutrition Subjective c/o "hurts all over", breathing easy but c/o cough, no palpitations, lightheadedness Objective Vital Signs Date Time Temp Pulse Resp B/P (MAP) Pulse Ox O2 Delivery O2 Flow Rate FiO2 10/15/18 08:12 Nasal Cannula 10/15/18 08:12 145/68 10/15/18 08:00 4.0 10/15/18 06:52 91 24 96 10/14/18 22:00 97.4 Intake and Output 10/15/18 06:59 Intake Total 600 ml Output Total 6800 ml Balance -6200 ml Intake Oral 600 ml Output Urine Total 6800 ml Physical Exam gen: awake, alert, moderate distress CV: RRR, no gallops, clicks or rubs Lungs: decreased bases abd: soft, +bowel sounds Lower ext: +2 chronic edema bilaterally Review of Relevant I have reviewed the following items tashi (where applicable) has been applied. Labs Laboratory Tests Test 10/13/18 11:40 10/13/18 13:09 10/13/18 16:41 10/13/18 18:00 Glucose (Fingerstick) 329 mg/dL (70-99) 431 mg/dL (70-99) Prothrombin Time 11.0 SEC (9.4-11.4) Prothromb Time International Ratio 1.1 (0.9-1.1) Activated Partial Thromboplast Time 37 SEC (23-33) > 130 SEC (23-33) Test 10/13/18 20:59 10/14/18 06:15 10/14/18 07:51 10/14/18 11:53 Glucose (Fingerstick) 424 mg/dL (70-99) 381 mg/dL (70-99) 405 mg/dL (70-99) White Blood Count 12.0 x10^3/uL (4.0-11.0) Red Blood Count 3.49 x10^6/uL (3.50-5.40) Hemoglobin 10.1 g/dL (12.0-15.5) Hematocrit 31.3 % (36.0-47.0) Mean Corpuscular Volume 90 fL (79-100) Mean Corpuscular Hemoglobin 29 pg (25-35) Mean Corpuscular Hemoglobin Concent 32 g/dL (31-37) Red Cell Distribution Width 17.4 % (11.5-14.5) Platelet Count 127 x10^3/uL (140-400) Neutrophils (%) (Auto) 87 % (31-73) Lymphocytes (%) (Auto) 8 % (24-48) Monocytes (%) (Auto) 4 % (0-9) Eosinophils (%) (Auto) 1 % (0-3) Basophils (%) (Auto) 1 % (0-3) Neutrophils # (Auto) 10.4 x10^3uL (1.8-7.7) Lymphocytes # (Auto) 0.9 x10^3/uL (1.0-4.8) Monocytes # (Auto) 0.5 x10^3/uL (0.0-1.1) Eosinophils # (Auto) 0.1 x10^3/uL (0.0-0.7) Basophils # (Auto) 0.1 x10^3/uL (0.0-0.2) Activated Partial Thromboplast Time 36 SEC (23-33) Sodium Level 130 mmol/L (136-145) Potassium Level 4.5 mmol/L (3.5-5.1) Chloride Level 93 mmol/L (98-107) Carbon Dioxide Level 30 mmol/L (21-32) Anion Gap 7 (6-14) Blood Urea Nitrogen 38 mg/dL (7-20) Creatinine 2.2 mg/dL (0.6-1.0) Estimated GFR (Cockcroft-Gault) 22.2 Glucose Level 385 mg/dL (70-99) Calcium Level 7.7 mg/dL (8.5-10.1) Test 10/14/18 16:50 10/14/18 20:01 10/14/18 21:15 10/15/18 06:35 Glucose (Fingerstick) 456 mg/dL (70-99) 420 mg/dL (70-99) Vancomycin Level Trough 19.8 mcg/mL (10.0-20.0) Vancomycin Last Dose Date 10/13/18 Vancomycin Last Dose Time 2100 White Blood Count 9.4 x10^3/uL (4.0-11.0) Red Blood Count 3.57 x10^6/uL (3.50-5.40) Hemoglobin 10.4 g/dL (12.0-15.5) Hematocrit 31.9 % (36.0-47.0) Mean Corpuscular Volume 89 fL (79-100) Mean Corpuscular Hemoglobin 29 pg (25-35) Mean Corpuscular Hemoglobin Concent 33 g/dL (31-37) Red Cell Distribution Width 16.8 % (11.5-14.5) Platelet Count 117 x10^3/uL (140-400) Neutrophils (%) (Auto) 85 % (31-73) Lymphocytes (%) (Auto) 9 % (24-48) Monocytes (%) (Auto) 6 % (0-9) Eosinophils (%) (Auto) 1 % (0-3) Basophils (%) (Auto) 0 % (0-3) Neutrophils # (Auto) 8.0 x10^3uL (1.8-7.7) Lymphocytes # (Auto) 0.8 x10^3/uL (1.0-4.8) Monocytes # (Auto) 0.5 x10^3/uL (0.0-1.1) Eosinophils # (Auto) 0.1 x10^3/uL (0.0-0.7) Basophils # (Auto) 0.0 x10^3/uL (0.0-0.2) Segmented Neutrophils % 83 % (35-66) Band Neutrophils % 5 % (0-9) Lymphocytes % 7 % (24-48) Monocytes % 4 % (0-10) Myelocytes % 1 % (0-0) Toxic Granulation Present Platelet Estimate Decreased (ADEQUATE) Large Platelets Occ Polychromasia Slight Basophilic Stippling Present Anisocytosis Slight Ovalocytes Occ Sodium Level 133 mmol/L (136-145) Potassium Level 4.7 mmol/L (3.5-5.1) Chloride Level 96 mmol/L (98-107) Carbon Dioxide Level 33 mmol/L (21-32) Anion Gap 4 (6-14) Blood Urea Nitrogen 28 mg/dL (7-20) Creatinine 1.6 mg/dL (0.6-1.0) Estimated GFR (Cockcroft-Gault) 32.1 Glucose Level 289 mg/dL (70-99) Calcium Level 8.3 mg/dL (8.5-10.1) Microbiology 10/12/18 Blood Culture - Final, Complete Medications Current Medications Aspirin (Children'S Aspirin) 324 mg 1X ONCE PO Last administered on 10/12/18at 19:15; Start 10/12/18 at 19:15; Stop 10/12/18 at 19:16; Status DC Lactated Ringer's 1,000 ml @ 100 mls/hr Q10H IV Last administered on at 00:44; Start 10/12/18 at 19:04; Stop 10/13/18 at 05:03; Status DC Albuterol/ Ipratropium (Duoneb) 3 ml 1X ONCE NEB Last administered on at 20:20; Start 10/12/18 at 19:15; Stop 10/12/18 at 19:16; Status DC Sodium Chloride 1,000 ml @ 1,000 mls/hr 1X ONCE IV Last administered on at 19:59; Start 10/12/18 at 19:15; Stop 10/12/18 at 20:14; Status DC Insulin Human Regular 150 unit/ Sodium Chloride 151.5 ml @ 0 mls/hr 1X ONCE IV Last administered on 10/12/18at 19:58; Start 10/12/18 at 19:15; Stop at 19:21; Status DC Vancomycin HCl 1 gm/Sodium Chloride 250 ml @ 250 mls/hr 1X ONCE IV ; Start 06/20 at 21:00; Stop 10/12/18 at 21:59; Status UNV Vancomycin HCl 2 gm/Sodium Chloride 500 ml @ 250 mls/hr 1X ONCE IV Last administered on 10/12/18at 21:27; Start 10/12/18 at 21:30; Stop 10/12/18 at 23:29 ; Status DC Vancomycin HCl (Vanco Per Pharmacy) 1 each PRN DAILY PRN MC SEE COMMENTS Last administered on 10/15/18at 08:35; Start 10/12/18 at 21:00 Ondansetron HCl (Zofran) 4 mg PRN Q4HRS PRN IV NAUSEA/VOMITING; Start 10/12/18 at 21:00; Stop 10/13/18 at 20:59; Status DC Albuterol/ Ipratropium (Duoneb) 3 ml RTQID NEB Last administered on 10/14/18at 09:40; Start 10/13/18 at 08:00; Stop 10/14/18 at 07:59; Status DC Aspirin (Children'S Aspirin) 81 mg 1X ONCE PO ; Start 10/12/18 at 21:00; Stop 10/12/18 at 21:01; Status DC Multivitamins/ Minerals 10 ml/ Folic Acid 1 mg/ Thiamine HCl 100 mg/Sodium Chloride 1,011.1 ml @ 1,000 mls/ hr 1X ONCE IV Last administered on at 02:30; Start 10/12/18 at 21:00; Stop 10/12/18 at 22:00; Status DC Sodium Chloride 1,000 ml @ 1,000 mls/hr 1X ONCE IV ; Start 10/12/18 at 21:15; Stop 10/12/18 at 22:14; Status DC Clindamycin Phosphate (Cleocin) 300 mg 1X ONCE IM ; Start 10/12/18 at 21:15; Stop 10/12/18 at 21:22; Status DC Clindamycin Phosphate 50 ml @ 100 mls/hr Q8HRS IV Last administered on at 06:22; Start 10/12/18 at 22:00; Stop 10/15/18 at 09:18; Status DC Insulin Human Regular 150 unit/ Sodium Chloride 151.5 ml @ 0 mls/hr 1X ONCE IV Last administered on 10/12/18at 02:05; Start 10/12/18 at 21:30; Stop at 21:31; Status DC Albuterol/ Ipratropium (Duoneb) 3 ml QID NEB ; Start 10/13/18 at 09:00; Stop at 09:00; Status DC Sodium Bicarbonate (Sodium Bicarb Adult 8.4% Syr) 50 meq 1X ONCE IV Last administered on 10/13/18at 05:58; Start 10/12/18 at 21:45; Stop 10/12/18 at 21:46 ; Status DC Furosemide (Lasix) 40 mg 1X ONCE IVP Last administered on 10/13/18at 00:43; Start 10/12/18 at 21:45; Stop 10/12/18 at 21:46; Status DC Lorazepam (Ativan) 2 mg 1X PRN PRN IV seizure; Start 10/12/18 at 21:45 Vancomycin HCl 2 gm/Sodium Chloride 500 ml @ 250 mls/hr Q48H IV ; Start at 21:30; Stop 10/14/18 at 21:30; Status DC Vancomycin HCl (Vancomycin Trough Level) 1 each 1X ONCE MC Last administered on 10/14/18at 20:30; Start 10/14/18 at 20:30; Stop 10/14/18 at 20:31; Status DC Heparin Sodium (Porcine) (Heparin Sodium) 4,000 unit 1X ONCE IV Last administered on 10/13/18at 00:49; Start 10/13/18 at 01:00; Stop 10/13/18 at 01:01 ; Status DC Heparin Sodium/ Dextrose 500 ml @ 0 mls/hr CONT PRN IV SEE I/O RECORD; Start at 00:30; Status Cancel Info (Anti-Coagulation Monitoring By Pharmacy) 1 each PRN DAILY PRN MC SEE COMMENTS; Start 10/13/18 at 00:30; Status Cancel Sodium Bicarbonate (Sodium Bicarb Adult 8.4% Syr) 50 meq STK-MED ONCE .ROUTE ; Start 10/13/18 at 05:29; Stop 10/13/18 at 05:30; Status DC Heparin Sodium/ Dextrose 500 ml @ 0 mls/hr CONT PRN IV SEE I/O RECORD Last administered on 10/13/18at 19:49; Start 10/13/18 at 05:45; Stop 10/14/18 at 13:28 ; Status DC Heparin Sodium (Porcine) (Heparin Sodium) 2,000 unit PRN Q6HRS PRN IV FOLLOW PROTOCOL GUIDELINES; Start 10/13/18 at 05:45; Stop 10/14/18 at 13:28; Status DC Heparin Sodium (Porcine) (Heparin Sodium) 1,000 unit PRN Q6HRS PRN IV FOLLOW PROTOCOL GUIDELINES Last administered on 10/14/18 07:23; Start 10/13/18 at 05: 45; Stop 10/14/18 at 17:37; Status DC Insulin Human Lispro (HumaLOG) 0-7 UNITS TIDWMEALS SQ Last administered on 10/13 17:17; Start 10/13/18 at 08:00; Stop 10/13/18 at 21:24; Status DC Dextrose 12.5 gm PRN Q15MIN PRN IV SEE COMMENTS; Start 10/13/18 at 07:15 Lactobacillus Rhamnosus (Culturelle) 1 cap BID PO Last administered on 08:12; Start 10/13/18 at 09:00 Vancomycin HCl 2 gm/Sodium Chloride 500 ml @ 250 mls/hr Q24H IV Last administered on 10/14/18 21:36; Start 10/13/18 at 21:00 Carisoprodol (Soma) 175 mg QHS PO Last administered on 10/14/18 21:34; Start 10/13/18 at 21:00 Carisoprodol (Soma) 350 mg DAILY PO Last administered on 10/15/18 08:11; Start 10/13/18 at 09:00 Carvedilol (Coreg) 6.25 mg BIDWMEALS PO Last administered on 10/15/18 08:11; Start 10/13/18 at 09:00 Diphenhydramine HCl (Benadryl) 25 mg PRN Q6HRS PRN PO ITCHING; Start 10/13/18 at 08:30 Potassium Chloride (Klor-Con) 20 meq BID PO Last administered on 10/15/18 08: 12; Start 10/13/18 at 09:00 Pregabalin (Lyrica) 75 mg TID PO Last administered on 10/15/18 08:11; Start at 09:00 Atorvastatin Calcium (Lipitor) 20 mg QHS PO Last administered on 10/14/18 21: 33; Start 10/13/18 at 21:00 Aspirin (Children'S Aspirin) 81 mg BID PO Last administered on 10/15/18 08:10 ; Start 10/13/18 at 09:15 Non-Formulary Medication (Azithromycin (Zithromax)) 250 mg DAILY PO ; Start at 09:00; Stop 10/13/18 at 18:28; Status DC Benzonatate (Tessalon Perle) 100 mg [id number] PO Last administered on 10/14/18 21 :33; Start 10/13/18 at 09:15; Stop 10/15/18 at 08:57; Status DC Docusate Sodium (Colace) 100 mg DAILY PO Last administered on 10/15/18 08:12; Start 10/13/18 at 09:15 Fish Oil (Fish Oil) 4,000 mg DAILY PO Last administered on 10/14/18 08:51; Start 10/14/18 at 09:00; Stop 10/15/18 at 08:57; Status DC Non-Formulary Medication (Fluticasone/ Salmeterol (Advair 100-50 Diskus)) 1 puff DAILY IH ; Start 10/13/18 at 09:00; Status UNV Furosemide (Lasix) 40 mg [id number] PO Last administered on 10/15/18 08:11; Start 10/13/18 at 09:15 Gabapentin (Neurontin) 600 mg HS PO Last administered on 10/14/18 21:34; Start 10/13/18 at 21:00 Hydralazine HCl (Apresoline) 25 mg BID PO Last administered on 10/15/18 08:12 ; Start 10/13/18 at 09:15 Lactulose (Lactulose) 60 gm DAILY PO Last administered on 10/15/18 08:10; Start 10/13/18 at 09:15; Stop 10/15/18 at 08:57; Status DC Levothyroxine Sodium (Synthroid) 50 mcg DAILY06 PO Last administered on 06:22; Start 10/14/18 at 06:00 Metformin HCl (Glucophage) 500 mg DAILYWBKFT PO Last administered on 10/14/18 08:51; Start 10/13/18 at 09:15; Stop 10/14/18 at 11:04; Status DC Morphine Sulfate (Ms Contin) 60 mg BID PO Last administered on 10/15/18 08:12 ; Start 10/13/18 at 09:15 Pioglitazone HCl (Actos) 30 mg DAILY PO Last administered on 10/15/18 08:10; Start 10/13/18 at 09:15 Famotidine (Pepcid) 40 mg DAILYWSUP PO Last administered on 10/14/18 17:38; Start 10/13/18 at 17:00 Spironolactone (Aldactone) 25 mg DAILY PO Last administered on 10/15/18 08:12 ; Start 10/13/18 at 09:15 Zolpidem Tartrate (Ambien) 5 mg PRN QHS PRN PO INSOMNIA Last administered on 22:06; Start 10/13/18 at 09:30 Zolpidem Tartrate (Ambien) 5 mg HS PO Last administered on 10/14/18 21:35; Start 10/13/18 at 21:00 Budesonide (Pulmicort) 0.5 mg RTBID NEB Last administered on 10/14/18 20:22; Start 10/13/18 at 20:00 Insulin Human Lispro (HumaLOG) 15 units 1X ONCE SQ Last administered on 17:18; Start 10/13/18 at 17:15; Stop 10/13/18 at 17:18; Status DC Amlodipine Besylate (Norvasc) 10 mg QHS PO Last administered on 10/14/18 21:40 ; Start 10/14/18 at 09:00 Multivitamins/ Calcium (Thera-M Plus) 1 tab DAILY PO Last administered on 08:12; Start 10/13/18 at 18:30 Insulin Human Lispro (HumaLOG) 0-7 UNITS QIDACHS SQ Last administered on 08:31; Start 10/14/18 at 07:30 Insulin Human Lispro (HumaLOG) 15 units 1X ONCE SQ Last administered on 21:39; Start 10/13/18 at 21:30; Stop 10/13/18 at 21:31; Status DC Insulin Glargine (Lantus) 25 units QHS SQ Last administered on 10/14/18 21:41 ; Start 10/14/18 at 21:00 Bisacodyl (Dulcolax Supp) 10 mg PRN DAILY PRN SC CONSTIPATION; Start 10/14/18 at 11:30 Heparin Sodium (Porcine) (Heparin Sodium) 5,000 unit Q8HRS SQ Last administered on 10/15/18at 06:21; Start 10/14/18 at 14:00 Vancomycin HCl (Vancomycin Trough Level) 1 each 1X ONCE MC ; Start 10/16/18 at 20:30; Stop 10/16/18 at 20:31 Benzonatate (Tessalon Perle) 100 mg [id number] PRN PO COUGH; Start 10/15/18 at 09: 00 Fish Oil (Fish Oil) 4,000 mg HS PO ; Start 10/15/18 at 21:00 Polyethylene Glycol (miraLAX) 34 gm DAILY PO ; Start 10/15/18 at 09:00 Nystatin (Nystop) 1 phan BID TP ; Start 10/15/18 at 21:00 Doxycycline Hyclate 100 mg/ Dextrose 100 ml @ 50 mls/hr Q12H IV ; Start at 11:00 Active Scripts Active Reported Multivitamins (Multivitamin) 1 Each Tablet 1 Tab PO DAILY Amlodipine Besylate 10 Mg Tablet 1 Tab PO QHS Hydralazine Hcl 25 Mg Tablet 1 Tab PO BID last dose this morning next dose tonight Benadryl (Diphenhydramine Hcl) 25 Mg Capsule 25 Mg PO PRN Q6HRS PRN may use as needed for itching/withdrawal symptoms Spironolactone 25 Mg Tablet 1 Tab PO DAILY last dose this morning next dose tomorrow Morphine Sulfate Er (Morphine Sulfate) 60 Mg Tablet.er 1 Tab PO BID last dose this morning next dose due tonight Carvedilol (Carvedilol) 6.25 Mg Tablet 1 Tab PO BID last dose this morning next dose tonight replaces Bystolic Lyrica (Pregabalin) 75 Mg Capsule 75 Mg PO TID last dose at 11am next dose 7:30pm Simvastatin 40 Mg Tablet 1 Tab PO QHS last dose last night next dose tonight Soma (Carisoprodol) 350 Mg Tablet 0.5 Tab PO QHS at 11pm nightly 175mg (half a tablet) last dose last night next dose tonight Ambien (Zolpidem Tartrate) 10 Mg Tablet 1 Tab PO QHS last dose last night next dose tonight Gabapentin 600 Mg Tablet 600 Mg PO HS last dose last night next dose tonight Ranitidine Hcl 300 Mg Capsule 1 Cap PO DAILYWSUP last dose with supper last night next dose tonight with supper Aspirin 81 Mg Tab.chew 81 Mg PO BID last dose this morning next dose tonight Advair 100-50 Diskus (Fluticasone/Salmeterol) 1 Each Disk.w.dev 1 Puff IH DAILY not given in hospital may resume use at home Klor-Con M20 (Potassium Chloride) 20 Meq Tab.er.prt 1 Tab PO BID 10mEq daily last dose this morning next dose tomorrow Kristalose (Lactulose) 20 Gm Packet 60 Gm PO DAILY not taken today may resume as needed for constipation Furosemide 80 Mg Tablet 40 Mg PO [id number] 40mg twice a day last dose this afternoon next dose tomorrow morning Metformin Hcl 500 Mg Tablet 1 Tab PO DAILY last dose this morning next dose tomorrow Levothyroxine Sodium 50 Mcg Tablet 150 Mg PO DAILY06 last dose this morning next dose tomorrow morning [place] 3-6-9 1,200 mg Softgel (Fish Oil/Borage/Flax/Om3,6,9#1) 1,200 Mg Capsule 4 Tab PO DAILY last dose this morning next dose tomorrow morning Soma (Carisoprodol) 350 Mg Tablet 1 Tab PO DAILY daily at 3am 350mg tablet last dose this morning next dose tomorrow morning Vitals/I & O Vital Sign - Last 24 Hours 10/14/18 10/14/18 10/14/18 10/14/18 09:40 14:37 15:46 17:38 Pulse 99 B/P (MAP) 187/108 Pulse Ox 96 96 O2 Delivery Nasal Cannula Nasal Cannula O2 Flow Rate 4.0 4.0 10/14/18 10/14/18 10/14/18 10/14/18 17:51 19:00 19:25 20:23 Temp 98.5 Pulse 108 74 Resp 14 B/P (MAP) 170/81 (110) 177/98 (124) Pulse Ox 99 95 O2 Delivery Nasal Cannula Nasal Cannula Nasal Cannula O2 Flow Rate 4.0 4.0 4.0 10/14/18 10/14/18 10/14/18 10/15/18 21:33 21:40 22:00 01:00 Temp 97.4 Pulse 74 74 90 94 Resp 30 24 B/P (MAP) 177/98 177/98 159/86 (110) 118/78 (91) Pulse Ox 98 96 O2 Delivery Nasal Cannula Nasal Cannula O2 Flow Rate 4.0 4.0 10/15/18 10/15/18 10/15/18 10/15/18 06:52 08:00 08:11 08:12 Pulse 91 Resp 24 B/P (MAP) 145/68 (93) 145/68 145/68 Pulse Ox 96 O2 Delivery Nasal Cannula Nasal Cannula O2 Flow Rate 4.0 4.0 10/15/18 08:12 O2 Delivery Nasal Cannula Intake and Output 10/14/18 10/14/18 10/15/18 14:59 22:59 06:59 Intake Total 600 ml Output Total 800 ml 3800 ml 2200 ml Balance -200 ml -3800 ml -2200 ml 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
[2018-10-15] MEDS: NYSTATIN TOPICAL POWDER 15GM BOTTLE. TP SCH (09:56)
[2018-10-15] MEDS: POLYETHYLENE GLYCOL 3350 17 GM PACKET. PO SCH (09:58)
[2018-10-15] MEDS: BUDESONIDE 0.5 MG/2 ML NEBU NEB SCH ×2 (10:41→20:00)
[2018-10-15] MEDS ORDERED: DOXYCYCLINE HYCLATE 100 MG in IV DEXTROSE 5% 100 ML IV SCH (11:00)
[2018-10-15 11:26] LABS: BGAS PH 7.44 (7.35-7.45)
[2018-10-15] MEDS ORDERED: MEROPENEM 500 MG in IV NORMAL SALINE 50ML 50 ML IV SCH (14:00)
--- NOTE | 2018-10-15 14:48 | EKG ---
[address] [address] Test Date: 2018-10-14 Test Time: 09:29:31 Pat Name: LIZZIE TRONCOSO Department: Room: [facility] 1 Gender: F [employer] Operator: KRISTY : 1950 Requested By: KELY LEON Order Number: [id number] Reading MD: Scott Coffey Measurements Intervals [place] Rate: 88 P: -4 [place]: 200 QRS: -10 QRSD: 102 T: 2 QT: 420 QTc: 512 Interpretive Statements SINUS RHYTHM LEFTWARD AXIS T ABNORMALITY IN ANTEROSEPTAL LEADS PROLONGED QT ABNORMAL ECG RI6.02 No previous ECG available for comparison Electronically Signed On 10-22-2018 12:52:34 CDT by Scott Coffey
[2018-10-15] MEDS: FAMOTIDINE 20 MG TABLET PO SCH (17:37)
--- NOTE | 2018-10-15 17:48 | NUR ---
PT has changed today from when I saw her and placed the picc on monday. PT having uncontrolled jerking movements, complaining of extreme back pain and nothing provides her with relief, and confused at times. Will continue to monitor. Bone scan scheduled for tomorrow using azael if patient can tolerate laying on table. Max wt is 400 pounds for nuclear medicine table. Aurelia IVAN
[2018-10-15] MEDS ORDERED: PERFLUTREN PROTEIN-A MICROSPHR 0.22 MG/ML 3 ML VIAL. IV ONE (18:30)
[2018-10-15] MEDS ORDERED: OMEGA-3 FATTY ACIDS/FISH OIL 1,000 MG CAPSULE. PO SCH (21:00)
[2018-10-15] MEDS: INSULIN GLARGINE 300 UNITS/3 ML INSULN.PEN. SQ SCH (21:17)
[2018-10-15] MEDS: ACETAMINOPHEN 325 MG TABLET PO PRN (21:23)
[2018-10-15] MEDS: ATORVASTATIN CALCIUM 20 MG TABLET PO SCH (21:23)
[2018-10-15] MEDS: GABAPENTIN 300 MG CAPSULE. PO SCH (21:25)
[2018-10-15] MEDS: ZOLPIDEM 5 MG TABLET. PO SCH (21:25)
[2018-10-15] MEDS: amLODIPine BESYLATE 10 MG TABLET PO SCH (21:26)
[2018-10-15] MEDS: VANCOMYCIN 2 GM in IV NORMAL SALINE 500ML 500 ML IV SCH (21:27)
--- NOTE | 2018-10-15 21:28 | PN ---
DATE: 10/15/2018 SUBJECTIVE: The patient is resting, slightly propped up in bed, continued to have low-grade fever of 100.4. Continued to have cough, is mostly dry hacking. However, she is not still very tight and marked scattered wheezing bilaterally, although I could not appreciate any crepitation. OBJECTIVE: GENERAL: When I examined her this morning, she was sitting propped up in bed, in no apparent respiratory distress. She is slightly pale, but no jaundice, cyanosis, or thyromegaly. No jugular venous distension. No limb edema. VITAL SIGNS: Her heart rate was 99, blood pressure was 146/76, temperature was 100.4, respiratory rate 20, and oxygen saturation was 96% on 4 liters of oxygen. HEAD, EYES, EARS, NOSE AND THROAT: Showed normocephalic, atraumatic. NECK: Supple. HEART: Showed normal first and second heart sounds. No gallop, rub or murmur. CHEST: Shows central trachea, equally reduced expansion, reduced air entry, vesicular sounds with bilateral diffuse scattered rhonchi, could not appreciate any crepitation. ABDOMEN: Slightly distended, soft, nontender. NEUROLOGIC: She is awake, alert, responding appropriately. All cranial nerves are intact. She moves extremities without difficulty. Her intake over the last 24 hours was 1900, output was 4900. LABORATORY DATA: As of this morning, her white cell count is down to 9400, hemoglobin 10, hematocrit 32, MCV 89 and platelet count of 117,000 with normal manual differential. VIPUL SHERIDAN MD DR: YUDI/noemi JOB#: [id number] / [id number]
[2018-10-16] VITALS (18 sets, daily range): BP systolic 104–195; BP diastolic 54–112
[2018-10-16] MEDS: AZTREONAM 1 GM in IV NORMAL SALINE 50ML 50 ML IV SCH ×3 (00:04→14:49)
--- NOTE | 2018-10-16 01:40 | PN ---
DATE: 10/15/2018 SUBJECTIVE: The patient is sitting in her recliner very restless, unable to find a comfortable position; however, she has severe myoclonic jerks concerning for either carbon dioxide retention or too much narcotic. She is allergic to multiple antibiotics including penicillin, sulfa, cephalexin, levofloxacin, and she stated that she has what seemed to be anaphylactic shock to cephalexin. She grew more than 100,000 colony forming units per mL of Gram-negative rods. The identification and sensitivity is still pending and I did speak with Dr. Sanders regarding her choices given that she does have this allergic reaction to CEPHALEXIN and we basically decided to start her on aztreonam 1 gram IV q.8 hourly according to her kidney function. We also added fentanyl 50 mcg IV every 3 hours. We will also arrange for her to have a bone scan tomorrow as the CT scan showed features of some nodules that might be metastatic. PHYSICAL EXAMINATION: GENERAL: When I examined her this afternoon, she was resting slightly propped up comfortably, in no apparent respiratory distress. No pallor, jaundice, cyanosis, lymphadenopathy or thyromegaly. No jugular venous distention. No limb edema. VITAL SIGNS: Her heart rate was 88, blood pressure was 121/65, temperature was 98.8, respiratory rate 20, and oxygen saturation was 96% on 4 liters oxygen. HEAD, EYES, EARS, NOSE AND THROAT: Normocephalic, atraumatic. NECK: Supple. HEART: Showed normal first and second heart sounds with no gallop, rub or murmur. CHEST: Clear to auscultation. No crepitation or rhonchi. ABDOMEN: Distended, soft, nontender. NEUROLOGIC: She is somewhat confused, but without any obvious lateralizing sign. All her cranial nerves intact. She moves extremities without difficulty, although she is unable to sit in one position because of severe back pain. Her intake was 1900, output was 4900. LABORATORY DATA: As of this morning, her white cell count is 9400, hemoglobin 10.4, hematocrit 31.9, MCV 89 and platelet count of 117,000. Her ABGs this morning showed a pH of 7.44, pCO2 of 44, pO2 83 and bicarbonate was 30 and oxygen saturation was 96% on FiO2 of 36%. Her serum sodium was 133, potassium 4.7, chloride 96, bicarbonate 33, anion gap of 4, BUN 28, creatinine 1.6, estimated GFR was 32 mL per minute. Her glucose was 289 and calcium was 8.3. ASSESSMENT: 1. Non-ST segment elevation myocardial infarction. 2. Acute on chronic hypoxic hypercapnic respiratory failure, much improved. 3. Sepsis with lactic acidosis 4. Acute kidney injury on chronic renal disease, much improving. 5. Hypertension, fairly well controlled. 6. Rhabdomyolysis. Her CK is improved down to 76. 7. Type 2 diabetes, suboptimally controlled. 8. Chronic pain syndrome with history of narcotic dependency. The patient has marked myoclonic jerks. The CT scan showed also questionable metastatic nodules. PLAN: I will arrange for her to have the bone scan tomorrow and ultimately she might require an MRI of her lumbar spine and transfer to [facility]. VIPUL SHERIDAN MD DR: YUDI/noemi JOB#: [id number] / [id number]
[2018-10-16] MEDS: LEVOTHYROXINE 50 MCG TABLET PO SCH (06:08)
[2018-10-16] MEDS: HEPARIN for SUB-Q USE 5,000 UNIT/ML VIAL. SQ SCH ×2 (06:08→14:52)
[2018-10-16] MEDS: ACETAMINOPHEN 325 MG TABLET PO PRN (06:35)
[2018-10-16] MEDS: INSULIN LISPRO 300 UNITS/3 ML INSULN.PEN. SQ SCH ×4 (07:30→20:23)
[2018-10-16] MEDS: MORPHINE ER 30 MG TABLET.ER PO SCH ×2 (07:46→20:25)
[2018-10-16] MEDS: hydrALAZINE 25 MG TABLET PO SCH ×3 (07:46→20:24)
[2018-10-16] MEDS: POTASSIUM CHLORIDE 20 MEQ TABLET.ER. PO SCH (07:46)
[2018-10-16] MEDS: PIOGLITAZONE 15 MG TABLET. PO SCH (07:47)
[2018-10-16] MEDS: CARVEDILOL 6.25 MG TABLET PO SCH ×2 (07:47→16:15)
[2018-10-16] MEDS: ASPIRIN 81 MG TAB.CHEW PO SCH (07:48)
[2018-10-16] MEDS: PREGABALIN 75 MG CAPSULE PO SCH ×3 (07:48→20:26)
[2018-10-16] MEDS: FUROSEMIDE 40 MG TABLET PO SCH ×2 (07:48→16:16)
[2018-10-16] MEDS: CARISOPRODOL 350 MG TABLET PO SCH ×2 (07:49→20:26)
[2018-10-16] MEDS: DOCUSATE SODIUM 100 MG CAPSULE PO SCH (07:50)
[2018-10-16] MEDS: MULTIVITAMIN with MINERAL TABLET. PO SCH (07:50)
[2018-10-16] MEDS: NYSTATIN TOPICAL POWDER 15GM BOTTLE. TP SCH (07:51)
[2018-10-16] MEDS: SPIRONOLACTONE 25 MG TABLET PO SCH (07:51)
[2018-10-16] MEDS: LACTOBACILLUS RHAMNOSUS GG 1 CAPSULE. PO SCH (07:52)
[2018-10-16] MEDS: BUDESONIDE 0.5 MG/2 ML NEBU NEB SCH ×2 (08:00→20:04)
[2018-10-16] MEDS: POLYETHYLENE GLYCOL 3350 17 GM PACKET. PO SCH (08:07)
[2018-10-16 08:08] LABS: ALBUMIN 2.1 g/dL (3.4-5.0); ALBUMIN/GLOBULIN RATIO 0.5 (1.0-1.7); CALCIUM 8.4 mg/dL (8.5-10.1); CREATININE 1.4 mg/dL (0.6-1.0); GFR 37.4; POTASSIUM 4.4 mmol/L (3.5-5.1); TOTAL PROTEIN 6.4 g/dL (6.4-8.2)
[2018-10-16 08:46] LABS: HEMATOCRIT 31.4 % (36.0-47.0); HEMOGLOBIN 10.5 g/dL (12.0-15.5); RED BLOOD COUNT 3.5 x10^6/uL (3.50-5.40); RED CELL DISTRIBUTION WIDTH 16.9 % (11.5-14.5)
--- NOTE | 2018-10-16 09:49 | CARD ---
MR#: [id number] Date of Study: 10/15/2018 Ordering Physician: CASSY JOHNS, Referring Physician: Olegario MTZ: Viraj Boss RDCS APPROVED REPORT EXAM: Two-dimensional and M-mode echocardiogram with Doppler and color Doppler. INDICATION Dyspnea Congestive Heart Failure Echo Enhancing Agent Indication: Endocardial border delineation Agent/Amount Used: [id number] RISK FACTORS Hypertension Obesity Hyperlipidemia Diabetes 2D DIMENSIONS Left Atrium(2D)5.6 (1.6-4.0cm)IVSd1.3 (0.7-1.1cm) Aortic Root(2D)3.2 (2.0-3.7cm)LVDd4.8 (3.9-5.9cm) PWd1.3 (0.7-1.1cm)LVDs3.6 (2.5-4.0cm) FS (%) 24.6 %SV51.8 ml Aortic Valve AoV Peak Martínez.179.3cm/Ana M Peak GR.12.9mmHg LVOT Peak Martínez.123.1cm/s Mitral Valve MV E Yyepugtq693.1cm/sMV DECEL REVS818yd MV A Mngfzwbz93.3cm/sE/A Ratio1.1 Pulmonary Valve PV Peak Auznawad788.0cm/sPV Peak Grad.7mmHg Tricuspid Valve TR P. Adwvoeof244kg/sTR Peak Gr.41mmHg LEFT VENTRICLE The left ventricle is normal size. There is mild concentric left ventricular hypertrophy. The left ve ntricular systolic function is normal . The ejection fraction is 55-60%. There is normal LV segmental wall motion. RIGHT VENTRICLE Not well visualized. Not well visualized. ATRIA The left atrium size appears normal. The right atrium size appears normal. AORTIC VALVE The aortic valve is normal in structure and function. Doppler and Color Flow revealed no significant aortic regurgitation. There is no significant aortic valvular stenosis. MITRAL VALVE The mitral valve is not well visualized. There is no mitral valve stenosis. Doppler and Color-flow re vealed trace mitral regurgitation. TRICUSPID VALVE There is no tricuspid valve stenosis. GREAT VESSELS The aortic root is normal in size. PERICARDIAL EFFUSION There is no pleural effusion. There is no evidence of significant pericardial effusion. Critical Notification Critical Value: No <Conclusion> The left ventricular systolic function is normal . The ejection fraction is 55-60%. There is normal LV segmental wall motion. Doppler and Color-flow revealed trace mitral regurgitation. There is no evidence of significant pericardial effusion. Signed by : Scott Coffey, Electronically Approved : 10/16/2018 09:48:47
--- NOTE | 2018-10-16 10:12 | PDOC ---
PROGRESS NOTES Diagnosis Problem Problems Medical Problems: (1) Dyspnea Status: Acute Assessment Problems Medical Problems: (1) Dyspnea Status: Acute Objective Vital Signs Date Time Temp Pulse Resp B/P (MAP) Pulse Ox O2 Delivery O2 Flow Rate FiO2 10/16/18 09:11 95 Nasal Cannula 4.0 10/16/18 07:47 92 192/112 10/16/18 04:09 98.0 19 Intake and Output 10/16/18 06:59 Intake Total 3380 ml Output Total 4025 ml Balance -645 ml Intake Oral 2680 ml IV Total 700 ml Output Urine Total 4025 ml Review of Relevant I have reviewed the following items tashi (where applicable) has been applied. Labs Laboratory Tests Test 10/14/18 11:53 10/14/18 16:50 10/14/18 20:01 10/14/18 21:15 Glucose (Fingerstick) 405 mg/dL (70-99) 456 mg/dL (70-99) 420 mg/dL (70-99) Vancomycin Level Trough 19.8 mcg/mL (10.0-20.0) Vancomycin Last Dose Date 10/13/18 Vancomycin Last Dose Time 2100 Test 10/15/18 06:35 10/15/18 11:17 10/15/18 11:19 10/15/18 16:30 White Blood Count 9.4 x10^3/uL (4.0-11.0) Red Blood Count 3.57 x10^6/uL (3.50-5.40) Hemoglobin 10.4 g/dL (12.0-15.5) Hematocrit 31.9 % (36.0-47.0) Mean Corpuscular Volume 89 fL (79-100) Mean Corpuscular Hemoglobin 29 pg (25-35) Mean Corpuscular Hemoglobin Concent 33 g/dL (31-37) Red Cell Distribution Width 16.8 % (11.5-14.5) Platelet Count 117 x10^3/uL (140-400) Neutrophils (%) (Auto) 85 % (31-73) Lymphocytes (%) (Auto) 9 % (24-48) Monocytes (%) (Auto) 6 % (0-9) Eosinophils (%) (Auto) 1 % (0-3) Basophils (%) (Auto) 0 % (0-3) Neutrophils # (Auto) 8.0 x10^3uL (1.8-7.7) Lymphocytes # (Auto) 0.8 x10^3/uL (1.0-4.8) Monocytes # (Auto) 0.5 x10^3/uL (0.0-1.1) Eosinophils # (Auto) 0.1 x10^3/uL (0.0-0.7) Basophils # (Auto) 0.0 x10^3/uL (0.0-0.2) Segmented Neutrophils % 83 % (35-66) Band Neutrophils % 5 % (0-9) Lymphocytes % 7 % (24-48) Monocytes % 4 % (0-10) Myelocytes % 1 % (0-0) Toxic Granulation Present Platelet Estimate Decreased (ADEQUATE) Large Platelets Occ Polychromasia Slight Basophilic Stippling Present Anisocytosis Slight Ovalocytes Occ Sodium Level 133 mmol/L (136-145) Potassium Level 4.7 mmol/L (3.5-5.1) Chloride Level 96 mmol/L (98-107) Carbon Dioxide Level 33 mmol/L (21-32) Anion Gap 4 (6-14) Blood Urea Nitrogen 28 mg/dL (7-20) Creatinine 1.6 mg/dL (0.6-1.0) Estimated GFR (Cockcroft-Gault) 32.1 Glucose Level 289 mg/dL (70-99) Calcium Level 8.3 mg/dL (8.5-10.1) Creatine Kinase 76 U/L (26-192) Blood Gas pH 7.44 (7.35-7.45) Blood Gas PCO2 44 mmHg (35-45) Blood Gas PO2 83 mmHg (80-100) Blood Gas HCO3 30 mmol/L (22-26) Arterial Bld O2 Saturation (Calc) 96 % (92-99) FiO2 36 % Glucose (Fingerstick) 342 mg/dL (70-99) 370 mg/dL (70-99) Test 10/15/18 21:07 10/16/18 05:00 10/16/18 07:52 Glucose (Fingerstick) 320 mg/dL (70-99) 243 mg/dL (70-99) White Blood Count 8.0 x10^3/uL (4.0-11.0) Red Blood Count 3.50 x10^6/uL (3.50-5.40) Hemoglobin 10.5 g/dL (12.0-15.5) Hematocrit 31.4 % (36.0-47.0) Mean Corpuscular Volume 90 fL (79-100) Mean Corpuscular Hemoglobin 30 pg (25-35) Mean Corpuscular Hemoglobin Concent 33 g/dL (31-37) Red Cell Distribution Width 16.9 % (11.5-14.5) Platelet Count 94 x10^3/uL (140-400) Sodium Level 134 mmol/L (136-145) Potassium Level 4.4 mmol/L (3.5-5.1) Chloride Level 96 mmol/L (98-107) Carbon Dioxide Level 34 mmol/L (21-32) Anion Gap 4 (6-14) Blood Urea Nitrogen 23 mg/dL (7-20) Creatinine 1.4 mg/dL (0.6-1.0) Estimated GFR (Cockcroft-Gault) 37.4 BUN/Creatinine Ratio 16 (6-20) Glucose Level 253 mg/dL (70-99) Calcium Level 8.4 mg/dL (8.5-10.1) Total Bilirubin 1.0 mg/dL (0.2-1.0) Aspartate Amino Transf (AST/SGOT) 35 U/L (15-37) Alanine Aminotransferase (ALT/SGPT) 50 U/L (14-59) Alkaline Phosphatase 159 U/L (46-116) Total Protein 6.4 g/dL (6.4-8.2) Albumin 2.1 g/dL (3.4-5.0) Albumin/Globulin Ratio 0.5 (1.0-1.7) Microbiology 10/12/18 Blood Culture - Final, Complete 10/12/18 Urine Culture - Preliminary, Resulted 10/12/18 Urine Culture Result 1 (MINNIE) - Preliminary, Resulted Medications Current Medications Aspirin (Children'S Aspirin) 324 mg 1X ONCE PO Last administered on 10/12/18at 19:15; Start 10/12/18 at 19:15; Stop 10/12/18 at 19:16; Status DC Lactated Ringer's 1,000 ml @ 100 mls/hr Q10H IV Last administered on at 00:44; Start 10/12/18 at 19:04; Stop 4/13/19 at 05:03; Status DC Albuterol/ Ipratropium (Duoneb) 3 ml 1X ONCE NEB Last administered on at 20:20; Start 10/12/18 at 19:15; Stop 10/12/18 at 19:16; Status DC Sodium Chloride 1,000 ml @ 1,000 mls/hr 1X ONCE IV Last administered on at 19:59; Start 10/12/18 at 19:15; Stop 10/12/18 at 20:14; Status DC Insulin Human Regular 150 unit/ Sodium Chloride 151.5 ml @ 0 mls/hr 1X ONCE IV Last administered on 10/12/18at 19:58; Start 10/12/18 at 19:15; Stop at 19:21; Status DC Vancomycin HCl 1 gm/Sodium Chloride 250 ml @ 250 mls/hr 1X ONCE IV ; Start 06/20 at 21:00; Stop 10/12/18 at 21:59; Status UNV Vancomycin HCl 2 gm/Sodium Chloride 500 ml @ 250 mls/hr 1X ONCE IV Last administered on 10/12/18at 21:27; Start 10/12/18 at 21:30; Stop 10/12/18 at 23:29 ; Status DC Vancomycin HCl (Vanco Per Pharmacy) 1 each PRN DAILY PRN MC SEE COMMENTS Last administered on 10/15/18at 08:35; Start 10/12/18 at 21:00 Ondansetron HCl (Zofran) 4 mg PRN Q4HRS PRN IV NAUSEA/VOMITING; Start 10/12/18 at 21:00; Stop 10/13/18 at 20:59; Status DC Albuterol/ Ipratropium (Duoneb) 3 ml RTQID NEB Last administered on 10/14/18at 09:40; Start 10/13/18 at 08:00; Stop 10/14/18 at 07:59; Status DC Aspirin (Children'S Aspirin) 81 mg 1X ONCE PO ; Start 10/12/18 at 21:00; Stop 10/12/18 at 21:01; Status DC Multivitamins/ Minerals 10 ml/ Folic Acid 1 mg/ Thiamine HCl 100 mg/Sodium Chloride 1,011.1 ml @ 1,000 mls/ hr 1X ONCE IV Last administered on at 02:30; Start 10/12/18 at 21:00; Stop 10/12/18 at 22:00; Status DC Sodium Chloride 1,000 ml @ 1,000 mls/hr 1X ONCE IV ; Start 10/12/18 at 21:15; Stop 10/12/18 at 22:14; Status DC Clindamycin Phosphate (Cleocin) 300 mg 1X ONCE IM ; Start 10/12/18 at 21:15; Stop 10/12/18 at 21:22; Status DC Clindamycin Phosphate 50 ml @ 100 mls/hr Q8HRS IV Last administered on at 06:22; Start 10/12/18 at 22:00; Stop 10/15/18 at 09:18; Status DC Insulin Human Regular 150 unit/ Sodium Chloride 151.5 ml @ 0 mls/hr 1X ONCE IV Last administered on 10/12/18at 02:05; Start 10/12/18 at 21:30; Stop at 21:31; Status DC Albuterol/ Ipratropium (Duoneb) 3 ml QID NEB ; Start 10/13/18 at 09:00; Stop at 09:00; Status DC Sodium Bicarbonate (Sodium Bicarb Adult 8.4% Syr) 50 meq 1X ONCE IV Last administered on 10/13/18at 05:58; Start 10/12/18 at 21:45; Stop 10/12/18 at 21:46 ; Status DC Furosemide (Lasix) 40 mg 1X ONCE IVP Last administered on 10/13/18at 00:43; Start 10/12/18 at 21:45; Stop 10/12/18 at 21:46; Status DC Lorazepam (Ativan) 2 mg 1X PRN PRN IV seizure; Start 10/12/18 at 21:45 Vancomycin HCl 2 gm/Sodium Chloride 500 ml @ 250 mls/hr Q48H IV ; Start at 21:30; Stop 10/14/18 at 21:30; Status DC Vancomycin HCl (Vancomycin Trough Level) 1 each 1X ONCE MC Last administered on 10/14/18at 20:30; Start 10/14/18 at 20:30; Stop 10/14/18 at 20:31; Status DC Heparin Sodium (Porcine) (Heparin Sodium) 4,000 unit 1X ONCE IV Last administered on 10/13/18at 00:49; Start 10/13/18 at 01:00; Stop 10/13/18 at 01:01 ; Status DC Heparin Sodium/ Dextrose 500 ml @ 0 mls/hr CONT PRN IV SEE I/O RECORD; Start at 00:30; Status Cancel Info (Anti-Coagulation Monitoring By Pharmacy) 1 each PRN DAILY PRN MC SEE COMMENTS; Start 10/13/18 at 00:30; Status Cancel Sodium Bicarbonate (Sodium Bicarb Adult 8.4% Syr) 50 meq STK-MED ONCE .ROUTE ; Start 10/13/18 at 05:29; Stop 10/13/18 at 05:30; Status DC Heparin Sodium/ Dextrose 500 ml @ 0 mls/hr CONT PRN IV SEE I/O RECORD Last administered on 10/13/18at 19:49; Start 10/13/18 at 05:45; Stop 10/14/18 at 13:28 ; Status DC Heparin Sodium (Porcine) (Heparin Sodium) 2,000 unit PRN Q6HRS PRN IV FOLLOW PROTOCOL GUIDELINES; Start 10/13/18 at 05:45; Stop 10/14/18 at 13:28; Status DC Heparin Sodium (Porcine) (Heparin Sodium) 1,000 unit PRN Q6HRS PRN IV FOLLOW PROTOCOL GUIDELINES Last administered on 10/14/18at 07:23; Start 10/13/18 at 05: 45; Stop 10/14/18 at 17:37; Status DC Insulin Human Lispro (HumaLOG) 0-7 UNITS TIDWMEALS SQ Last administered on 10/13at 17:17; Start 10/13/18 at 08:00; Stop 10/13/18 at 21:24; Status DC Dextrose 12.5 gm PRN Q15MIN PRN IV SEE COMMENTS; Start 10/13/18 at 07:15 Lactobacillus Rhamnosus (Culturelle) 1 cap BID PO Last administered on at 07:52; Start 10/13/18 at 09:00 Vancomycin HCl 2 gm/Sodium Chloride 500 ml @ 250 mls/hr Q24H IV Last administered on 10/15/18at 21:27; Start 10/13/18 at 21:00 Carisoprodol (Soma) 175 mg QHS PO Last administered on 10/15/18 21:24; Start 10/13/18 at 21:00 Carisoprodol (Soma) 350 mg DAILY PO Last administered on 10/16/18 07:49; Start 10/13/18 at 09:00 Carvedilol (Coreg) 6.25 mg BIDWMEALS PO Last administered on 10/16/18 07:47; Start 10/13/18 at 09:00 Diphenhydramine HCl (Benadryl) 25 mg PRN Q6HRS PRN PO ITCHING; Start 10/13/18 at 08:30 Potassium Chloride (Klor-Con) 20 meq BID PO Last administered on 10/16/18 07: 46; Start 10/13/18 at 09:00 Pregabalin (Lyrica) 75 mg TID PO Last administered on 10/16/18 07:48; Start at 09:00 Atorvastatin Calcium (Lipitor) 20 mg QHS PO Last administered on 10/15/18 21: 23; Start 10/13/18 at 21:00 Aspirin (Children'S Aspirin) 81 mg BID PO Last administered on 10/16/18 07:48 ; Start 10/13/18 at 09:15 Non-Formulary Medication (Azithromycin (Zithromax)) 250 mg DAILY PO ; Start at 09:00; Stop 10/13/18 at 18:28; Status DC Benzonatate (Tessalon Perle) 100 mg [id number] PO Last administered on 10/14/18 21 :33; Start 10/13/18 at 09:15; Stop 10/15/18 at 08:57; Status DC Docusate Sodium (Colace) 100 mg DAILY PO Last administered on 10/15/18 08:12; Start 10/13/18 at 09:15 Fish Oil (Fish Oil) 4,000 mg DAILY PO Last administered on 10/14/18 08:51; Start 10/14/18 at 09:00; Stop 10/15/18 at 08:57; Status DC Non-Formulary Medication (Fluticasone/ Salmeterol (Advair 100-50 Diskus)) 1 puff DAILY IH ; Start 10/13/18 at 09:00; Status UNV Furosemide (Lasix) 40 mg [id number] PO Last administered on 10/16/18 07:48; Start 10/13/18 at 09:15 Gabapentin (Neurontin) 600 mg HS PO Last administered on 10/15/18 21:25; Start 10/13/18 at 21:00 Hydralazine HCl (Apresoline) 25 mg BID PO Last administered on 10/15/18 08:12 ; Start 10/13/18 at 09:15; Stop 10/15/18 at 11:06; Status DC Lactulose (Lactulose) 60 gm DAILY PO Last administered on 10/15/18 08:10; Start 10/13/18 at 09:15; Stop 10/15/18 at 08:57; Status DC Levothyroxine Sodium (Synthroid) 50 mcg DAILY06 PO Last administered on 06:08; Start 10/14/18 at 06:00 Metformin HCl (Glucophage) 500 mg DAILYWBKFT PO Last administered on 10/14/18 08:51; Start 10/13/18 at 09:15; Stop 10/14/18 at 11:04; Status DC Morphine Sulfate (Ms Contin) 60 mg BID PO Last administered on 10/16/18 07:46 ; Start 10/13/18 at 09:15 Pioglitazone HCl (Actos) 30 mg DAILY PO Last administered on 10/16/18 07:47; Start 10/13/18 at 09:15 Famotidine (Pepcid) 40 mg DAILYWSUP PO Last administered on 10/15/18 17:37; Start 10/13/18 at 17:00 Spironolactone (Aldactone) 25 mg DAILY PO Last administered on 10/16/18 07:51 ; Start 10/13/18 at 09:15 Zolpidem Tartrate (Ambien) 5 mg PRN QHS PRN PO INSOMNIA Last administered on 22:06; Start 10/13/18 at 09:30 Zolpidem Tartrate (Ambien) 5 mg HS PO Last administered on 10/15/18 21:25; Start 10/13/18 at 21:00 Budesonide (Pulmicort) 0.5 mg RTBID NEB Last administered on 10/16/18 08:00; Start 10/13/18 at 20:00 Insulin Human Lispro (HumaLOG) 15 units 1X ONCE SQ Last administered on 17:18; Start 10/13/18 at 17:15; Stop 10/13/18 at 17:18; Status DC Amlodipine Besylate (Norvasc) 10 mg QHS PO Last administered on 10/15/18 21:26 ; Start 10/14/18 at 09:00 Multivitamins/ Calcium (Thera-M Plus) 1 tab DAILY PO Last administered on 08:12; Start 10/13/18 at 18:30 Insulin Human Lispro (HumaLOG) 0-7 UNITS QIDACHS SQ Last administered on 07:30; Start 10/14/18 at 07:30 Insulin Human Lispro (HumaLOG) 15 units 1X ONCE SQ Last administered on 21:39; Start 10/13/18 at 21:30; Stop 10/13/18 at 21:31; Status DC Insulin Glargine (Lantus) 25 units QHS SQ Last administered on 10/15/18 21:17 ; Start 10/14/18 at 21:00 Bisacodyl (Dulcolax Supp) 10 mg PRN DAILY PRN MA CONSTIPATION; Start 10/14/18 at 11:30 Heparin Sodium (Porcine) (Heparin Sodium) 5,000 unit Q8HRS SQ Last administered on 10/16/18 06:08; Start 10/14/18 at 14:00 Vancomycin HCl (Vancomycin Trough Level) 1 each 1X ONCE MC ; Start 10/16/18 at 20:30; Stop 10/16/18 at 20:31 Benzonatate (Tessalon Perle) 100 mg [id number] PRN PO COUGH Last administered on 07:48; Start 10/15/18 at 09:00 Fish Oil (Fish Oil) 4,000 mg HS PO ; Start 10/15/18 at 21:00 Polyethylene Glycol (miraLAX) 34 gm DAILY PO Last administered on 10/15/18 09: 58; Start 10/15/18 at 09:00 Nystatin (Nystop) 1 phan BID TP Last administered on 10/16/18 07:51; Start at 21:00 Doxycycline Hyclate 100 mg/ Dextrose 100 ml @ 50 mls/hr Q12H IV Last administered on 10/15/18 09:56; Start 10/15/18 at 11:00; Stop 10/15/18 at 19:04 ; Status DC Hydralazine HCl (Apresoline) 25 mg TID PO Last administered on 10/16/18 07:46 ; Start 10/15/18 at 14:00 Meropenem 500 mg/ Sodium Chloride 50 ml @ 100 mls/hr Q8HRS IV ; Start 10/15/18 at 14:00; Stop 10/15/18 at 17:00; Status DC Acetaminophen (Tylenol) 650 mg PRN Q6HRS PRN PO PAIN / TEMP Last administered on 10/16/18 06:35; Start 10/15/18 at 13:45 Fentanyl Citrate (Fentanyl 2ml Vial) 50 mcg PRN Q2HR PRN IV PAIN Last administered on 10/16/18 04:47; Start 10/15/18 at 15:45; Stop 10/16/18 at 07:37 ; Status DC Aztreonam 1 gm/ Sodium Chloride 50 ml @ 100 mls/hr Q8HRS IV Last administered on 10/16/18 06:36; Start 10/15/18 at 22:00 Perflutren Protein Type A Microsphe (Optison) 0.66 mg 1X ONCE IV Last administered on 10/14/18 18:40; Start 10/15/18 at 18:30; Stop 10/15/18 at 18:31 ; Status DC Fentanyl Citrate (Fentanyl 2ml Vial) 100 mcg PRN Q2HR PRN IV PAIN Last administered on 10/16/18 07:45; Start 10/16/18 at 07:45 Lorazepam (Ativan) 2 mg PRN Q4HRS PRN IV ANXIETY / AGITATION Last administered on 10/16/18 07:45; Start 10/16/18 at 07:45 Active Scripts Active Reported Multivitamins (Multivitamin) 1 Each Tablet 1 Tab PO DAILY Amlodipine Besylate 10 Mg Tablet 1 Tab PO QHS Hydralazine Hcl 25 Mg Tablet 1 Tab PO BID last dose this morning next dose tonight Benadryl (Diphenhydramine Hcl) 25 Mg Capsule 25 Mg PO PRN Q6HRS PRN may use as needed for itching/withdrawal symptoms Spironolactone 25 Mg Tablet 1 Tab PO DAILY last dose this morning next dose tomorrow Morphine Sulfate Er (Morphine Sulfate) 60 Mg Tablet.er 1 Tab PO BID last dose this morning next dose due tonight Carvedilol (Carvedilol) 6.25 Mg Tablet 1 Tab PO BID last dose this morning next dose tonight replaces Bystolic Lyrica (Pregabalin) 75 Mg Capsule 75 Mg PO TID last dose at 11am next dose 7:30pm Simvastatin 40 Mg Tablet 1 Tab PO QHS last dose last night next dose tonight Soma (Carisoprodol) 350 Mg Tablet 0.5 Tab PO QHS at 11pm nightly 175mg (half a tablet) last dose last night next dose tonight Ambien (Zolpidem Tartrate) 10 Mg Tablet 1 Tab PO QHS last dose last night next dose tonight Gabapentin 600 Mg Tablet 600 Mg PO HS last dose last night next dose tonight Ranitidine Hcl 300 Mg Capsule 1 Cap PO DAILYWSUP last dose with supper last night next dose tonight with supper Aspirin 81 Mg Tab.chew 81 Mg PO BID last dose this morning next dose tonight Advair 100-50 Diskus (Fluticasone/Salmeterol) 1 Each Disk.w.dev 1 Puff IH DAILY not given in hospital may resume use at home Klor-Con M20 (Potassium Chloride) 20 Meq Tab.er.prt 1 Tab PO BID 10mEq daily last dose this morning next dose tomorrow Kristalose (Lactulose) 20 Gm Packet 60 Gm PO DAILY not taken today may resume as needed for constipation Furosemide 80 Mg Tablet 40 Mg PO [id number] 40mg twice a day last dose this afternoon next dose tomorrow morning Metformin Hcl 500 Mg Tablet 1 Tab PO DAILY last dose this morning next dose tomorrow Levothyroxine Sodium 50 Mcg Tablet 150 Mg PO DAILY06 last dose this morning next dose tomorrow morning [place] 3-6-9 1,200 mg Softgel (Fish Oil/Borage/Flax/Om3,6,9#1) 1,200 Mg Capsule 4 Tab PO DAILY last dose this morning next dose tomorrow morning Soma (Carisoprodol) 350 Mg Tablet 1 Tab PO DAILY daily at 3am 350mg tablet last dose this morning next dose tomorrow morning Vitals/I & O Vital Sign - Last 24 Hours 10/15/18 10/15/18 10/15/18 10/15/18 10:43 11:00 11:05 13:00 Temp 100.4 Pulse 94 96 Resp 24 B/P (MAP) 148/73 (98) 144/72 (96) Pulse Ox 96 94 94 O2 Delivery Nasal Cannula Nasal Cannula Nasal Cannula O2 Flow Rate 4.0 4.0 4.0 10/15/18 10/15/18 10/15/18 10/15/18 15:10 16:00 16:13 16:13 Temp 98.8 Pulse 88 87 Resp 20 B/P (MAP) 121/65 (83) Pulse Ox 96 O2 Delivery Nasal Cannula Nasal Cannula O2 Flow Rate 4.0 10/15/18 10/15/18 10/15/18 10/15/18 17:00 17:47 18:02 19:50 Temp 98.6 Pulse 84 84 Resp 21 B/P (MAP) 123/71 (88) Pulse Ox 96 95 94 O2 Delivery Nasal Cannula Nasal Cannula Nasal Cannula O2 Flow Rate 4.0 4.0 4.0 10/15/18 10/15/18 10/15/18 10/15/18 20:00 20:30 20:31 20:32 Temp 102.2 Pulse 94 Resp 25 B/P (MAP) 185/86 (119) Pulse Ox 95 95 O2 Delivery Nasal Cannula Nasal Cannula Nasal Cannula O2 Flow Rate 4.0 4.0 4.0 10/15/18 10/15/18 10/15/18 10/15/18 21:00 21:24 21:26 21:26 Pulse 96 95 95 Resp 24 B/P (MAP) 144/76 (98) 144/76 144/76 Pulse Ox 95 94 O2 Delivery Nasal Cannula Nasal Cannula O2 Flow Rate 4.0 4.0 10/15/18 10/15/18 10/16/18 10/16/18 22:00 23:30 00:08 01:08 Temp 99.2 Pulse 100 96 84 Resp 12 16 B/P (MAP) 137/85 (102) 114/54 (74) 104/66 (79) Pulse Ox 97 95 93 O2 Delivery Nasal Cannula Nasal Cannula Nasal Cannula Nasal Cannula O2 Flow Rate 4.0 4.0 4.0 4.0 10/16/18 10/16/18 10/16/18 10/16/18 01:38 02:10 03:26 04:09 Temp 98.0 Pulse 84 84 92 Resp B/P (MAP) 107/55 (72) 140/71 (94) 131/72 (91) Pulse Ox 95 96 95 99 O2 Delivery Nasal Cannula Nasal Cannula Nasal Cannula Nasal Cannula O2 Flow Rate 4.0 4.0 4.0 4.0 10/16/18 10/16/18 10/16/18 10/16/18 04:47 05:26 05:30 07:45 Pulse Ox 93 94 94 O2 Delivery Nasal Cannula Nasal Cannula Nasal Cannula Nasal Cannula O2 Flow Rate 4.0 4.0 4.0 4.0 10/16/18 10/16/18 10/16/18 10/16/18 07:46 07:46 07:47 08:00 Pulse 92 92 B/P (MAP) 196/112 192/112 Pulse Ox 94 O2 Delivery Nasal Cannula Nasal Cannula O2 Flow Rate 4.0 4.0 10/16/18 10/16/18 08:15 09:11 Pulse Ox 95 95 O2 Delivery Nasal Cannula Nasal Cannula O2 Flow Rate 4.0 4.0 Intake and Output 10/15/18 10/15/18 10/16/18 14:59 22:59 06:59 Intake Total 1340 ml 840 ml 1200 ml Output Total 850 ml 2125 ml 1050 ml Balance 490 ml -1285 ml 150 ml JEANETTE BOTELLO [employer] Oct 16, 2018 10:12
--- NOTE | 2018-10-16 13:22 | RAD ---
Radionuclide bone scan-limited, 10/16/2018: HISTORY: Back pain, fall, pulmonary nodules, possible bony metastatic disease Imaging of the spine was performed following IV injection of 25 mCi of technetium 99m MDP. No previous bone scan is available at this time for comparison purposes. The following findings are delineated: 1. There is increased activity throughout the mid and lower thoracic spine which is most prominent laterally on both sides. This corresponds in location to extensive hypertrophic degenerative changes with marginal spurring evident on the CT study. The nonfocal pattern does not suggest metastatic disease or a definite recent fracture. 2. Increased activity at both sternoclavicular articulations is compatible with arthritis. Electronically signed by: Ji Simmons MD (10/16/2018 1:19 PM) [facility]
[2018-10-16 13:56] LABS: BGAS PH 7.39 (7.35-7.45)
[2018-10-16] MEDS: FAMOTIDINE 20 MG TABLET PO SCH (16:17)
--- NOTE | 2018-10-16 17:49 | NUR ---
Pt having intermittent pain throughout day, moaning and rating 10/10. Some comfort with Fentanyl and Ativan dosage increased. Transfer orders placed for pt to transfer to [place], currently waiting on bed. Family notified of transfer orders. Spoke with daughter, gave Ioana update on pt plan of care, pain management, possible further testing and new pain management consult for Dr. Dennis. Pt had no appetite for meals today, ate applesauce and drank water. Will continue to monitor.
[2018-10-16] MEDS: INSULIN GLARGINE 300 UNITS/3 ML INSULN.PEN. SQ SCH (20:23)
[2018-10-16] MEDS: amLODIPine BESYLATE 10 MG TABLET PO SCH (20:25)
[2018-10-16] MEDS: GABAPENTIN 300 MG CAPSULE. PO SCH (20:25)
[2018-10-16] MEDS: ATORVASTATIN CALCIUM 20 MG TABLET PO SCH (20:26)
--- NOTE | 2018-10-16 20:54 | NUR ---
Transfer to [facility] Pt transferred to [facility] via EMS at 2039. Report called to [facility] by MARZENA Lu, at approx [phone]. Pt going to room 658. Pt left with all belongings. DL PICC and boykin remain in place. Pt received nightly scheduled insulin, Humalog and Lantus (2 units and 25 units, respectively), as well as scheduled cardiac and BP medications and pain medication. MARZENA Goncalves, who will be pt's RN at [facility], called at 2044 and notified that pt had left and which medications had been given. Ivanna also notified that pt scheduled for Vanc trough that had not yet been drawn and previously Vanc level of 19.8, as well as 2199 scheduled Heparin and Azactam that had not been given. Pt's daughter Ioana called at approx 2054 and notified that pt had departed for [facility]. Pt's VS at transfer: 127/70 (R radial artery), HR 90, RR 22, Temp 97.6 oral, SpO2 96% on 4L NC. Rad Grey RN
--- NOTE | 2018-11-15 18:54 | DS ---
DATE OF DISCHARGE: 10/16/2018 HISTORY OF PRESENT ILLNESS: The patient is a 67-year-old female patient, who was admitted on 10/13/2018. She was brought to the Emergency Room as she fell at home and also has been running fever for the last week or so prior to admission. Thus seems to be getting worse. Her family found her on the floor and in Emergency Room she was found to have white cell count of 19,000, sedimentation rate of 93 and blood sugar of 300. She has also lactic acidosis. She has elevated troponin and BNP of 12,000. Her TSH was at 99.7. D-dimer was elevated. She was admitted and was treated with IV antibiotic. She was initially started on vancomycin and doxycycline as she is allergic to multiple antibiotics including PENICILLIN, SULFA, CEPHALEXIN, CODEINE, LEVOFLOXACIN. Initial investigation also showed that she has acute kidney injury. Her creatinine was 3.2. She was hyponatremic and her troponin was elevated at 0.47. Her beta natriuretic peptide was more than 12,000. Her kidney function has gradually improved such that her creatinine came down to 1.4 mg, given that she has multiple allergies, we did start her on aztreonam as she grew gram-negative rods that were eventually identified as Klebsiella pneumoniae with growth of more than 100,000 colony forming units per mL. The bacteria was pansensitive and she is on aztreonam 1 gram IV q.8 hourly. Her white cell count came down from 19,000-8000. She has multiple imaging. She fell and she has been complaining of severe back pain and underwent a CT scan. Chest x-ray, which showed the patient has bilateral parenchymal airspace opacities that represents atelectasis, moderate cardiomegaly. Her pelvic x-ray showed there is moderate to large volume colonic stool content limiting evaluation of the iliac wing and sacrum; however, even within these constraints there was no evidence of acute fracture or dislocation. No pubic symphysis and SI joint disease. Did have a pelvic CT scan, which basically showed no acute fracture, given that her pain was mostly in the lumbar spine. The CT scan of the lumbar spine showed she has severe degenerative changes of lumbar spine without a definite acute fracture. She did have total body bone scan, which basically showed finding of degenerative disk disease without any metastases. As the patient continued to have intractable pain decision was made to transfer her to [facility] to arrange for an MRI of the lumbar spine and to consult the statuary painter as well as the infectious disease specialist. PHYSICAL EXAMINATION: GENERAL: On discharging her from [facility] the patient was resting, slightly propped up in bed, clearly in severe pain. VITAL SIGNS: Her heart rate was 90, blood pressure was 127/70, temperature was 97.6, respiratory rate was 22 and oxygen saturation was 96% on 4 liters of oxygen. HEAD, EYES, EARS, NOSE AND THROAT: Showed normocephalic, atraumatic. NECK: Supple. HEART: Showed normal first and second heart sounds. No gallop, rub or murmur. CHEST: Clear to auscultation. No crepitation or rhonchi. ABDOMEN: Distended, soft, nontender. No guarding or rigidity. No organomegaly. All hernial orifice intact. Bowel sounds normal. NEUROLOGIC: She was very lethargic, moaning and groaning with every movement. She is unable to be comfortable on any position because of severe back pain. She is able to move her upper extremities to much great concern than lower extremities. The patient was discharged to [facility] with the plan to consult the pain management, office communication professor as well as Infectious Disease specialist. She did grow Klebsiella pneumoniae that is sensitive to all antibiotics. We did start her on aztreonam 1 gram IV 3 times a day. FINAL DISCHARGE DIAGNOSES: 1. Severe intractable pain with the finding on CT scan and bone scan of degenerative disk disease, no metastases 2. Urinary tract infection with growth of Klebsiella pneumoniae that is pansensitive. Acute kidney injury improved. Her creatinine came down from 3.2-1.4. VIPUL SHERIDAN MD DR: YUDI/noemi JOB#: [id number] / [id number]
== END 2018-10-16 20:40 | disposition short-term general hospital (02) | DRG 871 ==
LOC: ER 18:57 → UNDOADMIN 19:00 → ICU 19:00
PROVIDERS: ADMIT Family Medicine; ATTEND Internal Medicine
PROC: 02HV33Z Insertion of Infusion Device into Superior Vena Cava, Percutaneous Approach (ICD-10-PCS; principal; 2018-10-13)
PROC: B548ZZA Ultrasonography of Superior Vena Cava, Guidance (ICD-10-PCS; 2018-10-13)
DX: A41.9 Sepsis, unspecified organism (principal); I50.33 Acute on chronic diastolic (congestive) heart failure; I21.A1 Myocardial infarction type 2; J18.9 Pneumonia, unspecified organism; J96.21 Acute and chronic respiratory failure with hypoxia; J96.22 Acute and chronic respiratory failure with hypercapnia; E46 Unspecified protein-calorie malnutrition; E87.0 Hyperosmolality and hypernatremia; I13.0 Hypertensive heart and chronic kidney disease with heart failure and stage 1 through stage 4 chronic kidney disease, or unspecified chronic kidney disease; Z68.43 Body mass index [BMI] 50.0-59.9, adult; J44.0 Chronic obstructive pulmonary disease with (acute) lower respiratory infection; N17.9 Acute kidney failure, unspecified; M62.82 Rhabdomyolysis; N39.0 Urinary tract infection, site not specified; F32.9 Major depressive disorder, single episode, unspecified; M19.90 Unspecified osteoarthritis, unspecified site; E11.22 Type 2 diabetes mellitus with diabetic chronic kidney disease; E11.65 Type 2 diabetes mellitus with hyperglycemia; I87.2 Venous insufficiency (chronic) (peripheral); I87.8 Other specified disorders of veins; E66.01 Morbid (severe) obesity due to excess calories; E78.00 Pure hypercholesterolemia, unspecified; E78.5 Hyperlipidemia, unspecified; E89.0 Postprocedural hypothyroidism; G47.33 Obstructive sleep apnea (adult) (pediatric); G25.3 Myoclonus; G89.4 Chronic pain syndrome; I25.10 Atherosclerotic heart disease of native coronary artery without angina pectoris; M47.816 Spondylosis without myelopathy or radiculopathy, lumbar region; M79.7 Fibromyalgia; N18.3 Chronic kidney disease, stage 3 (moderate); W01.0XXA Fall on same level from slipping, tripping and stumbling without subsequent striking against object, initial encounter; Z82.49 Family history of ischemic heart disease and other diseases of the circulatory system; Z85.850 Personal history of malignant neoplasm of thyroid; Z87.891 Personal history of nicotine dependence; Y99.8 Other external cause status; Z88.2 Allergy status to sulfonamides; Y93.89 Activity, other specified; Y92.098 Other place in other non-institutional residence as the place of occurrence of the external cause; Z79.899 Other long term (current) drug therapy; Z90.710 Acquired absence of both cervix and uterus; Z98.51 Tubal ligation status; Z82.3 Family history of stroke
CPT/HCPCS: 99291; 99292; C8929; 36415; 36569; 36600; 70450; 71045; 71250; 72125; 72131; 72170; 72192; 78300; 80048; 80053; 80061; 80076; 80202; 80307; 81001; 82550; 82803; 82947; 83605; 83690; 83735; 83874; 83880; 84443; 84484; 85007; 85025; 85027; 85379; 85610; 85651; 85730; 87040; 87070; 87077; 87086; 87186; 87205; 87641; 87804; 87880; 93005; 93925; 93970; 94640; 96365; 96368; A9503; G0238; G0480; J1644; J1815; J1940; J2060; J3010; J3370; J3490; J7040; J7120; J7620; J7626; Q9956; J7030